=== PATIENT | female | born 1975 | race Caucasian/White ===

== ENCOUNTER → 2019-01-10 | Day surgery (SDC) | payer OTHER ==
[2018-12-31 15:26] LABS: ANION GAP 14.3 mmol/L (8-16); BLOOD UREA NITROGEN 22 mg/dL (7-26); BUN/CREATININE RATIO 24 (6-25); CALCIUM 10.1 mg/dL (8.4-10.2); CARBON DIOXIDE 24 mmol/L (22-29); CHLORIDE 103 mmol/L (98-107); CREATININE, SERUM 0.91 mg/dL (0.57-1.11); EST GLOMERULAR FILTRATION RATE > 60 ML/MIN (60-); GLUCOSE 90 mg/dL (74-118); POTASSIUM 4.3 mmol/L (3.5-5.1); SODIUM 137 mmol/L (136-145)
--- NOTE | 2018-12-31 16:01 | Diagnostic Imaging Report ---
EXAM: ABDOMEN-1VIEW (KUB) DATE: 12/31/2018 2:49 PM INDICATION: Preoperative evaluation, ESWL COMPARISON: None Impression: Bowel gas pattern appears nonobstructive. No pathologic without a loops of bowel are identified. No intraperitoneal free air is appreciated. There is a subcentimeter calcification identified overlying the left renal shadow which may represent renal stone. No other abnormal intraabdominal calcification is appreciated. No acute osseous abnormality is identified. Signed by: Dr. Earl Burden MD on 12/31/2018 3:58 PM
[~2019-01-10] MED LIST: AMPICILLIN SOD 1 GM/NS 50ML 50 ML IV ONE; B&O 60MG R/S 60 MG SUPP PR ONE; CEFTRIAXONE SOD 1 GM/NS 50 ML 50 ML IV ONE; CEFTRIAXONE SOD 1 GRAM/0.9% SOD CHL 50ML BAG IV ONE; DEXAMETHASONE SOD PHOS INJ 4 MG/ML VIAL ONE; FENTANYL CITRATE/PF 100MCG/2 ML INJ ONE; HYDRALAZINE HCL 20 MG/ML VIAL ONE; HYDROMORPHONE 2MG/ML 2 MG/ML ML ONE; IOPAMIDOL 610MG/1ML 300 MG/ML VIAL IV ONE; LIDOCAINE HCL 2% LOCAL INJ 5 ML SDV VIAL INJ ONE; METOCLOPRAMIDE HCL 10 MG/2ML VIAL ONE; MIDAZOLAM HCL 2 MG/2 ML VIAL ONE; ONDANSETRON HCL INJ 2MG/ML 2ML 2 MG/ML VIAL ONE; OXYBUTYNIN CHLOR5 M1 PO; PROMETHAZINE HCL (IM) 25 MG/ML VIAL ONE; PROPOFOL IV EMULSION 10 MG/ML 20 ML VIAL ONE; SEVOFLURANE INHAL SOLN 250 ML PEN BTL ONE
--- OUTSIDE RECORDS SUMMARY | 2019-01-10 09:07 | XMS REPORT ---
Author Author [facility] Address Unknown Phone Unavailable Care Team Providers Care Hydrogen Treater Name Role Phone MELINA BOND Unavailable Unavailable Problems This patient has no known problems. Allergies, Adverse Reactions, Alerts This patient has no known allergies or adverse reactions. Medications This patient has no known medications. Results Test Description Test Time Test Comments Text Results Atomic Results Result Comments ABDOMEN-1VIEW (KUB) 2018-12-31 15:56:00 [place] [address] Patient Name: ANNA MAYO MR #: [id number] : 1975 Age/Sex: 43/F Req #: [id number] Adm Physician: Ordered by: MELINA BOND MD Report #: [id number] Location: OR Room/Bed: Procedure: [id number] DX/ABDOMEN-1VIEW (KU) Exam Date: 12/31/18 Exam Time: 1516 REPORT STATUS: Signed EXAM: ABDOMEN-1VIEW (KU) DATE: 12/31/2018 2:49 PM INDICATION: Preoperative evaluation, ESWL COMPARISON: None Impression: Bowel gas pattern appears nonobstructive. No pathologic without a loops of bowel are identified. No intraperitoneal free air is appreciated. There is a subcentimeter calcification identified overlying the left renal shadow which may represent renal stone. No other abnormal intraabdominal calcification is appreciated. No acute osseous abnormality is identified. Signed by: Dr. Earl Borrero MD on 12/31/2018 3:58 PM Dictated By: EARL BORRERO MD [id number] Transcribed By: MAGUI on 12/31/18 4412 COPY TO: MELINA BOND MD
[2019-01-10 14:40] VITALS: BP 138/84
--- NOTE | 2019-02-15 21:57 | Operative Report ---
DATE OF PROCEDURE: 01/10/2019 SURGEON: Jaya Gleason MD PREOPERATIVE DIAGNOSES: 1. Left nephrolithiasis. 2. Gross hematuria. 3. Microscopic hematuria. 4. Urinary tract infection. POSTOPERATIVE DIAGNOSES: 1. Left nephrolithiasis. 2. Gross hematuria. 3. Microscopic hematuria. 4. Urinary tract infection. 5. Grade 1 cystocele. 6. Grade 1 rectocele. 7. Urethral hypermobility. OPERATION PERFORMED: Note, these were all staged procedures as part of multi-staged and multi-step process in managing the patient's urolithiasis. 1. Left-sided extracorporeal shockwave lithotripsy (separate procedure performed for the left lower calyceal 6 mm stone). 2. Cystourethroscopy with bilateral ureteral catheterization and retrograde ureteropyelography (separate procedure performed for the hematuria and urinary tract infections). 3. Interpretation of retrograde ureteropyelography. 4. Supervision of fluoroscopy, no radiologist present. 5. Pelvic examination under anesthesia. ANESTHESIA: General. COMPLICATIONS: None. CLINICAL SUMMARY: Ms. Elder is a 43-year-old woman with the above preoperative diagnoses. She was brought for the above procedures. She is aware of the risks of bleeding, infection, injury to adjacent structures, need for additional procedures, and elected to proceed. OPERATIVE PROCEDURE IN DETAIL: Informed consent was verified. Hilary Elder was properly identified, taken to the operating room, placed on the lithotripsy table in supine position, and anesthesia was uneventfully begun. The patient's left lower pole 6 mm stone was localized with biplanar fluoroscopy. A total of 3000 shocks were delivered with excellent fragmentation. The stone, however, was hard and required full 3000 shocks. The patient was then carefully and gently repositioned in dorsal lithotomy position with all pressure points well padded. Her genitalia were prepared and draped in usual sterile fashion. The cystoscope sheath with obturator in place was atraumatically inserted into the patient's urethra and bladder was drained. Panendoscopy of the urinary bladder revealed a grade 1-2 trabeculations, but no tumors, no stones, no diverticula, no suspicious mucosal lesions were identified. An 8-Swedish catheter was used to cannulate each ureter and retrograde ureteropyelography was performed. Interpretation of retrograde ureteropyelography contrast was instilled in a retrograde fashion bilaterally. The right side was unremarkable. There were no tumors. There were no suspicious lesions. Unobstructed drainage was observed. The left side exhibited no hydronephrosis. There were filling defects corresponding to the lithotripsy and the urolithiasis. Unobstructed drainage was observed fluoroscopically. The patient's bladder was drained and cystoscope was withdrawn. Pelvic examination revealed a grade 1 cystocele, grade 1 rectocele. No suspicious mucosal lesions were identified. There was urethral hypermobility present. No abnormal palpable pelvic masses could be discerned. A belladonna and opium suppository were placed, and the patient was uneventfully reversed from anesthesia and taken to recovery in stable condition. There were no complications to the procedure. She tolerated the procedure well. Explicit postop instructions were given and we will plan on returning the patient to the operating room for another left ESWL. MD CHECO Alcala/JULIAN /[id number]
== END | disposition home or self-care (01) ==
LOC: OR 09:05
PROVIDERS: ATTEND Urology
DX: N20.0 Calculus of kidney (principal); Z01.812 Encounter for preprocedural laboratory examination; Z88.5 Allergy status to narcotic agent; Z88.2 Allergy status to sulfonamides; Z88.8 Allergy status to other drugs, medicaments and biological substances; K21.9 Gastro-esophageal reflux disease without esophagitis; F41.9 Anxiety disorder, unspecified; I73.9 Peripheral vascular disease, unspecified; I10 Essential (primary) hypertension; N39.0 Urinary tract infection, site not specified; N36.41 Hypermobility of urethra; R31.29 Other microscopic hematuria; Z87.442 Personal history of urinary calculi; R35.1 Nocturia; R39.14 Feeling of incomplete bladder emptying; N20.1 Calculus of ureter; N13.30 Unspecified hydronephrosis; E66.9 Obesity, unspecified; N32.81 Overactive bladder; N81.89 Other female genital prolapse; R31.0 Gross hematuria; Z68.33 Body mass index [BMI] 33.0-33.9, adult; N81.10 Cystocele, unspecified; N81.6 Rectocele
CPT/HCPCS: 36415; 50590; 52005; 74018; 80048; 81025; 83970; 84550; J0360; J0696; J1100; J1170; J2001; J2250; J2405; J2550; J2704; J2765; J3010; Q9967

== ENCOUNTER → 2019-04-23 | Outpatient (CLI) | payer OTHER ==
[~2019-04-23] MED LIST changes: -AMPICILLIN SOD 1 GM/NS 50ML 50 ML IV ONE; -B&O 60MG R/S 60 MG SUPP PR ONE; -CEFTRIAXONE SOD 1 GM/NS 50 ML 50 ML IV ONE; -CEFTRIAXONE SOD 1 GRAM/0.9% SOD CHL 50ML BAG IV ONE; -DEXAMETHASONE SOD PHOS INJ 4 MG/ML VIAL ONE; -FENTANYL CITRATE/PF 100MCG/2 ML INJ ONE; -HYDRALAZINE HCL 20 MG/ML VIAL ONE; -HYDROMORPHONE 2MG/ML 2 MG/ML ML ONE; -IOPAMIDOL 610MG/1ML 300 MG/ML VIAL IV ONE; +IOTHALAMATE MEGLUMINE 17.20% 250 ML BTL ONE; -LIDOCAINE HCL 2% LOCAL INJ 5 ML SDV VIAL INJ ONE; +LISINOPRIL10 MG PO; -METOCLOPRAMIDE HCL 10 MG/2ML VIAL ONE; -MIDAZOLAM HCL 2 MG/2 ML VIAL ONE; -ONDANSETRON HCL INJ 2MG/ML 2ML 2 MG/ML VIAL ONE; -PROMETHAZINE HCL (IM) 25 MG/ML VIAL ONE; -PROPOFOL IV EMULSION 10 MG/ML 20 ML VIAL ONE; -SEVOFLURANE INHAL SOLN 250 ML PEN BTL ONE
--- NOTE | 2019-04-23 15:46 | Diagnostic Imaging Report ---
ADDENDUM #1 ADDENDUM: The referring physician was incorrectly entered into the system as Dr. Bowles. The correct referring physician is Dr. Jaya Gleason. The report will be forwarded to Dr. Gleason by the radiology department. Signed by: Gaudencio Vasquez MD on 04/24/2019 10:[address] of the abdomen and pelvis, without contrast, 04/23/2019. History: Renal calculus, recent right ureteral reimplantation. Comparison: 04/08/2014. Technique: Multidetector CT scanning of the abdomen and pelvis was performed from the level of the lung bases to the inferior pubic rami without contrast. Coronal and sagittal multiplanar reformations were obtained. RADIATION DOSE: Total DLP: 723 mGy*cm Dose modulation, iterative reconstruction, and/or weight based adjustment of the mA/kV was utilized to reduce the radiation dose to as low as reasonably achievable. Discussion: Evaluation is limited without IV or oral contrast. LUNG BASES: There is bibasilar linear atelectasis. ABDOMEN: There is mild right hydronephrosis and dilatation of the ureter down to the bladder. A double-J internal ureteral stent is present extending from the right renal pelvis into the bladder. Several subcentimeter stones present within both kidneys, measuring 2 to 3 mm on the right and 3 to 6 mm on the left. There is no hydronephrosis or hydroureter on the left. Cholecystectomy clips are present. The liver, biliary tree, spleen, pancreas, and adrenal glands are unremarkable. The abdominal aorta is within normal limits for size. There is no bowel dilatation. The appendix is visualized and is normal. Multiple colonic diverticuli are present distally. There is no evidence of adenopathy or free fluid. PELVIS: A Catlaan catheter is present within the bladder as well as a small amount of air multiple surgical clips are present along the right superior aspect of the bladder. Ill-defined fluid collections and fat stranding are present in the pelvis superior to the bladder. There is no evidence of adenopathy. BONES AND SOFT TISSUES: Degenerative changes are present throughout the lumbar spine without evidence of lytic or sclerotic lesion. IMPRESSION: 1. Postoperative changes involving the distal right ureter with mild right hydronephrosis and dilatation of the right ureter. Right internal ureteral stent is in place. Ill-defined fluid collections in the superior pelvis may be related to prior surgery or urinoma. The patient subsequently had a fluoroscopic cystogram which demonstrated no evidence of leak from the bladder. 2. Multiple bilateral nonobstructing renal calculi. 3. Sigmoid diverticulosis. Signed by: Tray Mason on 04/23/2019 3:43 PM
--- NOTE | 2019-04-23 15:49 | Diagnostic Imaging Report ---
ADDENDUM #1 ADDENDUM: The referring physician was incorrectly entered into the system as Dr. Bowles. The correct referring physician is Dr. Jaya Gleason. The report will be forwarded to Dr. Gleason by the radiology department. Signed by: Gaudencio Vasquez MD on 04/24/2019 10:38 AM ORIGINAL REPORT Cystogram. History: Right ureteral reimplantation. Comparison: None available. Discussion: 200 cc of contrast was instilled into the bladder via a previously placed Catalan catheter. Multiple images in the frontal and oblique projections were obtained during filling, with maximal distention, and postvoid. The patient tolerated the procedure well without evidence of complication. Fluoroscopy time: 0.2 minutes. Fluoroscopy dose: 16.8 mGy (LILIAN) [employer] views demonstrates multiple surgical clips in the right superior pelvis. A right internal ureteral stent is in place. With contrast administration, there is good bladder distention which demonstrates no evidence of filling defect . No contrast extravasation or vesicoureteral reflux is seen. Catalan catheter and balloon are present. IMPRESSION: Normal cystogram. No evidence of leak or reflux. The Catalan catheter was removed at the request of ordering physician at termination of procedure. Signed by: Tray Mason on 04/23/2019 3:46 PM
== END ==
LOC: DX 13:13
PROVIDERS: ATTEND Urology
DX: N20.0 Calculus of kidney (principal); N36.41 Hypermobility of urethra; N81.89 Other female genital prolapse
CPT/HCPCS: 74176; 74430; Q9958

== ENCOUNTER → 2019-06-20 | Day surgery (SDC) | payer OTHER ==
[~2019-06-20] MED LIST changes: +B&O 60MG R/S 60 MG SUPP PR ONE; +CEFTRIAXONE SOD 1 GM/NS 50 ML 50 ML IV ONE; +CEFUROXIME500 MG PO; +DEXAMETHASONE SOD PHOS INJ 4 MG/ML VIAL ONE; +FENTANYL CITRATE/PF 100MCG/2 ML INJ ONE; +FLUCONAZOLE100 MG PO; +GENTAMICIN SULFATE 160 MG in SODIUM CHLORIDE 0.9% 100 ML 100 ML IV ONE; +HYDROMORPHONE 2MG/ML 2 MG/ML ML ONE; +IOPAMIDOL 300MG/ML 50ML INFUS..BTL IV ONE; -IOTHALAMATE MEGLUMINE 17.20% 250 ML BTL ONE; +LIDOCAINE HCL 2% LOCAL INJ 5 ML SDV VIAL INJ ONE; +MIDAZOLAM HCL 2 MG/2 ML VIAL ONE; +ONDANSETRON HCL INJ 2MG/ML 2ML 2 MG/ML VIAL ONE; +PROPOFOL IV EMULSION 10 MG/ML 20 ML VIAL ONE; +SEVOFLURANE INHAL SOLN 250 ML PEN BTL ONE; +TYLENOL # 31 EA PO
[2019-06-20 14:15] VITALS: BP 118/79
[2019-06-20] MEDS: FLUCONAZOLE 200 MG/100 ML 100 ML IV ONE ×2 (14:48→14:57)
--- NOTE | 2019-07-21 06:19 | Operative Report ---
DATE OF PROCEDURE: 06/20/2019 SURGEON: Jaya Gleason MD PREOPERATIVE DIAGNOSES: 1. Left nephrolithiasis. 2. Right hydronephrosis. 3. Right indwelling ureteral stent. POSTOPERATIVE DIAGNOSES: 1. Left nephrolithiasis. 2. Right hydronephrosis. 3. Right indwelling ureteral stent. 4. Grade 1 cystocele. 5. Grade 1 rectocele. OPERATIONS PERFORMED: Note these were all staged procedures as part of multistaged, multistep process of managing the patient's ureteral reimplantation as well as nephrolithiasis. The patient is status post left ESWL. She is also status post right ureteral reimplantation and stent placement. 1. Cystourethroscopy with left ureteral catheterization and retrograde ureteropyelography (separate procedure performed due to left nephrolithiasis). 2. Interpretation of retrograde ureteropyelography. 3. Supervision of fluoroscopy, no radiologist present. 4. Cystourethroscopy with complicated removal of right indwelling ureteral stent (separate procedure performed with separate scope for the diagnosis of stent). 5. Right ureteroscopy (separate procedure performed to evaluate the patient's hydronephrosis). 6. Radiological services for supervision and interpretation of ureteroscopy. 7. Pelvic examination under anesthesia. ANESTHESIA: General. COMPLICATIONS: None. CLINICAL SUMMARY: Hilary Elder is a 44-year-old woman with a complex history as mentioned above. She is brought for the above procedures. She is aware of the risks of bleeding, infection, injury to adjacent structures, need for additional procedures and elected to proceed. OPERATIVE PROCEDURE IN DETAIL: Informed consent was verified, Hilary Elder was properly identified and taken to the operating room, placed on the cystoscopy table in supine position. Anesthesia was uneventfully begun, was verified. The patient was being given antibiotics. She was carefully gently repositioned in dorsal lithotomy position. All pressure points well padded. Her genitalia were prepared and draped in usual sterile fashion. The cystoscope sheath with obturator in place was atraumatically inserted. The patient's urethra and bladder were drained. Panendoscopy revealed a stent emerging from the newly reimplanted right ureter. The left ureteral orifice was unremarkable. There were no suspicious lesions. There were signs of mild inflammation in the bladder in the region most specifically where the prior incisions were made. Next, a ureteral catheter was used to cannulate the left ureter and retrograde ureteral pyelograms were performed. A guidewire was then placed alongside the stent and guided to the level of the patient's kidney. The stent was then grasped, completely removed and discarded. A semi-rigid ureteroscope was then placed alongside the guidewire and guided into the patient's distal right ureter. There was no stricture. The ureter was wide open. There were no suspicious lesions in the distal ureter. Interpretation of retrograde ureteropyelography contrast was instilled in retrograde fashion bilaterally. There were multiple clips noted in the pelvis. The left side was unremarkable. There were no tumors, no stones, no diverticula. Unobstructed drainage was observed fluoroscopically. We could not appreciate any stone burden in the left side where we performed lithotripsy. The right side exhibited a fullness as well slightly more than the left side. The ureter was unremarkable. Unobstructed drainage was observed fluoroscopically. The patient's bladder was drained. Cystoscope was withdrawn. Pelvic examination revealed a grade 1 cystocele, grade 1 rectocele. No abnormal palpable pelvic masses could be appreciated. There were no obvious mucosal lesions. The patient was then uneventfully reversed from anesthesia and taken to recovery room in stable condition. There were no complications to the procedure. She tolerated the procedure well. Explicit postop instructions were given. We will follow the patient up in the office. Jaya Gleason MD [place]/MODL /[id number] cc:
== END | disposition home or self-care (01) ==
LOC: OR 09:47
PROVIDERS: ATTEND Urology
DX: N13.2 Hydronephrosis with renal and ureteral calculous obstruction (principal); Z88.5 Allergy status to narcotic agent; Z88.2 Allergy status to sulfonamides; Z88.8 Allergy status to other drugs, medicaments and biological substances; N39.0 Urinary tract infection, site not specified; N36.41 Hypermobility of urethra; R31.29 Other microscopic hematuria; Z87.442 Personal history of urinary calculi; Z96.0 Presence of urogenital implants; N81.10 Cystocele, unspecified; N81.6 Rectocele
CPT/HCPCS: 52351; 74420; 87086; 87186; J0696; J1100; J1170; J1450; J1580; J2001; J2250; J2405; J2704; J3010; Q9967

== ENCOUNTER 2019-06-24 15:24 | Inpatient (IN) | payer OTHER ==
[~2019-06-24] VITALS: Ht 154.9 cm; Wt 81.4 kg
[~2019-06-24 15:24] MED LIST changes: -B&O 60MG R/S 60 MG SUPP PR ONE; -CEFTRIAXONE SOD 1 GM/NS 50 ML 50 ML IV ONE; -CEFUROXIME500 MG PO; -DEXAMETHASONE SOD PHOS INJ 4 MG/ML VIAL ONE; -FENTANYL CITRATE/PF 100MCG/2 ML INJ ONE; -FLUCONAZOLE100 MG PO; -GENTAMICIN SULFATE 160 MG in SODIUM CHLORIDE 0.9% 100 ML 100 ML IV ONE; -HYDROMORPHONE 2MG/ML 2 MG/ML ML ONE; -IOPAMIDOL 300MG/ML 50ML INFUS..BTL IV ONE; -LIDOCAINE HCL 2% LOCAL INJ 5 ML SDV VIAL INJ ONE; -MIDAZOLAM HCL 2 MG/2 ML VIAL ONE; -ONDANSETRON HCL INJ 2MG/ML 2ML 2 MG/ML VIAL ONE; -PROPOFOL IV EMULSION 10 MG/ML 20 ML VIAL ONE; -SEVOFLURANE INHAL SOLN 250 ML PEN BTL ONE; -TYLENOL # 31 EA PO
[2019-06-24] MEDS ORDERED: SODIUM CHLORIDE 0.9% 1000ML 1,000 ML IV STA (15:40)
[2019-06-24] MEDS ORDERED: ACETAMINOPHEN 325 MG TAB PO PRN (15:45)
[2019-06-24] MEDS ORDERED: SODIUM CHLORIDE 0.9% 1000ML 1,000 ML IV SCH ×2 (15:48→19:00)
[2019-06-24] MEDS ORDERED: ASPIRIN 81 MG CHEW TAB PO ONE (16:00)
[2019-06-24] MEDS ORDERED: MORPHINE SULFATE 2 MG/ML SYR 1ML IV PRN (16:00)
[2019-06-24 16:03] LABS: BASOPHILS % 0.3 % (0.0-1.0); EOSINOPHILS % 0.3 % (0.0-6.0); HEMATOCRIT 43.4 % (34.2-44.1); HEMOGLOBIN 14.2 g/dL (12.0-16.0); LYMPHOCYTES % 16.7 % (18.0-39.1); MEAN CORPUSCULAR HEMOGLOBIN 30.3 pg (28-32); MEAN CORPUSCULAR HGB CONC 32.7 g/dL (31-35); MEAN CORPUSCULAR VOLUME 92.7 fL (81-99); MONOCYTES % 8.6 % (4.4-11.3); NEUTROPHILS # (AUTO) 8.6 (2.1-6.9); NEUTROPHILS % 73.7 % (38.7-80.0); PLATELET COUNT 344 x10e3/uL (140-360); RED BLOOD COUNT 4.68 x10e6/uL (3.6-5.1); RED CELL DISTRIBUTION WIDTH 12.1 % (11.7-14.4)
[2019-06-24 16:20] LABS: ALBUMIN 3.9 g/dL (3.5-5.0); ALBUMIN/GLOBULIN RATIO 0.9 (0.8-2.0); ANION GAP 15.2 mmol/L (8-16); CALCIUM 10.5 mg/dL (8.4-10.2); CREATINE KINASE 21 IU/L (29-168); CREATININE, SERUM 1.06 mg/dL (0.57-1.11); POTASSIUM 4.2 mmol/L (3.5-5.1)
[2019-06-24 16:26] LABS: CLARITY,URINE CLOUDY (CLEAR); COLOR,URINE YELLOW (YELLOW); LEUKOCYTE ESTERASE ,URINE 1+ (NEGATIVE); NITRITE,URINE NEGATIVE (NEGATIVE)
[2019-06-24 16:27] LABS: BILIRUBIN,URINE NEGATIVE (NEGATIVE); KETONES,URINE NEGATIVE (NEGATIVE); PROTEIN,URINE DIPSTICK 1+ (NEGATIVE); URINE UROBILINOGEN 0.2 mg/dL (0.2 - 1)
[2019-06-24] MEDS ORDERED: HYDROMORPHONE 1MG/1ML INJ IV STA ×2 (16:44→17:49)
[2019-06-24] MEDS ORDERED: ONDANSETRON HCL INJ 2MG/ML 2ML 2 MG/ML VIAL IV STA (16:46)
[2019-06-24 16:54] LABS: BACTERIA,URINE MODERATE /HPF; EPITHELIAL CELLS,URINE MODERATE /LPF; WBC,URINE (MAN) >50 /HPF (0-5)
[2019-06-24] MEDS ORDERED: AMPICILLIN SOD 1 GM/NS 50ML 50 ML IV SCH (17:00)
--- NOTE | 2019-06-24 17:09 | Diagnostic Imaging Report ---
EXAM: CT Abdomen and Pelvis WITHOUT intravenous contrast INDICATION: Right flank pain COMPARISON: KUB of 05/15/2019, abdomen and pelvis CT of 04/23/2019 TECHNIQUE: Abdomen and pelvis were scanned utilizing a multidetector helical scanner from the lung base to the pubic symphysis without administration of IV contrast. Coronal and sagittal reformations were obtained. IV CONTRAST: None ORAL CONTRAST: Water COMPLICATIONS: None RADIATION DOSE: Total DLP: 418.1 mGy*cm Dose modulation, iterative reconstruction, and/or weight based adjustment of the mA/kV was utilized to reduce the radiation dose to as low as reasonably achievable. FINDINGS: LOWER THORAX: Normal. HEPATOBILIARY: No focal lesion. Status post cholecystectomy. SPLEEN: No splenomegaly. PANCREAS: No focal masses or ductal dilatation. ADRENALS: No adrenal nodules. KIDNEYS/URETERS: Status post interval removal of right double-J internal nephroureteral stent. Moderate right hydroureteronephrosis with a small focus of air in the right proximal ureter likely related to recent instrumentation. There are numerous metallic clips along the course of the right distal ureter and in the lower pelvis. 2 mm right upper pole renal calculus. Scattered 4 to 5 mm left upper pole and left lower pole nonobstructive renal calculi. PELVIC ORGANS/BLADDER: Small amount of air in the bladder, likely related to recent instrumentation. PERITONEUM / RETROPERITONEUM: 4.3 x 4.1 x 4.6 cm right pelvic structure directly anterior to the bladder may represent continued evolution of previously seen complex pelvic fluid. LYMPH NODES: No lymphadenopathy. VESSELS: Unremarkable. GI TRACT: Mild diverticulosis. No CT evidence of diverticulitis. No abnormal bowel thickening. No bowel obstruction. Normal appendix. BONES AND SOFT TISSUES: No acute osseous injury. No suspicious lytic or blastic lesions. IMPRESSION: Status post removal of right internal nephroureteral stent. Moderate right hydroureteronephrosis and findings of recent retrograde instrumentation. 4.3 x 4.1 x 4.6 cm right pelvic structure directly anterior to the bladder may represent continued evolution of previously seen complex pelvic fluid. Continued follow-up to resolution is recommended to exclude underlying mass lesion. Signed by: Gaudencio Vasquez MD on 06/24/2019 5:07 PM
[2019-06-24] MEDS: LEVOFLOXACIN 750MG/D5W 150ML 150 ML IV SCH (17:14)
--- NOTE | 2019-06-24 17:37 | NUR ---
client requesting additional pain medicine, Dr. Silvestre mad aware. Awaiting new orders.
[2019-06-24] MEDS ORDERED: HYDROMORPHONE 1MG/1ML INJ ONE (17:57)
[2019-06-24] MEDS ORDERED: SODIUM CHLORIDE 0.9% 1000ML 1,000 ML IV ONE (18:45)
[2019-06-24] MEDS: AMPICILLIN SOD 1 GM/NS 50ML 50 ML IV SCH (20:10)
[2019-06-24] MEDS: SODIUM CHLORIDE 0.9% 1000ML 1,000 ML IV SCH (21:18)
--- NOTE | 2019-06-24 21:20 | NUR ---
DR Ethan HENDERSON CALLED REGARDING PATIENT HOME MEDICATION. NO ANSWER AT THIS TIME, VOICEMAIL RECORDED.
[2019-06-24] MEDS ORDERED: TYLENOL # 31 EA PO (21:33)
[2019-06-24] MEDS ORDERED: FLUCONAZOLE100 MG PO (21:33)
[2019-06-24] MEDS ORDERED: CEFUROXIME500 MG PO (21:33)
[2019-06-24] MEDS: ONDANSETRON HCL INJ 2MG/ML 2ML 2 MG/ML VIAL IV PRN (22:39)
[2019-06-25] VITALS (11 sets, daily range): BP systolic 101–142; BP diastolic 63–102
[2019-06-25] MEDS: SODIUM CHLORIDE 0.9% 1000ML 1,000 ML IV SCH ×3 (00:54→21:38)
--- NOTE | 2019-06-25 00:56 | NUR ---
REPORT RECEIVED FROM ER NURSE, PATIENT PENDING ARRIVAL TO THE FLOOR, REPORTED PATIENT AOX3, NO C/O PAIN OR DISCOMFORT AT THIS TIME, NO NARCOTICS PRN PAIN MEDICATION ON JUL, RECREATION PROFESSOR ATTEMPTED TO CALL MD FOR ORDERS NO RESPONSE, WILL MONITOR FOR PAIN AND DISCOMFORT
[2019-06-25] MEDS ORDERED: HYDROMORPHONE 1MG/1ML INJ IV STA (01:41)
[2019-06-25] MEDS: ONDANSETRON HCL INJ 2MG/ML 2ML 2 MG/ML VIAL IV PRN (02:12)
[2019-06-25 02:19] LABS: CREATINE KINASE 19 IU/L (29-168)
--- NOTE | 2019-06-25 02:28 | NUR ---
MD Jin HENDERSON PAGED REGARDING PATIENT PRN IV PAIN MEDICATION, IV DILAUDID 1MG Q4H NOW , THEN Q4H ORDERED, ORDER CARRIED OUT, ADDED TO eMAR, GIVEN FOR PAIN LEVEL 7/10 RIGHT FLANK PAIN RADIATING DOWN RIGHT LEG, PATIENT TOLERATED WELL, IV PATENT FLUSHES WELL, IV FLUSHES CONTINUOUS RUNNING W/O DIFFICULTY, SITE INTACT
[2019-06-25] MEDS: AMPICILLIN SOD 1 GM/NS 50ML 50 ML IV SCH ×3 (05:25→21:46)
[2019-06-25 06:33] LABS: BASOPHILS % 0.5 % (0.0-1.0); EOSINOPHILS # (AUTO) 0.1 (0.0-0.4); EOSINOPHILS % 1.8 % (0.0-6.0); HEMATOCRIT 34.4 % (34.2-44.1); HEMOGLOBIN 11.3 g/dL (12.0-16.0); LYMPHOCYTES # (AUTO) 1.8 (1.0-3.2); LYMPHOCYTES % 22.8 % (18.0-39.1); MEAN CORPUSCULAR HEMOGLOBIN 30.6 pg (28-32); MEAN CORPUSCULAR HGB CONC 32.8 g/dL (31-35); MEAN CORPUSCULAR VOLUME 93.2 fL (81-99); MONOCYTES % 12.3 % (4.4-11.3); NEUTROPHILS # (AUTO) 4.9 (2.1-6.9); NEUTROPHILS % 62.2 % (38.7-80.0); PLATELET COUNT 204 x10e3/uL (140-360); RED BLOOD COUNT 3.69 x10e6/uL (3.6-5.1); RED CELL DISTRIBUTION WIDTH 11.9 % (11.7-14.4)
[2019-06-25 07:09] LABS: CREATINE KINASE 16 IU/L (29-168)
[2019-06-25 07:11] LABS: ALANINE AMINOTRANSFERASE 10 IU/L (0-55); ALBUMIN 2.8 g/dL (3.5-5.0); ALBUMIN/GLOBULIN RATIO 1.1 (0.8-2.0); ALKALINE PHOSPHATASE 94 IU/L (40-150); ANION GAP 9.5 mmol/L (8-16); BLOOD UREA NITROGEN 15 mg/dL (7-26); BUN/CREATININE RATIO 21 (6-25); CALCIUM 8.5 mg/dL (8.4-10.2); CARBON DIOXIDE 23 mmol/L (22-29); CHLORIDE 112 mmol/L (98-107); EST GLOMERULAR FILTRATION RATE > 60 ML/MIN (60-); GLUCOSE 100 mg/dL (74-118); POTASSIUM 4.5 mmol/L (3.5-5.1); SODIUM 140 mmol/L (136-145)
--- NOTE | 2019-06-25 12:00 | NUR ---
patient has been converted to inpatient for extended ABX.
[2019-06-25] MEDS: FLUCONAZOLE 100 MG TAB PO SCH (12:58)
[2019-06-25] MEDS: OXYBUTYNIN CHLORIDE XL 5 MG TAB PO SCH ×2 (15:43→21:46)
[2019-06-25] MEDS: LEVOFLOXACIN 750MG/D5W 150ML 150 ML IV SCH (15:43)
[2019-06-25] MEDS: ACETAMINOPHEN/CODEINE 300MG - 30MG TAB PO PRN (21:44)
--- NOTE | 2019-06-25 23:39 | NUR ---
BSSR RECEIVED FROM RADHA IRELAND, PATIENT AOX4, NO DISTRESS, SEEN VISITING WITH FAMILY AT BEDSIDE, REPORTS FEELING BETTER BUT STILL HAVING MODERATE PAIN
[2019-06-26] VITALS (9 sets, daily range): BP systolic 103–137; BP diastolic 70–94
[2019-06-26] MEDS: SODIUM CHLORIDE 0.9% 1000ML 1,000 ML IV SCH ×3 (03:30→18:44)
[2019-06-26] MEDS: AMPICILLIN SOD 1 GM/NS 50ML 50 ML IV SCH ×3 (04:56→22:31)
--- NOTE | 2019-06-26 07:00 | NUR ---
BSSR GIVEN TO SHU GARCIA, PATIENT SEEN LYING COMFORTABLY IN BED, UPDATE WITH PLAN OF CARE, CONTINUE IV ABT THERAPY, PAIN LEVEL TOLERABLE
[2019-06-26] MEDS: OXYBUTYNIN CHLORIDE XL 5 MG TAB PO SCH ×3 (08:16→22:31)
[2019-06-26] MEDS: FLUCONAZOLE 100 MG TAB PO SCH (08:17)
[2019-06-26] MEDS: LISINOPRIL 10 MG TAB PO SCH (08:17)
[2019-06-26] MEDS: LEVOFLOXACIN 750MG/D5W 150ML 150 ML IV SCH (16:13)
[2019-06-26] MEDS: HYDROMORPHONE 1MG/1ML INJ IV PRN (22:41)
[2019-06-27] VITALS (11 sets, daily range): BP systolic 121–141; BP diastolic 83–100
[2019-06-27] MEDS: SODIUM CHLORIDE 0.9% 1000ML 1,000 ML IV SCH ×3 (02:00→17:00)
[2019-06-27] MEDS: AMPICILLIN SOD 1 GM/NS 50ML 50 ML IV SCH ×3 (05:53→22:33)
[2019-06-27] MEDS: FLUCONAZOLE 100 MG TAB PO SCH (10:24)
[2019-06-27] MEDS: OXYBUTYNIN CHLORIDE XL 5 MG TAB PO SCH ×3 (10:24→22:33)
[2019-06-27] MEDS: LISINOPRIL 10 MG TAB PO SCH (10:25)
[2019-06-27] MEDS ORDERED: LEVOFLOXACIN 500 MG TAB PO SCH (17:00)
[2019-06-27] MEDS ORDERED: PHENAZOPYRIDINE HCL 100 MG TAB PO PRN (18:00)
--- NOTE | 2019-06-27 19:00 | NUR ---
PATIENT RECEIVED, ROOM TRANSFER, DURING BEDSIDE SHIFT REPORT. PATIENT RESTING IN BED AT THIS TIME. STATES PAIN IN R FLANK IS 4-5, DOES NOT WANT PAIN MEDICATION AT THIS TIME. NO S&S OF DISTRESS NOTED. BED LOCKED IN LOWEST POSITION, SIDE RAILS UPX2, CALL LIGHT IN REACH.
--- NOTE | 2019-06-27 20:30 | NUR ---
IV TO R FA 20G NOTED TO BE OCCLUDED. REMOVED, CATHETER TIP INTACT, PRESSURE DRESSING APPLIED. NEW IV ACCESS OBTAINED IN R FA 22G, FIRST ATTEMPT.
[2019-06-27] MEDS: HYDROMORPHONE 1MG/1ML INJ IV PRN (22:27)
[2019-06-27] MEDS: ONDANSETRON HCL INJ 2MG/ML 2ML 2 MG/ML VIAL IV PRN (22:27)
[2019-06-28] VITALS: BP 118/70
[2019-06-28] MEDS: SODIUM CHLORIDE 0.9% 1000ML 1,000 ML IV SCH ×2 (02:00→10:15)
[2019-06-28] MEDS: HYDROMORPHONE 1MG/1ML INJ IV PRN ×2 (03:19→08:18)
[2019-06-28] MEDS: ONDANSETRON HCL INJ 2MG/ML 2ML 2 MG/ML VIAL IV PRN ×2 (03:19→08:18)
[2019-06-28 04:00] VITALS: BP 113/77
[2019-06-28] MEDS: AMPICILLIN SOD 1 GM/NS 50ML 50 ML IV SCH ×2 (05:39→12:33)
--- NOTE | 2019-06-28 06:56 | NUR ---
RECEIVED BEDSIDE SHIFT REPORT FROM OFF GOING NURSE. PATIENT IS RESTING IN BED, NO ACUTE DISTRESS NOTED. CALL LIGHT WITHIN REACH. BED IN THE LOWEST POSITION.
[2019-06-28 08:18] VITALS: BP 121/86
[2019-06-28] MEDS: FLUCONAZOLE 100 MG TAB PO SCH (08:23)
[2019-06-28] MEDS: OXYBUTYNIN CHLORIDE XL 5 MG TAB PO SCH (08:23)
[2019-06-28] MEDS: LISINOPRIL 10 MG TAB PO SCH (08:24)
[2019-06-28 09:16] VITALS: BP 121/86
[2019-06-28 12:15] VITALS: BP 130/93
[2019-06-28] MEDS: ACETAMINOPHEN/CODEINE 300MG - 30MG TAB PO PRN (12:34)
--- NOTE | 2019-06-28 14:15 | NUR ---
Received discharge order from MD. Patient is in stable condition. IV line to right forearm discontinued with tip intact, pressure applied to site, no bleeding noted. Discharge teaching provided to patient, she verbalized understanding. All personal items on hand. DC folder with paperwork/prescriptions on hand. Patient refused wheelchair, accompanied to private auto by staff.
--- NOTE | 2019-06-28 14:51 | Discharge Summary ---
The patient is a 44-year-old female with past medical history positive for kidney stone, hypertension. She had a stent removed pretty recently, came to the hospital with fever, chills. She was diagnosed with pyelonephritis. Started on IV antibiotics. The patient is afebrile. White blood count is normal. Dr. Kerr evaluated the patient and cleared him for discharge. She is going home today. Dr. Gleason, Urology, saw the patient. He agreed with discharge to home today. PHYSICAL EXAMINATION: ABDOMEN: Soft, nontender. No distention. No visceromegaly. VITAL SIGNS: Blood pressure 130/93, temperature 36.9, heart rate 74 per minute, respiratory rate 18 per minute, oxygen saturation 100%. LABORATORY DATA: On the BMP; sodium 140, potassium 4.5, chloride 112, CO2 23, BUN 15, creatinine 0.70, glucose 100. On CBC; white blood count 7.80, hemoglobin 11.3, hematocrit 34.4, platelet count 104,000. AST 10, ALT 10, total bilirubin 0.3. Alkaline phosphatase 184. IMPRESSION: 1. Status post pyelonephritis. 2. Right hydronephrosis, status post stent removal. 3. Acute and anemia of chronic disease. 4. Hypertension. PLAN OF TREATMENT: The patient going to be discharged with Augmentin 875 mg twice a day for [address] Kerr. Continue rest of the home medications, which include oxybutynin 5 mg 3 times a day. Continue lisinopril 10 mg daily. Continue Tylenol 3 q.4 hours as needed for severe pain and Pyridium 100 mg 3 times a day. Follow up with Dr. Gleason and Dr. Krer in a week. MD ASHIA Lemon/DAVIDL /[id number]
== END 2019-06-28 14:16 | disposition home or self-care (01) | DRG 690 ==
LOC: ER 15:24 → ERHOLD 16:15 → IMCU 06-25 00:59 → OBSVTOIN 06-25 11:22 → MED/SURG 06-27 18:44
DX: N13.6 Pyonephrosis (principal); I10 Essential (primary) hypertension; N32.81 Overactive bladder; Z88.5 Allergy status to narcotic agent; Z88.2 Allergy status to sulfonamides; Z88.8 Allergy status to other drugs, medicaments and biological substances; Z87.442 Personal history of urinary calculi; Z09 Encounter for follow-up examination after completed treatment for conditions other than malignant neoplasm; E66.9 Obesity, unspecified; Z68.33 Body mass index [BMI] 33.0-33.9, adult; D64.9 Anemia, unspecified
CPT/HCPCS: 36415; 74176; 80053; 81001; 82550; 82553; 83605; 84484; 85025; 87040; 87086; 96374; 99284; G0378; J0290; J1170; J2405; J7030

== ENCOUNTER 2019-07-08 01:58 | Emergency (ER) | payer OTHER ==
[~2019-07-08] VITALS: Ht 154.9 cm; Wt 81.2 kg
[~2019-07-08 01:58] MED LIST changes: +CEFUROXIME500 MG PO; +FLUCONAZOLE100 MG PO; +TYLENOL # 31 EA PO
[2019-07-08 03:38] LABS: AMPHETAMINES SCREEN,URINE NEGATIVE (NEGATIVE); BENZODIAZEPINES SCREEN,URINE NEGATIVE (NEGATIVE); PHENCYCLIDINE SCREEN,URINE NEGATIVE (NEGATIVE)
[2019-07-08 03:41] LABS: CLARITY,URINE CLOUDY (CLEAR); COLOR,URINE YELLOW (YELLOW)
[2019-07-08 03:42] LABS: BILIRUBIN,URINE 1+ (NEGATIVE); KETONES,URINE NEGATIVE (NEGATIVE); LEUKOCYTE ESTERASE ,URINE 2+ (NEGATIVE); NITRITE,URINE NEGATIVE (NEGATIVE); PROTEIN,URINE DIPSTICK TRACE (NEGATIVE); URINE UROBILINOGEN 0.2 mg/dL (0.2 - 1)
[2019-07-08 03:49] LABS: WBC,URINE (MAN) >50 /HPF (0-5)
[2019-07-08 03:50] LABS: BACTERIA,URINE FEW /HPF; EPITHELIAL CELLS,URINE FEW /LPF; RENAL EPITHELIAL CELLS,URINE FEW; TRANSITIONAL EPI CELLS,URINE FEW
[2019-07-08] MEDS ORDERED: ACETAMINOPHEN 325 MG TAB PO ONE (04:00)
[2019-07-08] MEDS ORDERED: CEFTRIAXONE SOD 1 GM/NS 50 ML 50 ML IV ONE (04:30)
[2019-07-08] MEDS ORDERED: SODIUM CHLORIDE 0.9% 1000ML 1,000 ML IV SCH (04:30)
[2019-07-08 04:49] LABS: BASOPHILS # (AUTO) 0.1 (0.0-0.1); BASOPHILS % 0.9 % (0.0-1.0); EOSINOPHILS # (AUTO) 0.2 (0.0-0.4); HEMATOCRIT 38.9 % (34.2-44.1); LYMPHOCYTES # (AUTO) 1.8 (1.0-3.2); LYMPHOCYTES % 23.6 % (18.0-39.1); MEAN CORPUSCULAR HEMOGLOBIN 30.4 pg (28-32); MEAN CORPUSCULAR HGB CONC 33.4 g/dL (31-35); MEAN CORPUSCULAR VOLUME 90.9 fL (81-99); MONOCYTES # (AUTO) 0.5 (0.2-0.8); MONOCYTES % 6.6 % (4.4-11.3); NEUTROPHILS # (AUTO) 5.1 (2.1-6.9); NEUTROPHILS % 65.6 % (38.7-80.0); PLATELET COUNT 238 x10e3/uL (140-360); RED BLOOD COUNT 4.28 x10e6/uL (3.6-5.1)
--- NOTE | 2019-07-08 04:59 | Diagnostic Imaging Report ---
EXAM: CT Abdomen and Pelvis WITHOUT contrast INDICATION: Right flank/back. abdominal pain, nausea vomiting COMPARISON: Abdominal CT 06/24/2019, 04/23/2019 TECHNIQUE: Abdomen and pelvis were scanned utilizing a multidetector helical scanner from the lung base to the pubic symphysis without administration of IV contrast. Absence of intravenous contrast decreases sensitivity for detection of focal lesions and vascular pathology. Coronal and sagittal reformations were obtained. Routine protocol was performed. IV CONTRAST: None ORAL CONTRAST: None COMPLICATIONS: None RADIATION DOSE: Total DLP: 497 mGy*cm Estimated effective dose: (DLP x 0.015 x size factor) mSv CTDIvol has been reviewed. It is below the limits set by the Radiation Protocol Committee (RPC). Dose modulation, iterative reconstruction, and/or weight based adjustment of the mA/kV was utilized to reduce the radiation dose to as low as reasonably achievable. FINDINGS: LINES and TUBES: None. LOWER THORAX: Unremarkable HEPATOBILIARY: No focal hepatic lesions. No biliary ductal dilation. GALLBLADDER: No radio-opaque stones or sludge. No wall thickening. SPLEEN: No splenomegaly. PANCREAS: No focal masses or ductal dilatation. ADRENALS: No adrenal nodules KIDNEYS/URETERS: No hydronephrosis. No cystic or solid mass lesions. No stones. Post surgical changes of the distal right ureter. Subtle focal scarring and calcification in the left renal superior pole. Persistent mild prominence of the right renal pelvis. GI TRACT: No abnormal distention, wall thickening, or evidence of bowel obstruction. A few colonic diverticuli. Appendix is normal. PELVIC ORGANS/BLADDER: Decreased size of the cystic and solid mass in the right adnexa compared to 06/24/2018, now measures 3.8 x 3 cm, was 4.4 x 1 cm. Hysterectomy. Urinary bladder under distended. Subtle persistent pelvic fat stranding. LYMPH NODES: No lymphadenopathy. VESSELS: Unremarkable. PERITONEUM / RETROPERITONEUM: No free air or fluid. BONES: Unremarkable. SOFT TISSUES: There is a fat containing para-umbilical hernia. IMPRESSION: Slight decreased size of the 3.8 cm cystic and solid right adnexal mass, which is likely a normal ovary with follicles. A nonemergent pelvic ultrasound can further evaluate. Otherwise no acute abnormality in the abdomen or pelvis on this noncontrast CT. Signed by: Catalino Delgado DO on 07/08/2019 4:56 AM
[2019-07-08 05:07] LABS: ALANINE AMINOTRANSFERASE 14 IU/L (0-55); ALBUMIN/GLOBULIN RATIO 1.1 (0.8-2.0); ALKALINE PHOSPHATASE 109 IU/L (40-150); ANION GAP 14.2 mmol/L (8-16); BLOOD UREA NITROGEN 22 mg/dL (7-26); BUN/CREATININE RATIO 25 (6-25); CALCIUM 9.6 mg/dL (8.4-10.2); CARBON DIOXIDE 24 mmol/L (22-29); CHLORIDE 105 mmol/L (98-107); CREATININE, SERUM 0.87 mg/dL (0.57-1.11); EST GLOMERULAR FILTRATION RATE > 60 ML/MIN (60-); GLUCOSE 114 mg/dL (74-118); POTASSIUM 4.2 mmol/L (3.5-5.1); SODIUM 139 mmol/L (136-145)
[2019-07-08 07:06] VITALS: BP 160/106
== END 2019-07-08 07:12 | disposition home or self-care (01) ==
LOC: ER 01:58
DX: R30.0 Dysuria (principal); M54.5 Low back pain; N30.91 Cystitis, unspecified with hematuria
CPT/HCPCS: 36415; 74176; 80053; 80307; 81001; 81025; 85025; 87086; 99284; J0696; J7030

== ENCOUNTER 2019-12-22 20:57 | Inpatient (IN) | payer OTHER ==
[~2019-12-22] VITALS: Ht 157.5 cm; Wt 82.6 kg
[2019-12-22] MEDS: SODIUM CHLORIDE 0.9% 1000ML 1,000 ML IV SCH (01:05)
[2019-12-22] MEDS ORDERED: HYDROMORPHONE 1MG/1ML INJ IV ONE (21:21)
[2019-12-22] MEDS ORDERED: ONDANSETRON HCL INJ 2MG/ML 2ML 2 MG/ML VIAL IV ONE (21:21)
[2019-12-22 21:56] LABS: BASOPHILS # (AUTO) 0.1 (0.0-0.1); BASOPHILS % 0.8 % (0.0-1.0); EOSINOPHILS # (AUTO) 0.3 (0.0-0.4); EOSINOPHILS % 3.2 % (0.0-6.0); HEMATOCRIT 41.3 % (34.2-44.1); HEMOGLOBIN 13.5 g/dL (12.0-16.0); LYMPHOCYTES # (AUTO) 2.2 (1.0-3.2); LYMPHOCYTES % 21.7 % (18.0-39.1); MEAN CORPUSCULAR HGB CONC 32.7 g/dL (31-35); MEAN CORPUSCULAR VOLUME 94.9 fL (81-99); MONOCYTES # (AUTO) 0.6 (0.2-0.8); MONOCYTES % 6.2 % (4.4-11.3); NEUTROPHILS # (AUTO) 6.9 (2.1-6.9); NEUTROPHILS % 67.8 % (38.7-80.0); PLATELET COUNT 298 x10e3/uL (140-360); RED BLOOD COUNT 4.35 x10e6/uL (3.6-5.1); RED CELL DISTRIBUTION WIDTH 12.5 % (11.7-14.4)
[2019-12-22 22:00] LABS: CLARITY,URINE CLEAR (CLEAR); COLOR,URINE YELLOW (YELLOW); LEUKOCYTE ESTERASE ,URINE 1+ (NEGATIVE); NITRITE,URINE POSITIVE (NEGATIVE); PROTEIN,URINE DIPSTICK NEGATIVE (NEGATIVE)
[2019-12-22 22:01] LABS: BILIRUBIN,URINE NEGATIVE (NEGATIVE); KETONES,URINE NEGATIVE (NEGATIVE); URINE UROBILINOGEN 0.2 mg/dL (0.2 - 1)
--- NOTE | 2019-12-22 22:01 | Emergency Department Note ---
History of Present Illnes History of Present Illness Chief Complaint: Abdominal Complaints History of Present Illness This is a 44 year old female REPORTS RIGHT FLANK PAIN SINCE LAST NIGHT WITH N/V; PT DENIES BURNING WITH URINATION. PT STATES HAS H/O KIDNEY STONES AND HAS EVEN REQUIRES STENTS IN THE PAST, STATES SHE CALLED DR BOND AND HE TOLD HER TO COME TO ER FOR EVALUATION . Historian: Patient, Family Member Arrival Mode: Car Onset (how long ago): day(s) (1) Location: RIGHT FLANK Quality: PAIN Radiation: Reports abdomen (RLQ) Severity: severe Onset quality: sudden Duration (how long): day(s) (1) Timing of current episode: constant Progression: unchanged Chronicity: recurrent Context: Reports other (H/O KIDNEY STONE, PT STATES FEELS LIKE EVERY OTHER TIME SHE HAS HAD A KIDNEY STONE); Denies recent illness, Denies recent surgery, Denies trauma/injury Relieving factors: none Exacerbating factors: none Associated symptoms: Reports nausea/vomiting Treatments prior to arrival: none Past Medical/Family History Physician Review I have reviewed the patient's past medical and family history. Any updates have been documented here. Past Medical History Recent Fever: No Clinical Suspicion of Infectio: No New/Unexplained Change in Ment: No Past Medical History: Hypertension, Asthma, Kidney Stones, Migraines Other Medical History: OVERACTIVE BLADDER Past Surgical History: Cholecysctectomy, Hysterectomy Other Surgery: CYSTOSCOPY TWO NEPHROSTOMY TUBE PLACEMENTS URETERAL STENTS LEFT KNEE SURGERY LITHOTRIPSY Social History Smoking Cessation: Current some day smoker Counseling Performed: No Alcohol Use: None Any Illegal Drug Use: No Family History Family history of heart diseas: No Other Last Tetanus: UNKNOWN Any Pre-Existing Lines (PICC,: No Review of Systems Review of Systems Constitutional: Reports no symptoms EENTM: Reports no symptoms Cardiovascular: Reports no symptoms Respiratory: Reports no symptoms Gastrointestinal: Reports no symptoms, Reports as per HPI Genitourinary: Reports as per HPI Musculoskeletal: Reports no symptoms Integumentary: Reports no symptoms Neurological: Reports no symptoms Psychological: Reports no symptoms Endocrine: Reports no symptoms Hematological/Lymphatic: Reports no symptoms Physical Exam Related Data Allergies: Coded Allergies: Sulfa (Sulfonamide Antibiotics) (Verified Allergy, Unknown, hives, itching, nausea, and vomiting, 06/24/19) ketorolac (Verified Allergy, Unknown, hives, itching, nausea, and vomiting, 06/24/19) morphine (Verified Allergy, Unknown, hives, itching, nausea, and vomiting, 06/24/19) tramadol (Verified Allergy, Unknown, 06/24/19) Triage Vital Signs Vital Signs Date Time Temp Pulse Resp B/P (MAP) Pulse Ox O2 Delivery O2 Flow Rate FiO2 12/22/19 21:10 98.9 102 18 154/98 100 Room Air Vital signs reviewed: Yes Physical Exam CONSTITUTIONAL Constitutional: Present well-developed, Present well-nourished, Present distressed (MODERATE) HENT HENT: Present normocephalic, Present atraumatic, Present oropharynx clear/moist, Present nose normal HENT L/R: Present left ext ear normal, Present right ext ear normal EYES Eyes: Reports PERRL, Reports conjunctivae normal NECK Neck: Present ROM normal PULMONARY Pulmonary: Present effort normal, Present breath sounds normal CARDIOVASCULAR Cardiovascular: Present regular rhythm, Present heart sounds normal, Present capillary refill normal, Present tachycardia (103) GASTROINTESTINAL Abdominal: Present soft, Present nontender, Present bowel sounds normal, Present right CVA tenderness (MODERATE) GENITOURINARY Genitourinary: Present exam deferred SKIN Skin: Present warm, Present dry MUSCULOSKELETAL Musculoskeletal: Present ROM normal NEUROLOGICAL Neurological: Present alert, Present oriented x 3, Present no gross motor or sensory deficits PSYCHOLOGICAL Psychological: Present mood/affect normal, Present judgement normal Results Laboratory Laboratory Laboratory Tests Test 12/22/19 21:53 12/22/19 21:20 Urine Color Yellow (YELLOW) Urine Clarity Clear (CLEAR) Urine pH 6 (5 - 7) Urine Specific [place] 1.025 (1.010-1.025) Urine Protein Negative (NEGATIVE) Urine Glucose (UA) Negative (NEGATIVE) Urine Ketones Negative (NEGATIVE) Urine Blood Trace (NEGATIVE) Urine Nitrite Positive (NEGATIVE) Urine Bilirubin Negative (NEGATIVE) Urine Urobilinogen 0.2 mg/dL (0.2 - 1) Urine Leukocyte Esterase 1+ (NEGATIVE) Urine RBC 11-20 /HPF (0-5) Urine WBC 11-20 /HPF (0-5) Urine Epithelial Cells Few /LPF (NONE) Urine Bacteria Few /HPF (NONE) White Blood Count 10.18 x10e3/uL (4.8-10.8) Red Blood Count 4.35 x10e6/uL (3.6-5.1) Hemoglobin 13.5 g/dL (12.0-16.0) Hematocrit 41.3 % (34.2-44.1) Mean Corpuscular Volume 94.9 fL (81-99) Mean Corpuscular Hemoglobin 31.0 pg (28-32) Mean Corpuscular Hemoglobin Concent 32.7 g/dL (31-35) Red Cell Distribution Width 12.5 % (11.7-14.4) Platelet Count 298 x10e3/uL (140-360) Neutrophils (%) (Auto) 67.8 % (38.7-80.0) Lymphocytes (%) (Auto) 21.7 % (18.0-39.1) Monocytes (%) (Auto) 6.2 % (4.4-11.3) Eosinophils (%) (Auto) 3.2 % (0.0-6.0) Basophils (%) (Auto) 0.8 % (0.0-1.0) Neutrophils # (Auto) 6.9 (2.1-6.9) Lymphocytes # (Auto) 2.2 (1.0-3.2) Monocytes # (Auto) 0.6 (0.2-0.8) Eosinophils # (Auto) 0.3 (0.0-0.4) Basophils # (Auto) 0.1 (0.0-0.1) Absolute Immature Granulocyte (auto 0.03 x10e3/uL (0-0.1) Sodium Level 140 mmol/L (136-145) Potassium Level 3.9 mmol/L (3.5-5.1) Chloride Level 104 mmol/L (98-107) Carbon Dioxide Level 23 mmol/L (22-29) Anion Gap 16.9 mmol/L (8-16) Blood Urea Nitrogen 16 mg/dL (7-26) Creatinine 0.89 mg/dL (0.57-1.11) Estimat Glomerular Filtration Rate > 60 ML/MIN (60-) BUN/Creatinine Ratio 18 (6-25) Glucose Level 92 mg/dL (74-118) Calcium Level 9.6 mg/dL (8.4-10.2) Laboratory Tests Test 12/22/19 21:53 12/22/19 21:20 Lab results reviewed: Yes Imaging Imaging results reviewed: Yes Impressions 7MM STONE RIGHT MID URETER WITH MODERATE HYDRONEPHROSIS Assessment & Plan Medical Decision Making MDM PT WITH H/O KIDNEY STONES WITH RIGHT FLANK PAIN FOR 1 DAYS CBC, BMP, UA, CT ABD/PELVIS ORDERED TO EVAL FOR LEUKOCYTOSIS, RENAL INSUFFICIENCY, UTI, HEMATURIA, KIDNEY STONE DILAUDID 1 MG IV ORDERED ZOFRAN 4 MG IV ORDERED PT FOUND TO HAVE 7 MM OBSTRUCTIVE RIGHT URETEROLITHIASIS AND UTI. ROCEPHIN 1 GRAM IV ORDERED I SPOKE WITH DR BOND AND DR Ethan HENDERSON, ADMIT TO INPATIENT Assessment & Plan Final Impression: (1) Ureterolithiasis (2) UTI (urinary tract infection) Depart Disposition: ADMITTED Last Vital Signs Date Time Temp Pulse Resp B/P (MAP) Pulse Ox O2 Delivery O2 Flow Rate FiO2 12/22/19 21:10 98.9 102 18 154/98 100 Room Air Home Meds Reported Medications Acetaminophen/Codeine* (TYLENOL # 3*) 1 Ea Tab, 1 TAB PO Q4HR PRN for MODERATE PAIN (4-6) 06/24/19 Lisinopril (LISINOPRIL) 10 Mg Tablet, 10 MG PO DAILY, #30 TAB 05/15/19 Oxybutynin Chloride (OXYBUTYNIN CHLORIDE ER) 5 Mg Tab.er.24, 1 TAB PO TID 12/31/18 Medications in the ED Ondansetron HCl 4 mg NOW ONCE IV ; Start 12/22/19 at 21:21; Stop 12/22/19 at 21:24; Status DC Hydromorphone HCl 1 mg NOW ONCE IV ; Start 12/22/19 at 21:21; Stop 12/22/19 at 21:24; Status DC GRAHAM GRACE MD Dec 22, 2019 22:01
--- OUTSIDE RECORDS SUMMARY | 2019-12-22 22:06 | XMS REPORT | Continuity of Care Document ---
Author Author [facility] t Organization [facility] Address [address] [place] [address] Phone Unavailable Care Team Providers Care Scales Inspector Name Role Phone ROSSY CANDELARIA DO PCP SHANNAN LUCERO Attphys Unavailable HENDERSON, SOUHEIL Attphys Unavailable HAMPEL, MELINA Attphys Unavailable SCHATTE, EDWARD Attphys Unavailable HENDERSON, SOUHEIL Admphys Unavailable Payers Payer Name Policy Type Policy Number Effective Date Expiration Date Ethan Morris o [id number] 2015 00:00:00 [facility] Problems This patient has no known problems. Allergies, Adverse Reactions, Alerts Allergy Name Allergy Type Status Severity Reaction(s) Onset Date Inacti ve Date Treating Clinician Comments Source Sulfa (Sulfonamide Antibiotics) Allergy to Substance Active hives, itching, nausea, and vomiting 2019-06-24 00:00:00 [facility] Morphine Allergy to Substance Active hives, itching, nausea, and vomiting 2019-06-24 00:00:00 [facility] Tramadol Allergy to Substance Active 2019-06-24 00:00:00 [facility] Ketorolac Allergy to Substance Active hives, itching, nausea, and vomiting 2019-06-24 00:00:00 [facility] tramadol DA Active U 2019-04-07 00:00:00 [facility] ketorolac DA Active U 2019-04-07 00:00:00 [facility] Sulfa (Sulfonamide Antibiotics) DA Active SV 2014-09-15 00 :00:00 [facility] morphine DA Active U 2014-09-14 00:00:00 [facility] CODIINE DA Active U 2014-09-14 00:00:00 [facility] Medications Ordered Medication Name Filled Medication Name Start Date Stop Da te Current Medication? Ordering Clinician Indication Dosage Frequency Signature (SIG) Comments Components Source Acetaminophen/Codeine Phosphate (Tylenol # 3*) 1 Ea Ta b Acetaminophen/Codeine Phosphate (Tylenol # 3*) 1 Ea Tab Yes 1 Every 4 Hours as needed for Moderate Pain (4-6) [facility] Lisinopril 10 Mg Tablet Lisinopril 10 Mg Tablet Yes 10 Daily [facility] Oxybutynin Chloride (Oxybutynin Chloride Er) 5 Mg Tab. er.24 Oxybutynin Chloride (Oxybutynin Chloride Er) 5 Mg Tab.er.24 Yes 1 Three Times A Day [facility] Cefuroxime Axetil (Cefuroxime) 500 Mg Tablet, 500 Mg O ral Cefuroxime Axetil (Cefuroxime) 500 Mg Tablet, 500 Mg Oral 2019-06-28 00:00:00 No 500 Twice A Day [facility] Fluconazole 100 Mg Tablet, 100 Mg Oral Fluconazole 100 Mg Tablet , 100 Mg Oral 2019-06-28 00:00:00 No 100 Daily [facility] Procedures Procedure Date / Time Performed Performing Clinician [facility] e CT of abdomen and pelvis without contrast 2019-07-08 00:00:00 SHANNAN LUCIO [facility] CT of abdomen and pelvis without contrast 2019-06-24 00:00:00 TRAY OH [facility] FRAGMENTING OF KIDNEY STONE 2019-05-16 00:00:00 MELINA GLEASON [facility] CT of abdomen and pelvis without contrast 2019-04-23 00:00:00 WILLOW HURST [facility] FRAGMENTING OF KIDNEY STONE 2019-01-10 00:00:00 [facility] CYSTOSCOPY & URETER CATHETER 2019-01-10 00:00:00 [facility] Encounters Start Date/Time End Date/Time Encounter Type Admission Type [facility] Care Department Encounter ID Source 2019-07-08 01:58:00 2019-07-08 07:12:00 Departed Emergency Room 1 SHANNAN LUCERO [facility] [id number] [facility] 2019-06-25 11:22:00 2019-06-28 14:16:00 Discharged Inpatient 1 JACEK HENDERSON [facility] [id number] [facility] 2019-06-20 09:47:00 2019-06-20 09:47:00 Registered Surgical Day Care [facility] [id number] [facility] 2019-05-16 05:18:00 2019-05-16 05:18:00 Registered Surgical Day Car e 3 HITESH [facility] [id number] [facility] 2019-04-23 13:13:00 2019-04-23 13:13:00 Registered Clinic 3 WILLOW PIMENTEL [facility] [id number] [facility] 2019-01-10 09:05:00 2019-01-10 09:05:00 Registered Surgical Day Car e 3 VARUN [facility] [id number] [facility] Results Test Description Test Time Test Comments Results Result Comments Source Sodium Level 2019-07-08 05:07:00 Test Item Sodium Level (test code = 2951-2) 139 136-145 [facility] CenterPotassium Rravj1141-95-14 05:07:00* Test Item Value Reference Range Interpretation Comments Potassium Level (test code = 2823-3) 4.2 3.5-5.1 [facility] CenterChloride Syrfr0148-77-49 05:07:00* Test Item Value Reference Range Interpretation Comments Chloride Level (test code = 2075-0) 105 98-107 [facility] CenterCarbon Dioxide Qcjzj8090-59-04 05:07:00* Test Item Value Reference Range Interpretation Comments Carbon Dioxide Level (test code = 2028-9) 24 22-29 [facility] CenterAnion Ntj7914-25-26 05:07:00* Test Item Value Reference Range Interpretation Comments Anion Gap (test code = 16473-4) 14.2 8-16 [facility] CenterBlood Urea Udeueplm5555-94-63 05:07:00* Test Item Value Reference Range Interpretation Comments Blood Urea Nitrogen (test code = 3094-0) 22 7-26 [facility] CenterCreatinine2020-03-03 05:07:00* Test Item Value Reference Range Interpretation Comments Creatinine (test code = 2160-0) 0.87 0.57-1.11 [facility] CenterBUN/Creatinine Wwxtt5800-93-01 05:07:00* Test Item Value Reference Range Interpretation Comments BUN/Creatinine Ratio (test code = 3097-3) 25 6-25 [facility] CenterEstimat Glomerular Filtration Rate 2019-07-08 05:07:00* Test Item Value Reference Range Interpretation Comments Estimat Glomerular Filtration Rate (test code = 007553671) > 60 >60 Ranges were taken from the National Kidney Disease Education Program and the [facility] Kidney Foundation literature.Reference ranges:60 or greater: Byrnfd41-56 ( for 3 consecutive months): Chronic kidney disease 15 or less: Kidney failureFort [facility] Medical CenterGlucose Iklaj3649-82-57 05:07:00* Test Item Value Reference Range Interpretation Comments Glucose Level (test code = DTI1835) 114 74-118 [facility] CenterCalcium Vkhkr5941-89-06 05:07:00* Test Item Value Reference Range Interpretation Comments Calcium Level (test code = 70848-9) 9.6 8.4-10.2 [facility] CenterTotal Ptvwoxsuj3874-91-57 05:07:00* Test Item Value Reference Range Interpretation Comments Total Bilirubin (test code = 1975-2) 0.3 0.2-1.2 [facility] CenterAspartate Amino Transf (AST/SGOT) 2019-07-08 05:07:00* Test Item Value Reference Range Interpretation Comments Aspartate Amino Transf (AST/SGOT) (test code = Aspartate Amino Transf (AST/SGOT)) 14 5-34 [facility] CenterAlanine Aminotransferase (ALT/SGPT) 2019-07-08 05:07:00* Test Item Value Reference Range Interpretation Comments Alanine Aminotransferase (ALT/SGPT) (test code = 1742-6) 14 0-55 [facility] CenterTotal Kyzixbs9462-38-54 05:07:00* Test Item Value Reference Range Interpretation Comments Total Protein (test code = 2885-2) 7.7 6.5-8.1 [facility] CenterAlbumin2020-03-03 05:07:00* Test Item Value Reference Range Interpretation Comments Albumin (test code = 1751-7) 4.0 3.5-5.0 [facility] CenterGlobulin2020-03-03 05:07:00* Test Item Value Reference Range Interpretation Comments Globulin (test code = 88924-8) 3.7 2.3-3.5 H [facility] CenterAlbumin/Globulin Hadqo0167-73-10 05:07:00 * Test Item Value Reference Range Interpretation Comments Albumin/Globulin Ratio (test code = 1759-0) 1.1 0.8-2.0 [facility] CenterAlkaline Ncpswoxtnij3313-64-68 05:07:00* Test Item Value Reference Range Interpretation Comments Alkaline Phosphatase (test code = 6768-6) 109 40-150 [facility] CenterUrine Sgjw4830-34-56 05:02:00* Test Item Value Reference Range Interpretation Comments Urine Test (test code = 2106-3) NEGATIVE NEGATIVE [facility] CenterWhite Blood Pjlqh8334-26-31 04:53:00* Test Item Value Reference Range Interpretation Comments White Blood Count (test code = 6690-2) 7.70 4.8-10.8 [facility] CenterRed Blood Ozsvw0699-22-52 04:53:00* Test Item Value Reference Range Interpretation Comments Red Blood Count (test code = 789-8) 4.28 3.6-5.1 [facility] CenterHemoglobin2020-03-03 04:53:00* Test Item Value Reference Range Interpretation Comments Hemoglobin (test code = 68903-8) 13.0 12.0-16.0 [facility] CenterHematocrit2020-03-03 04:53:00* Test Item Value Reference Range Interpretation Comments Hematocrit (test code = 4544-3) 38.9 34.2-44.1 [facility] CenterMean Corpuscular Gepuzx1579-11-28 04:53:00* Test Item Value Reference Range Interpretation Comments Mean Corpuscular Volume (test code = 787-2) 90.9 81-99 [facility] CenterMean Corpuscular Ojvkeivmkm8869-85-87 04:53:00* Test Item Value Reference Range Interpretation Comments Mean Corpuscular Hemoglobin (test code = 785-6) 30.4 28-32 [facility] CenterMean Corpuscular Hemoglobin Concent 2019-07-08 04:53:00* Test Item Value Reference Range Interpretation Comments Mean Corpuscular Hemoglobin Concent (test code = 786-4) 33.4 31-35 [facility] CenterRed Cell Distribution Mbuai8649-03-21 04:53:00* Test Item Value Reference Range Interpretation Comments Red Cell Distribution Width (test code = 70284-1) 12.0 11.7 -14.4 [facility] CenterPlatelet Jdfds7973-38-12 04:53:00* Test Item Value Reference Range Interpretation Comments Platelet Count (test code = 777-3) 238 140-360 [facility] CenterNeutrophils (%) (Auto)2019-07-08 04:53:00 * Test Item Value Reference Range Interpretation Comments Neutrophils (%) (Auto) (test code = 91768-5) 65.6 38.7-80.0 [facility] CenterLymphocytes (%) (Auto)2019-07-08 04:53:00 * Test Item Value Reference Range Interpretation Comments Lymphocytes (%) (Auto) (test code = 736-9) 23.6 18.0-39.1 [facility] CenterMonocytes (%) (Auto)2019-07-08 04:53:00* Test Item Value Reference Range Interpretation Comments Monocytes (%) (Auto) (test code = 5905-5) 6.6 4.4-11.3 [facility] CenterEosinophils (%) (Auto)2019-07-08 04:53:00 * Test Item Value Reference Range Interpretation Comments Eosinophils (%) (Auto) (test code = 713-8) 3.0 0.0-6.0 [facility] CenterBasophils (%) (Auto)2019-07-08 04:53:00* Test Item Value Reference Range Interpretation Comments Basophils (%) (Auto) (test code = 706-2) 0.9 0.0-1.0 [facility] CenterIM GRANULOCYTES %2019-07-08 04:53:00* Test Item Value Reference Range Interpretation Comments IM GRANULOCYTES % (test code = IM GRANULOCYTES %) 0.3 0.0- 1.0 [facility] CenterNeutrophils # (Auto)2019-07-08 04:53:00* Test Item Value Reference Range Interpretation Comments Neutrophils # (Auto) (test code = 751-8) 5.1 2.1-6.9 [facility] CenterLymphocytes # (Auto)2019-07-08 04:53:00* Test Item Value Reference Range Interpretation Comments Lymphocytes # (Auto) (test code = 56620-2) 1.8 1.0-3.2 [facility] CenterMonocytes # (Auto)2019-07-08 04:53:00* Test Item Value Reference Range Interpretation Comments Monocytes # (Auto) (test code = 742-7) 0.5 0.2-0.8 [facility] CenterEosinophils # (Auto)2019-07-08 04:53:00* Test Item Value Reference Range Interpretation Comments Eosinophils # (Auto) (test code = 711-2) 0.2 0.0-0.4 [facility] CenterBasophils # (Auto)2019-07-08 04:53:00* Test Item Value Reference Range Interpretation Comments Basophils # (Auto) (test code = 704-7) 0.1 0.0-0.1 [facility] CenterAbsolute Immature Granulocyte (auto 2019-07-08 04:53:00* Test Item Value Reference Range Interpretation Comments Absolute Immature Granulocyte (auto (dania t code = Absolute Immature Granulocyte (auto) 0.02 0-0.1 [facility] CenterCT ABDOMEN/PELVIS DY3535-44-24 04:41:00 [facility] [address] [address] Patient Name: ANNA MAYO MR #: [id number] : 04/1975 Age/Sex: 44/F Req #: [id number] Adm Physician: Ordered by: SHANNAN LUCERO DO Report #: [id number] Location: ER Room/Bed: Procedure: [id number] 0004 CT/CT ABDOMEN/PELVIS WO Exam Date: 07/08/19 Nolan agarwal Time: 0355 REPORT STATUS: Signed EXAM: CT Abdomen and Pelvis WITHOUT contrast INDICATION: Right flank/back. abdominal pain, nausea vomiting COMPARISON: Abdominal CT 06/24/2019, TECHNIQUE: Abdomen and pelvis were scanned utilizing a multidetector helical scanner from the lung base to the pubic symphysis without administrati on of IV contrast. Absence of intravenous contrast decreases sensitivity for d etection of focal lesions and vascular pathology. Coronal and sagittal reforma tions were obtained. Routine protocol was performed. IV CONTRAST: None ORAL CONTRAST: None COMPLICATIONS: None RADIATION DOSE: Total DLP: 497 mGy*cm Estimated effective dose: (DLP x 0.015 x size factor) mSv CTDIvol has been reviewed. It is below the limits set by the Radiation Protocol Committee (RPC). Dose modulation, iterative reconstruction, and/or weight based adjustment of the mA/kV was utilized to re duce the radiation dose to as low as reasonably achievable. FINDINGS: LINES and TUBES: None. LOWER THORAX: Unremarkable HEPATOBILIARY: No focal hepatic lesions. No biliary ductal dilation. GALLBLADDER: No radio-opaque stones or sludge. No wall thickening. SPLEEN: No splenomegaly . PANCREAS: No focal masses or ductal dilatation. ADRENALS: No adre nal nodules KIDNEYS/URETERS: No hydronephrosis. No cystic or solid mas s lesions. No stones. Post surgical changes of the distal right ureter. Subtl e focal scarring and calcification in the left renal superior pole. Persistent mild prominence of the right renal pelvis. GI TRACT: No abnormal distent ion, wall thickening, or evidence of bowel obstruction. A few colonic diverti culi. Appendix is normal. PELVIC ORGANS/BLADDER: Decreased size of the cys tic and solid mass in the right adnexa compared to 06/24/2018, now measures 3.8 x 3 cm, was 4.4 x 1 cm. Hysterectomy. Urinary bladder under distended. Subtle persistent pelvic fat stranding. LYMPH NODES: No lymphadenopathy. VESSELS: Unremarkable. PERITONEUM / RETROPERITONEUM: No free air or fluid. BONES: Unremarkable. SOFT TISSUES: There is a fat containing para-umbi lical hernia. IMPRESSION: Slight decreased size of the 3. 8 cm cystic and solid right adnexal mass, which is likely a normal ovary with follicles. A nonemergent pelvic ultrasound can further evaluate. Otherwise no acute abnormality in the abdomen or pelvis on this noncontrast CT. Signed by: Catalino Martinez DO on 07/08/2019 4:56 AM Dictated By: CATALINO MARTINEZ DO 5 Transcribed By: MAGUI on 07/08/19455 COPY TO: SHANNAN LUCERO DO Urine [id number] 03:50:00* Test Item Value Reference Range Interpretation Comments Urine WBC (test code = 5821-4) >50 0-5 H [facility] CenterUrine JPC5715-02-16 03:50:00* Test Item Value Reference Range Interpretation Comments Urine RBC (test code = 85427-6) 11-20 0-5 H [facility] CenterUrine Zamhsbwb2591-49-56 03:50:00* Test Item Value Reference Range Interpretation Comments Urine Bacteria (test code = 77487-0) FEW NONE [facility] CenterUrine Epithelial Xxmqg6696-42-17 03:50:00 * Test Item Value Reference Range Interpretation Comments Urine Epithelial Cells (test code = 75051-1) FEW NONE [facility] CenterUrine Transitional Epithelial Cells 2019-07-08 03:50:00* Test Item Value Reference Range Interpretation Comments Urine Transitional Epithelial Cells (test code = 8249-5) FEW NONE H [facility] CenterUrine Renal Epithelial Oecvz7857-68-64 03:50:00* Test Item Value Reference Range Interpretation Comments Urine Renal Epithelial Cells (test code = 23799-4) FEW NON E H [facility] CenterUrine Pcaop7404-46-28 03:42:00* Test Item Value Reference Range Interpretation Comments Urine Color (test code = 5778-6) YELLOW YELLOW [facility] CenterUrine Fnvfklz9715-40-34 03:42:00* Test Item Value Reference Range Interpretation Comments Urine Clarity (test code = 01826-9) CLOUDY CLEAR H [facility] CenterUrine Specific Asaxrtc4197-79-69 03:42:00 * Test Item Value Reference Range Interpretation Comments Urine Specific [place] (test code = 5811-5) 1.025 1.010-1.02 5 [facility] CenterUrine lH6464-94-66 03:42:00* Test Item Value Reference Range Interpretation Comments Urine pH (test code = 20970-7) 6.5 5-7 [facility] CenterU[facility] Leukocyte Wqfwanef3187-18-65 03:42:00* Test Item Value Reference Range Interpretation Comments Urine Leukocyte Esterase (test code = 5799-2) 2+ NEGATIVE H [facility] CenterUrine Sxnokwr7075-86-76 03:42:00* Test Item Value Reference Range Interpretation Comments Urine Nitrite (test code = 58380-5) NEGATIVE NEGATIVE [facility] CenterUrine Eailvii2997-44-05 03:42:00* Test Item Value Reference Range Interpretation Comments Urine Protein (test code = 5804-0) TRACE NEGATIVE H [facility] CenterUrine Glucose (UA)2019-07-08 03:42:00* Test Item Value Reference Range Interpretation Comments Urine Glucose (UA) (test code = 2349-9) NEGATIVE NEGATIVE [facility] CenterUrine Gjcbujj6341-32-63 03:42:00* Test Item Value Reference Range Interpretation Comments Urine Ketones (test code = 15038-9) NEGATIVE NEGATIVE [facility] Rmcjuzdjgbcs6423-54-44 03:42:00* Test Item Value Reference Range Interpretation Comments Urine Urobilinogen (test code = 57699-9) 0.2 0.2-1 [facility] Cyljxivfy2502-96-92 03:42:00* Test Item Value Reference Range Interpretation Comments Urine Bilirubin (test code = 1978-6) 1+ NEGATIVE H [facility] CenterUrine Muard0658-05-54 03:42:00* Test Item Value Reference Range Interpretation Comments Urine Blood (test code = 21843-2) 2+ NEGATIVE H [facility] CenterUrine Opiates Inoqsk1971-85-12 03:38:00* Test Item Value Reference Range Interpretation Comments Urine Opiates Screen (test code = 73477-5) NEGATIVE NEGATIVE ALL TESTS PERFORMED MANUALLY ON [place] TOX/SEE TESTFort [facility] Regional Medical CenterUrine Barbiturates Sccrrf9102-56-95 03:38:00* Test Item Value Reference Range Interpretation Comments Urine Barbiturates Screen (test code = 582569427) NEGATIVE NEGA TIVE [facility] CenterUrine Phencyclidine Mtnodb2735-16-97 03:38:00* Test Item Value Reference Range Interpretation Comments Urine Phencyclidine Screen (test code = 19787-5) NEGATIVE NEGAT W[place] [facility] CenterUrine Amphetamines Tqpqrr5708-28-57 03:38:00* Test Item Value Reference Range Interpretation Comments Urine Amphetamines Screen (test code = 54739-9) NEGATIVE NEGATI VE [facility] CenterU[facility] Methamphetamines Xhllmq8441-34-32 03:38:00* Test Item Value Reference Range Interpretation Comments Urine Methamphetamines Screen (test code = Urine Metha mphetamines Screen) NEGATIVE NEGATIVE [facility] CenterUrine Benzodiazepines Ginrbq9639-84-70 03:38:00* Test Item Value Reference Range Interpretation Comments Urine Benzodiazepines Screen (test code = 89183-4) NEGATIVE NEG ATIVE [facility] CenterU[facility] Cocaine Atwdkp6040-59-85 03:38:00* Test Item Value Reference Range Interpretation Comments Urine Cocaine Screen (test code = 3398-5) NEGATIVE NEGATIVE [facility] CenterUrine Cannabinoids Mgednr9700-12-46 03:38:00* Test Item Value Reference Range Interpretation Comments Urine Cannabinoids Screen (test code = 31353-3) NEGATIVE NEGATI VE THESE RESULTS ARE FOR MEDICAL TREATMENT ONLYTHIS REPORT CONTAINS UNCONFIR MED SCREENING RESULTS*POSITIVE RESULTS WILL BE CONFIRMED BY REFERENCE LAB UPON R EQUEST CUT-OFFDRUG CLASS CONCENTRATION ng/mLAmphetamines 1000Methamphetamines 1000Cocaine 300Opiate 300Phencyc lidine 25Cannabinoid 50Barbiturates 300Benzodiazepine 300Methadone 300[facility] CenterU[facility] Methadone Semdth4826-74-75 03:38:00* Test Item Value Reference Range Interpretation Comments Urine Methadone Screen (test code = 76264-4) NEGATIVE NEGATIVE THESE RESULTS ARE FOR MEDICAL TREATMENT ONLYTHIS REPORT CONTAINS UNCONFIR MED SCREENING RESULTS*POSITIVE RESULTS WILL BE CONFIRMED BY REFERENCE LAB UPON R EQUEST CUT-OFFDRUG CLASS CONCENTRATION ng/mLAmphetamines 1000Methamphetamines 1000Cocaine Metabolite 300Opiate 300Phencyc lidine 25Cannabinoid 50Barbiturates 300Benzodiazepine 300Methadone 300[facility] CenterBlood Ngtyhdv5266-88-59 16:02:00* Test Item Value Reference Range Interpretation Comments Blood Culture (test code = 13520288) NO GROWTH AFTER 5 DAYS, FINAL REPORT [facility] CenterBlood Fmxyxmj1038-18-63 16:02:00* Test Item Value Reference Range Interpretation Comments Blood Culture (test code = 21542568) NO GROWTH AFTER 72 HOURS [facility] CenterUrine Cpqmmul6207-92-27 10:01:00* Test Item Value Reference Range Interpretation Comments Urine Culture (test code = 630-4) No Result Data Provided [facility] CenterUrine Eikycbd5992-51-57 10:01:00* Test Item Value Reference Range Interpretation Comments Urine Culture (test code = 630-4) No Result Data Provided [facility] CenterCreatine Kinase [id number] 07:31:00* Test Item Value Reference Range Interpretation Comments Creatine Kinase MB (test code = 74151-3) 0.30 0-5.0 [facility] CenterTroponin [id number] 07:31:00* Test Item Value Reference Range Interpretation Comments Troponin I (test code = VUJ0190) < 0.001 0-0.300 [facility] CenterCreatine Kinase GP2539-55-00 07:31:00* Test Item Value Reference Range Interpretation Comments Creatine Kinase MB (test code = 06964-8) 0.30 0-5.0 [facility] CenterTroponin Y0749-15-22 07:31:00* Test Item Value Reference Range Interpretation Comments Troponin I (test code = MCX5568) < 0.001 0-0.300 [facility] Ztqia5347-96-20 07:15:00* Test Item Value Reference Range Interpretation Comments Sodium Level (test code = 2951-2) 140 136-145 [facility] CenterPotassium Bcikt6969-84-87 07:15:00* Test Item Value Reference Range Interpretation Comments Potassium Level (test code = 2823-3) 4.5 3.5-5.1 [facility] CenterChloride Fzoud6534-36-69 07:15:00* Test Item Value Reference Range Interpretation Comments Chloride Level (test code = 2075-0) 112 98-107 H [facility] CenterCarbon Dioxide Kltxo3039-83-56 07:15:00* Test Item Value Reference Range Interpretation Comments Carbon Dioxide Level (test code = 2028-9) 23 22-29 [facility] CenterAnion Dao4429-07-66 07:15:00* Test Item Value Reference Range Interpretation Comments Anion Gap (test code = 38274-9) 9.5 8-16 [facility] CenterBlood Urea Pawmafzo6717-98-50 07:15:00* Test Item Value Reference Range Interpretation Comments Blood Urea Nitrogen (test code = 3094-0) 15 7-26 [facility] CenterCreatinine2020-02-19 07:15:00* Test Item Value Reference Range Interpretation Comments Creatinine (test code = 2160-0) 0.70 0.57-1.11 [facility] CenterBUN/Creatinine Ueeuv0157-62-29 07:15:00* Test Item Value Reference Range Interpretation Comments BUN/Creatinine Ratio (test code = 3097-3) 21 6-25 [facility] CenterEstimat Glomerular Filtration Rate 2019-06-25 07:15:00* Test Item Value Reference Range Interpretation Comments Estimat Glomerular Filtration Rate (test code = 958759903) > 60 >60 Ranges were taken from the National Kidney Disease Education Program and the [facility] Kid[facility] Foundation literature.Reference ranges:60 or greater: Dkwwfh24-98 ( for 3 consecutive months): Chronic kidney disease 15 or less: Kidney failureFort [facility] CenterGlucose Qgung3270-38-04 07:15:00* Test Item Value Reference Range Interpretation Comments Glucose Level (test code = XCY3243) 100 74-118 [facility] CenterCalcium Qqisf1665-19-92 07:15:00* Test Item Value Reference Range Interpretation Comments Calcium Level (test code = 88396-5) 8.5 8.4-10.2 [facility] CenterTotal Knafbuvag7787-61-04 07:15:00* Test Item Value Reference Range Interpretation Comments Total Bilirubin (test code = 1975-2) 0.3 0.2-1.2 [facility] CenterAspartate Amino Transf (AST/SGOT) 2019-06-25 07:15:00* Test Item Value Reference Range Interpretation Comments Aspartate Amino Transf (AST/SGOT) (test code = Aspartate Amino Transf (AST/SGOT)) 10 5-34 [facility] CenterAlanine Aminotransferase (ALT/SGPT) 2019-06-25 07:15:00* Test Item Value Reference Range Interpretation Comments Alanine Aminotransferase (ALT/SGPT) (test code = 1742-6) 10 0-55 [facility] CenterTotal Oeehtxe0508-12-86 07:15:00* Test Item Value Reference Range Interpretation Comments Total Protein (test code = 2885-2) 5.3 6.5-8.1 L [facility] CenterAlbumin2020-02-19 07:15:00* Test Item Value Reference Range Interpretation Comments Albumin (test code = 1751-7) 2.8 3.5-5.0 L [facility] CenterGlobulin2020-02-19 07:15:00* Test Item Value Reference Range Interpretation Comments Globulin (test code = 10137-1) 2.5 2.3-3.5 [facility] CenterAlbumin/Globulin Itgyg2040-22-56 07:15:00 * Test Item Value Reference Range Interpretation Comments Albumin/Globulin Ratio (test code = 1759-0) 1.1 0.8-2.0 [facility] CenterAlkaline Rhrnzgllzho0406-16-46 07:15:00* Test Item Value Reference Range Interpretation Comments Alkaline Phosphatase (test code = 6768-6) 94 40-150 [facility] CenterCreatine Dsfbrj5998-09-38 07:15:00* Test Item Value Reference Range Interpretation Comments Creatine Kinase (test code = 2157-6) 16 29-168 L [facility] CenterCreatine Clxvek0112-69-36 07:15:00* Test Item Value Reference Range Interpretation Comments Creatine Kinase (test code = 2157-6) 16 29-168 L [facility] CenterWhite Blood Feioh2984-72-49 06:38:00* Test Item Value Reference Range Interpretation Comments White Blood Count (test code = 6690-2) 7.80 4.8-10.8 [facility] CenterRed Blood Xlkgx0237-12-20 06:38:00* Test Item Value Reference Range Interpretation Comments Red Blood Count (test code = 789-8) 3.69 3.6-5.1 [facility] CenterHemoglobin2020-02-19 06:38:00* Test Item Value Reference Range Interpretation Comments Hemoglobin (test code = 08418-7) 11.3 12.0-16.0 L [facility] CenterHematocrit2020-02-19 06:38:00* Test Item Value Reference Range Interpretation Comments Hematocrit (test code = 4544-3) 34.4 34.2-44.1 [facility] CenterMean Corpuscular Lqjasu9733-38-08 06:38:00* Test Item Value Reference Range Interpretation Comments Mean Corpuscular Volume (test code = 787-2) 93.2 81-99 [facility] CenterMean Corpuscular Sxtrrebldh1376-43-73 06:38:00* Test Item Value Reference Range Interpretation Comments Mean Corpuscular Hemoglobin (test code = 785-6) 30.6 28-32 [facility] CenterMean Corpuscular Hemoglobin Concent 2019-06-25 06:38:00* Test Item Value Reference Range Interpretation Comments Mean Corpuscular Hemoglobin Concent (test code = 786-4) 32.8 31-35 [facility] CenterRed Cell Distribution Lxvdp7501-70-64 06:38:00* Test Item Value Reference Range Interpretation Comments Red Cell Distribution Width (test code = 97679-5) 11.9 11.7 -14.4 [facility] CenterPlatelet Luosy2647-88-30 06:38:00* Test Item Value Reference Range Interpretation Comments Platelet Count (test code = 777-3) 204 140-360 [facility] CenterNeutrophils (%) (Auto)2019-06-25 06:38:00 * Test Item Value Reference Range Interpretation Comments Neutrophils (%) (Auto) (test code = 59394-1) 62.2 38.7-80.0 [facility] CenterLymphocytes (%) (Auto)2019-06-25 06:38:00 * Test Item Value Reference Range Interpretation Comments Lymphocytes (%) (Auto) (test code = 736-9) 22.8 18.0-39.1 [facility] CenterMonocytes (%) (Auto)2019-06-25 06:38:00* Test Item Value Reference Range Interpretation Comments Monocytes (%) (Auto) (test code = 5905-5) 12.3 4.4-11.3 H [facility] CenterEosinophils (%) (Auto)2019-06-25 06:38:00 * Test Item Value Reference Range Interpretation Comments Eosinophils (%) (Auto) (test code = 713-8) 1.8 0.0-6.0 [facility] CenterBasophils (%) (Auto)2019-06-25 06:38:00* Test Item Value Reference Range Interpretation Comments Basophils (%) (Auto) (test code = 706-2) 0.5 0.0-1.0 [facility] CenterIM GRANULOCYTES %2019-06-25 06:38:00* Test Item Value Reference Range Interpretation Comments IM GRANULOCYTES % (test code = IM GRANULOCYTES %) 0.4 0.0- 1.0 [facility] CenterNeutrophils # (Auto)2019-06-25 06:38:00* Test Item Value Reference Range Interpretation Comments Neutrophils # (Auto) (test code = 751-8) 4.9 2.1-6.9 [facility] CenterLymphocytes # (Auto)2019-06-25 06:38:00* Test Item Value Reference Range Interpretation Comments Lymphocytes # (Auto) (test code = 69700-0) 1.8 1.0-3.2 [facility] CenterMonocytes # (Auto)2019-06-25 06:38:00* Test Item Value Reference Range Interpretation Comments Monocytes # (Auto) (test code = 742-7) 1.0 0.2-0.8 H [facility] CenterEosinophils # (Auto)2019-06-25 06:38:00* Test Item Value Reference Range Interpretation Comments Eosinophils # (Auto) (test code = 711-2) 0.1 0.0-0.4 [facility] CenterBasophils # (Auto)2019-06-25 06:38:00* Test Item Value Reference Range Interpretation Comments Basophils # (Auto) (test code = 704-7) 0.0 0.0-0.1 [facility] CenterAbsolute Immature Granulocyte (auto 2019-06-25 06:38:00* Test Item Value Reference Range Interpretation Comments Absolute Immature Granulocyte (auto (dania t code = Absolute Immature Granulocyte (auto) 0.03 0-0.1 [facility] CenterLactic Acid Swfdz5188-36-27 19:04:00* Test Item Value Reference Range Interpretation Comments Lactic Acid Level (test code = Lactic Acid Level) 0.7 0.5- 2.0 [facility] CenterLactic Acid Husww5920-13-93 19:04:00* Test Item Value Reference Range Interpretation Comments Lactic Acid Level (test code = Lactic Acid Level) 0.7 0.5- 2.0 [facility] CenterUrine TVF4477-91-19 16:54:00* Test Item Value Reference Range Interpretation Comments Urine WBC (test code = 5821-4) >50 0-5 H [facility] CenterUrine PAR5239-33-79 16:54:00* Test Item Value Reference Range Interpretation Comments Urine RBC (test code = 37008-4) 11-20 0-5 H [facility] CenterUrine Swxunohw7754-01-14 16:54:00* Test Item Value Reference Range Interpretation Comments Urine Bacteria (test code = 40204-4) MODERATE NONE H [facility] CenterUrine Epithelial Hpbue0376-50-20 16:54:00 * Test Item Value Reference Range Interpretation Comments Urine Epithelial Cells (test code = 47118-5) MODERATE NONE [facility] CenterCT ABDOMEN/PELVIS PY4010-45-22 16:53:00 [place] [address] Patient Name: ANNA MAYO MR #: [id number] : 04/1975 Age/Sex: 44/F Req #: [id number] Adm Physician: JACEK HENDERSON MD Ordered by: TRAY SHAH DO Report #: [id number] Location: [facility] Room/Bed: [place] [address] Procedure: 0218-[address]/CT ABDOMEN/PELVIS WO Exam Date: 06/24/19 Exam Time: 1615 REPORT STATUS: Signed EXAM: CT Abdomen and Pelvis WITHOUT intravenous contrast INDICATION: Rig ht flank pain COMPARISON: KUB of 05/15/2019, abdomen and pelvis CT of 019 TECHNIQUE: Abdomen and pelvis were scanned utilizing a multidetector he lical scanner from the lung base to the pubic symphysis without administration of IV contrast. Coronal and sagittal reformations were obtained. IV CONTRAST: None ORAL CONTRAST: Water COMPLICATIONS: None RADIATION DOSE: Total DLP: 418.1 mGy*cm Dose modulation, iterative rec onstruction, and/or weight based adjustment of the mA/kV was utilized to reduc e the radiation dose to as low as reasonably achievable. FINDINGS: LOW ER THORAX: Normal. HEPATOBILIARY: No focal lesion. Status post cholecystect jl. SPLEEN: No splenomegaly. PANCREAS: No focal masses or ductal dila tation. ADRENALS: No adrenal nodules. KIDNEYS/URETERS: Status post interv al removal of right double-J internal nephroureteral stent. Moderate right hyd roureteronephrosis with a small focus of air in the right proximal ureter like ly related to recent instrumentation. There are numerous metallic clips along the course of the right distal ureter and in the lower pelvis. 2 mm right uppe r pole renal calculus. Scattered 4 to 5 mm left upper pole and left lower pole nonobstructive renal calculi. PELVIC ORGANS/BLADDER: Small amount of air in the bladder, likely related to recent instrumentation. PERITONEUM / RET ROPERITONEUM: 4.3 x 4.1 x 4.6 cm right pelvic structure directly anterior to t he bladder may represent continued evolution of previously seen complex pelvic fluid. LYMPH NODES: No lymphadenopathy. VESSELS: Unremarkable. GI TRAC T: Mild diverticulosis. No CT evidence of diverticulitis. No abnormal bowel th ickening. No bowel obstruction. Normal appendix. BONES AND SOFT TISSUES: No acute osseous injury. No suspicious lytic or blastic lesions. IMPRESSION: Status post removal of right internal nephroureteral stent. Moderate right hydroureteronephrosis and findings of recent retrograde instrumentation. 4.3 x 4.1 x 4.6 cm right pelvic structure directly anterior to the bladder may represent continued evolution of previously seen complex pelvic fluid. Norma nued follow-up to resolution is recommended to exclude underlying mass lesion. Signed by: Lizet Lu MD on 06/24/2019 5:07 PM Dictated By: LIZET LU MD 06 Transcribed By: MAGUI on 06/24/191706 COPY TO: TRAY SHAH DO Urine Color 2019-06-24 16:27:00* Test Item Value Reference Range Interpretation Comments Urine Color (test code = 5778-6) YELLOW YELLOW [facility] CenterUrine Edojdmp9140-20-19 16:27:00* Test Item Value Reference Range Interpretation Comments Urine Clarity (test code = 94496-8) CLOUDY CLEAR H [facility] CenterUrine Specific Gqggaxt6773-28-94 16:27:00 * Test Item Value Reference Range Interpretation Comments Urine Specific [place] (test code = 5811-5) 1.025 1.010-1.02 5 [facility] CenterUrine hG5858-21-73 16:27:00* Test Item Value Reference Range Interpretation Comments Urine pH (test code = 22331-3) 6 5-7 [facility] CenterUrine Leukocyte Mvvgsbvv5711-03-62 16:27:00* Test Item Value Reference Range Interpretation Comments Urine Leukocyte Esterase (test code = 5799-2) 1+ NEGATIVE H [facility] CenterUrine Whazwuy6172-27-14 16:27:00* Test Item Value Reference Range Interpretation Comments Urine Nitrite (test code = 36973-9) NEGATIVE NEGATIVE [facility] CenterUrine Htnamxd2090-63-27 16:27:00* Test Item Value Reference Range Interpretation Comments Urine Protein (test code = 5804-0) 1+ NEGATIVE H [facility] CenterUrine Glucose (UA)2019-06-24 16:27:00* Test Item Value Reference Range Interpretation Comments Urine Glucose (UA) (test code = 2349-9) NEGATIVE NEGATIVE [facility] CenterUrine Yonjbal3947-51-88 16:27:00* Test Item Value Reference Range Interpretation Comments Urine Ketones (test code = 72113-7) NEGATIVE NEGATIVE [facility] CenterUrine Zpmobyevwsle4556-45-82 16:27:00* Test Item Value Reference Range Interpretation Comments Urine Urobilinogen (test code = 74195-9) 0.2 0.2-1 [facility] CenterUrine Lkdmlwzsr6305-97-23 16:27:00* Test Item Value Reference Range Interpretation Comments Urine Bilirubin (test code = 1978-6) NEGATIVE NEGATIVE [facility] Sbxxy9448-84-90 16:27:00* Test Item Value Reference Range Interpretation Comments Urine Blood (test code = 27142-5) 3+ NEGATIVE H [facility] Hdxtiyd4443-57-04 08:52:00* Test Item Value Reference Range Interpretation Comments Urine Culture (test code = 630-4) No Result Data Provided [facility] Cfjjdat1876-01-42 08:52:00* Test Item Value Reference Range Interpretation Comments Urine Culture (test code = 630-4) No Result Data Provided [facility] Mymchpz2135-46-27 08:48:00* Test Item Value Reference Range Interpretation Comments Urine Culture (test code = 630-4) No Result Data Provided [facility] Zgnblih0924-96-43 08:48:00* Test Item Value Reference Range Interpretation Comments Urine Culture (test code = 630-4) No Result Data Provided [facility] CenterABDOMEN-1VIEW (KUB)2019-05-15 13:47:00 [place] [address] Patient Name: ANNA MAYO MR #: [id number] : 1975 Age/Sex: 44/F Req #: [id number] Adm Physician: Ordered by: MELINA GLEASON MD Report #: [id number] Location: OR Room/Bed: Procedure: [id number] DX/ABDOME N-1VIEW (KUB) Exam Date: 05/15/19 Exam Time: 1305 REPORT STATUS: Signed Exam: KUB - 2 views Clinical History: Pre-admit. Comparison: Cystogram 04/23/2019, CT abdomen/pelvis 04/23/2019. Findings: There is a right-sided double-J internal ureteral stent with the proximal pigtail overlying the expected loc ation of the renal pelvis the distal pigtail overlying the bladder. Surgical c lips project over the right hemipelvis. There is a 2 mm calcification overl kylah the right mid pole kidney. Additional left sided nephrolithiasis is franklin r characterized on the prior CT. Nonobstructive bowel gas pattern. No evide nce of free intraperitoneal air. Status post cholecystectomy. No acute osseous abnormality. Impression: Right internal ureteral stent as above. P ossible 2 mm right mid pole renal stone. Left-sided nephrolithiasis is better characterized on the prior CT per Signed by: Dr. Tung Gama MD on 05/15/2019 1:59 PM Dictated By: TUNG GAMA MD 4027 Transcribed By: MAGUI on 05/15/19 1353 COPY TO: MELINA GLEASON MD CYSTOGRAM 3+YOYEV1145-24-25 15:43:00 [place] [address] Patient Name: ANNA MAYO MR #: [id number] : 1975 Age/Sex: 44/F Req #: [id number] Adm Physician: Ordered by: WILLOW PIMENTEL MD Report #: [id number] Location: DX Room/Bed: Procedure: [id number] DX/CY STOGRAM 3+VIEWS Exam Date: 04/23/19 Exam Time: 1410 REPORT STATUS: Signed ADDENDUM #1 ADDENDUM: The referring physician was incorrectly entered into the system as Dr. Pimentel. The correct referring physician is Dr. Melina Gleason. The report will be forwarded to Dr. Gleason by the radiology [facility]. Signed by: Lizet Lu MD on 04/24/2019 10:38 AM ORIGI NAL REPORT Cystogram. History: Right ureteral reimplant ation. Comparison: None available. Discussion: 200 cc of contrast was instilled into the bladder via a previously placed Catalan catheter. Multiple i mages in the frontal and oblique projections were obtained during filling, wit h maximal distention, and postvoid. The patient tolerated the procedure well w ithout evidence of complication. Fluoroscopy time: 0.2 minutes. Fluoroscopy do se: 16.8 mGy (LILIAN) Balance Sheet Analyst views demonstrates multiple surgical clips in the r ight superior pelvis. A right internal ureteral stent is in place. With c ontrast administration, there is good bladder distention which demonstrates no evidence of filling defect . No contrast extravasation or vesicoureteral refl ux is seen. Catalan catheter and balloon are present. IMPRESSION: Daphnie l cystogram. No evidence of leak or reflux. The Catalan catheter was removed at the request of ordering physician at termination of procedure. Signed by: Chapis Mason on 04/23/2019 3:46 PM Dictated By: TRAY MASON MD Electro nically Signed By: TRAY MASON MD on 04/24/19 1038 Transcribed By: MAGUI on 04/23/19 1546 COPY TO: WILLOW PIMENTEL MD CT ABDOMEN/PELVIS WO 2019-04-23 15:31:00 [place] [address] Patient Name: ANNA MAYO MR #: [id number] : 1975 Age/Sex: 44/F Req #: [id number] Adm Physician: Ordered by: WILLOW PIMENTEL MD Report #: [id number] Location: DX Room/Bed: Procedure: [id number] CT/CT ABDOMEN/PELVIS WO Exam Date: 04/23/19 Exam Time: 14 00 REPORT STATUS: Signed ADDENDUM #1 ADDENDUM: The referring physician was incorr ectly entered into the system as Dr. Pimentel. The correct referring physician is Dr. Melina Gleason. The report will be forwarded to Dr. Gleason by the radiology department. Signed by: Lizet Lu MD on 04/24/2019 10:[address] IGINAL REPORT CT of the abdomen and pelvis, without contrast, 1 06/24/2018. History: Renal calculus, recent right ureteral reimplanta tion. Comparison: 04/08/2014. Technique: Multidetector CT scanning of t he abdomen and pelvis was performed from the level of the lung bases to the in ferior pubic rami without contrast. Coronal and sagittal multiplanar reformat ions were obtained. RADIATION DOSE: Total DLP: 723 mGy*cm Dose modulation, iterative reconstruction, and/or weight based adjustment of t he mA/kV was utilized to reduce the radiation dose to as low as reasonably ach ievable. Discussion: Evaluation is limited without IV or oral contrast. LUNG BASES: There is bibasilar linear atelectasis. ABDOMEN: There is mild r ight hydronephrosis and dilatation of the ureter down to the bladder. A double -J internal ureteral stent is present extending from the right renal pelvis in to the bladder. Several subcentimeter stones present within both kidneys, andres uring 2 to 3 mm on the right and 3 to 6 mm on the left. There is no hydronephr osis or hydroureter on the left. Cholecystectomy clips are present. The phani er, biliary tree, spleen, pancreas, and adrenal glands are unremarkable. The abdominal aorta is within normal limits for size. There is no bowel dilatation . The appendix is visualized and is normal. Multiple colonic diverticuli are p resent distally. There is no evidence of adenopathy or free fluid. PEL VIS: A Catalan catheter is present within the bladder as well as a small amount of air multiple surgical clips are present along the right superior aspect of the bladder. Ill-defined fluid collections and fat stranding are present in th e pelvis superior to the bladder. There is no evidence of adenopathy. RASHEED JESSICA AND SOFT TISSUES: Degenerative changes are present throughout the lumbar s pine without evidence of lytic or sclerotic lesion. IMPRESSION: 1. Postoperative changes involving the distal right ureter with mild right hydron ephrosis and dilatation of the right ureter. Right internal ureteral stent is in place. Ill-defined fluid collections in the superior pelvis may be related to prior surgery or urinoma. The patient subsequently had a fluoroscopic cysto gram which demonstrated no evidence of leak from the bladder. 2. Multiple bila teral nonobstructing renal calculi. 3. Sigmoid diverticulosis. Signed by : Tray Mason on 04/23/2019 3:43 PM Dictated By: TRAY MASON MD Elec tronically Signed By: TRAY MASON MD on 04/24/19 1038 Transcribed By: MAGUI on 04/23/19 6132 COPY TO: WILLOW PIMENTEL MD [facility] [id number] 06:09:00* Test Item Value Reference Range Interpretation Comments HEMOGLOBIN (test code = HGB) 8.8 gram/dL 11.5-15.5 L HEMATOCRIT (test code = HCT) 27.1 % 36.0-46.0 L COMPREHENSIVE METABOLIC ECNEB9736-20-52 20:35:00* Test Item Value Reference Range Interpretation Comments SODIUM (test code = NA) 143 mmol/L 136-145 N POTASSIUM (test code = K) 3.5 mmol/L 3.5-5.1 N CHLORIDE (test code = CL) 111.0 mmol/L 98-107 H CARBON DIOXIDE (test code = CO2) 27.0 mmol/L 21-32 N ANION GAP (test code = GAP) 8.5 10-20 L GLUCOSE (test code = GLU) 167 mg/dL 74-106 H BLOOD UREA NITROGEN (test code = BUN) 9 mg/dL 7-18 N GLOMERULAR FILTRATION RATE (test code = GFR) > 60 mL/min >=60 Estimated GFR by using Modified MDRD formula.Chronic kidney disease is defined as either kidney damageor GFR <60 mL/min/1.73 m2 for >3 months. CREATININE (test code = CREAT) 0.80 mg/dL 0.55-1.02 N Note change in reference range due to change in reagent. BUN/CREATININE RATIO (test code = BUN/CREA) 10.6 10-20 N TOTAL PROTEIN (test code = PROT) 5.1 gram/dL 6.4-8.2 L ALBUMIN (test code = ALB) 2.3 g/dL 3.4-5.0 L GLOBULIN (test code = GLOB) 2.8 gram/dL 2.7-4.2 N ALBUMIN/GLOBULIN RATIO (test code = A/G) 0.8 0.75-1.50 N CALCIUM (test code = CA) 8.1 mg/dL 8.5-10.1 L BILIRUBIN TOTAL (test code = BILT) 0.30 mg/dL 0.0-1.0 N SGOT/AST (test code = AST) 21 IUnit/L 15-37 N SGPT/ALT (test code = ALT) 14 IUnit/L 12-78 N ALKALINE PHOSPHATASE TOTAL (test code = ALKP) 52 IUnit/L 45-117 N Note change in reference range due to change in reagent. COMPREHENSIVE METABOLIC [id number] 20:32:00* Test Item Value Reference Range Interpretation Comments SODIUM (test code = NA) 143 mmol/L 136-145 N POTASSIUM (test code = K) 3.5 mmol/L 3.5-5.1 N CHLORIDE (test code = CL) 111.0 mmol/L 98-107 H CARBON DIOXIDE (test code = CO2) mmol/L 21-32 ANION GAP (test code = GAP) 10-20 GLUCOSE (test code = GLU) mg/dL 74-106 BLOOD UREA NITROGEN (test code = BUN) mg/dL 7-18 GLOMERULAR FILTRATION RATE (test code = GFR) mL/min >=60 CREATININE (test code = CREAT) mg/dL 0.55-1.02 BUN/CREATININE RATIO (test code = BUN/CREA) 10-20 TOTAL PROTEIN (test code = PROT) gram/dL 6.4-8.2 ALBUMIN (test code = ALB) g/dL 3.4-5.0 GLOBULIN (test code = GLOB) gram/dL 2.7-4.2 ALBUMIN/GLOBULIN RATIO (test code = A/G) 0.75-1.50 CALCIUM (test code = CA) mg/dL 8.5-10.1 BILIRUBIN TOTAL (test code = BILT) mg/dL 0.0-1.0 SGOT/AST (test code = AST) IUnit/L 15-37 SGPT/ALT (test code = ALT) IUnit/L 12-78 ALKALINE PHOSPHATASE TOTAL (test code = ALKP) IUnit/L 45-117 CBC W/AUTO [id number] 20:17:00* Test Item Value Reference Range Interpretation Comments WHITE BLOOD CELL (test code = WBC) 9.7 K/mm3 4.5-12.5 N RED BLOOD CELL (test code = RBC) 2.80 mill/mm3 3.7-5.2 L HEMOGLOBIN (test code = HGB) 8.7 gram/dL 11.5-15.5 L HEMATOCRIT (test code = HCT) 26.8 % 36.0-46.0 L MEAN CELL VOLUME (test code = MCV) 95.7 fL 80-98 N MEAN CELL HGB (test code = MCH) 31.1 picogram 27.0-33.0 N MEAN CELL HGB CONCETRATION (test code = MCHC) 32.5 gram/dL 33.0-36. 0 L RED CELL DISTRIBUTION WIDTH (test code = RDW) 13.2 % 11.6-16. 2 N RED CELL DISTRIBUTION WIDTH SD (test code = RDW-SD) 46.3 fL 37 .0-51.0 N PLATELET COUNT (test code = PLT) 162 K/mm3 150-450 N MEAN PLATELET VOLUME (test code = MPV) 10.3 fL 6.7-11.0 N NEUTROPHIL % (test code = NT%) 73.8 % 39.0-69.0 H IMMATURE GRANULOCYTE % (test code = IG%) 0.7 % 0.0-5.0 N LYMPHOCYTE % (test code = LY%) 15.4 % 25.0-55.0 L MONOCYTE % (test code = MO%) 8.4 % 0.0-10.0 N EOSINOPHIL % (test code = EO%) 1.4 % 0.0-5.0 N BASOPHIL % (test code = BA%) 0.3 % 0.0-1.0 N NUCLEATED RBC % (test code = NRBC%) 0.0 % 0-0 N NEUTROPHIL # (test code = NT#) 7.15 K/mm3 1.8-7.7 N IMMATURE GRANULOCYTE # (test code = IG#) 0.07 x10 3/uL 0-0.03 H LYMPHOCYTE # (test code = LY#) 1.49 K/mm3 1.0-5.0 N MONOCYTE # (test code = MO#) 0.81 K/mm3 0-0.8 H EOSINOPHIL # (test code = EO#) 0.14 K/mm3 0.0-0.5 N BASOPHIL # (test code = BA#) 0.03 K/mm3 0.0-0.2 N NUCLEATED RBC # (test code = NRBC#) 0.00 K/mm3 0.0-0.1 N [id number] 17:35:00 RUN DATE: 04/11/19 [place] [facility] PAGE 1 RUN TIME: 1736 Specimen Inqui ry RUN USER: INTERFACE PATIENT: ANNA MAYO ACCT #: [id number] LOC: JOSEF U #: [id number] AGE/SX: 43/F ROOM: 2036 RE04/09/19REG DR: Artemio Feliciano MD : 77 BED: A DIS: STATUS: ADM IN TLOC: SPEC #: [id number] RECD: 04/09/19 STATUS: SALINA MCGINNIS #: [id number] SANDY: 04/09/19- SUBM DR: Artemio Feliciano MD ENTERED: 04/09/19 SP TYPE: UTERUS OTHR DR: Lauren Candelaria DO ORDERED: GROSS COPIES TO: Rossy Candelaria DO [address] [place] [address] Artemio Feliciano MD [address] [place], [place] [id number] MARKERS: ABNORMAL TISSUE, UTERUS PROCEDURES: GROSS (04/11/19-160) TISSUES: 1. UTERUS, NOS - CERVIX, BILATERAL T UBES 2. 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 SEROSA, FIBROUS ADHESIONS EVELIO ATERAL FALLOPIAN TUBES, TRANSECTED AND FIMBRIATED FALLOPIAN TUBES WITH NO PATHOLOGIC ALTERATION NEGATIVE FOR MALIGNANCY Left ovarian cyst and ovary, oophorectomy: OVARIAN PARENCHYMA WITH SEROUS CYSTADENOMA AND ORGANIZING LUTEAL CYST FIBROFATTY SURFACE ADHESIONS NEGATIVE F OR MALIGNANCY CONTINUED ON NEXT PAGE ------ ------RUN DATE: 04/11/19 [facility] PAGE 2 RUN TIME: 1736 Specimen Inquiry RUN USER: INTERFACE SPEC #: [id number] PATIENT: ANNA MAYO Guille #[id number] (Continued) FINAL DIAGNOSIS (Continued) RRB/lay A [id number] MACROSCOPIC The s anup is received in formalin, labeled with the patient's name, and identifi ed as "uterus, cervix, bilateral fallopian tubes" and consists of a uterus wit h detached cervix. The uterus and cervix weighs 527 grams. The detached cervi x measures 4.6 cm in length. The ectocervix measures 2.8 x 3.7 cm. The exter nal os measures 0.6 cm. Orientation is limited. Sections of the cervix show angelo-pink glistening cervical mucosa with Nabothian cysts, the largest one andres ures 1.9 cm. The uterus measures: fundus to lower uterine segment - 14.0 cm, anterior to posterior - 10.3 cm and cornu to cornu - 13.3 cm. On the posterio r aspect of the uterus there are fibrous adhesions. The endometrial cavity is compressed by an intramural angelo-white well circumscribed and firm nodule andres uring 9.5 x 7.5 x 6.5 cm. Sectioning of the nodule shows a angelo-white and firm cut surface. The compressed endometrial cavity measures 4.2 x 2.0 cm and is lined by angelo-pink endometrial mucosa measuring up to 0.2 cm. The myometrium m easures up to 2.5 cm. There are two smaller intramural angelo-white firm nodules measuring 0.3 and 0.6 cm present. Also received in the same container are two detached unremarkable fallopian tubes with delicate fimbriated ends. The fal lopian tubes measure 3.0 and 3.6 cm in length, and up to 1.0 cm and 1.2 cm in diameter, respectively. Section code: 1A- anterior cervix; 1B- posterio r cervix; 1C- anterior endomyometrium; 1D- posterior endomyometrium; 1E-1F- re presentative of nodules; 1G- posterior serosa and fibrous adhesions; 1H- repre sentative of both fallopian tubes with fimbriated ends. The second speci men is labeled "left ovarian cyst and ovary" and consists of two portions of o varian tissue measuring 2.5 x 2.3 x 1.0 cm and 3.0 x 2.5 x 2.6 cm. The larges t portion of this specimen shows focal omental adhesions measuring 4.0 x 1.0 x 0.5 cm. Sectioning of the largest portion of the specimen shows a 0.4 and 1.2 cm cystic cavity containing clear mucinous material. Sections of the smaller piece of tissue shows a cyst measuring 1.0 cm, containing clear serous fluid. No other gross abnormalities are seen. Stone Mason sections including omental adhesion and ovarian cyst are submitted as (2A-2C). GROSS PERFOR MED AT [facility] [address] [place] [address] [phone] CONTINUED ON NEXT PAGE RUN DATE: 04/11/19 [place] - [facility] PAGE 3 RUN TIME: 1736 Specimen Inquiry RUN USER: INTERFACE SPEC #: [id number] PATIENT: ANNA MAYO #[id number] (Continued) MICROSCOPIC All of the stains, including any controls performed, stain appropriately. MICROSCOPIC PERFORMED AT [facility] [address] [facility] [place], [place] [address] [phone] PERFORMING SITE Diagnosis performed at: [facility] [address] [place] [address] S igned SIGNATURE ON FILE Niranjan Jackson MD 04/11/19 1735 E ND OF REPORT CBC W/AUTO [id number] 07:06:00* Test Item Value Reference Range Interpretation Comments WHITE BLOOD CELL (test code = WBC) 9.9 K/mm3 4.5-12.5 N RED BLOOD CELL (test code = RBC) 2.20 mill/mm3 3.7-5.2 L HEMOGLOBIN (test code = HGB) 6.8 gram/dL 11.5-15.5 L RESULT VERIFIED BY REPEAT ANALYSIS HEMATOCRIT (test code = HCT) 21.4 % 36.0-46.0 LL Results called to [id number] by EFREM 04/11/19 0705Critical results verified and read back by Nurse? Y MEAN CELL VOLUME (test code = MCV) 97.3 fL 80-98 N MEAN CELL HGB (test code = MCH) 30.9 picogram 27.0-33.0 N MEAN CELL HGB CONCETRATION (test code = MCHC) 31.8 gram/dL 33.0-36. 0 L RED CELL DISTRIBUTION WIDTH (test code = RDW) 13.0 % 11.6-16. 2 N RED CELL DISTRIBUTION WIDTH SD (test code = RDW-SD) 46.4 fL 37 .0-51.0 N PLATELET COUNT (test code = PLT) 174 K/mm3 150-450 RESULT VERIFIED BY REPEAT ANALYSIS MEAN PLATELET VOLUME (test code = MPV) 10.5 fL 6.7-11.0 N NEUTROPHIL % (test code = NT%) 74.0 % 39.0-69.0 H IMMATURE GRANULOCYTE % (test code = IG%) 0.3 % 0.0-5.0 N LYMPHOCYTE % (test code = LY%) 15.2 % 25.0-55.0 L MONOCYTE % (test code = MO%) 10.0 % 0.0-10.0 N EOSINOPHIL % (test code = EO%) 0.2 % 0.0-5.0 N BASOPHIL % (test code = BA%) 0.3 % 0.0-1.0 N NUCLEATED RBC % (test code = NRBC%) 0.0 % 0-0 N NEUTROPHIL # (test code = NT#) 7.34 K/mm3 1.8-7.7 N IMMATURE GRANULOCYTE # (test code = IG#) 0.03 x10 3/uL 0-0.03 N LYMPHOCYTE # (test code = LY#) 1.51 K/mm3 1.0-5.0 N MONOCYTE # (test code = MO#) 0.99 K/mm3 0-0.8 H EOSINOPHIL # (test code = EO#) 0.02 K/mm3 0.0-0.5 N BASOPHIL # (test code = BA#) 0.03 K/mm3 0.0-0.2 N NUCLEATED RBC # (test code = NRBC#) 0.00 K/mm3 0.0-0.1 N MANUAL DIFF REQUIRED (test code = MDIFF) NO COMPREHENSIVE METABOLIC [id number] 07:01:00* Test Item Value Reference Range Interpretation Comments SODIUM (test code = NA) 147 mmol/L 136-145 H RESU LT VERIFIED BY REPEAT ANALYSIS POTASSIUM (test code = K) 3.7 mmol/L 3.5-5.1 N CHLORIDE (test code = CL) 113.0 mmol/L 98-107 H CARBON DIOXIDE (test code = CO2) 28.0 mmol/L 21-32 N ANION GAP (test code = GAP) 9.7 10-20 L GLUCOSE (test code = GLU) 110 mg/dL 74-106 H BLOOD UREA NITROGEN (test code = BUN) 18 mg/dL 7-18 N GLOMERULAR FILTRATION RATE (test code = GFR) > 60 mL/min >=60 Estimated GFR by using Modified MDRD formula.Chronic kidney disease is defined as either kidney damageor GFR <60 mL/min/1.73 m2 for >3 months. CREATININE (test code = CREAT) 1.00 mg/dL 0.55-1.02 N Note change in reference range due to change in reagent. BUN/CREATININE RATIO (test code = BUN/CREA) 18.1 10-20 N TOTAL PROTEIN (test code = PROT) 4.5 gram/dL 6.4-8.2 L ALBUMIN (test code = ALB) 2.3 g/dL 3.4-5.0 L GLOBULIN (test code = GLOB) 2.2 gram/dL 2.7-4.2 L ALBUMIN/GLOBULIN RATIO (test code = A/G) 1.0 0.75-1.50 N CALCIUM (test code = CA) 8.0 mg/dL 8.5-10.1 L BILIRUBIN TOTAL (test code = BILT) 0.20 mg/dL 0.0-1.0 N SGOT/AST (test code = AST) 20 IUnit/L 15-37 N SGPT/ALT (test code = ALT) 14 IUnit/L 12-78 N ALKALINE PHOSPHATASE TOTAL (test code = ALKP) 54 IUnit/L 45-117 N Note change in reference range due to change in reagent. - XR ABDOMEN AP 1 [id number] 09:00:00 FAX: Melina Rao MD [phone] [place]: St: [facility] FAX: Rossy Benavides DO [phone] FAX: Artemio Harmon MD [phone] Name: ANNA MAYO [facility] : 1975 Age/S: 43/F [address] Unit #: [id number] Loc: V.2036 [place] [address] Phys: Melina Gleason MD Acct: [id number] Dis Date: Status: ADM IN PH ONE #: [phone] Exam Date: 04/10/2019 0832 FAX #: [phone] Reason: EVALUATE STENT POSITION AND KIDNEY STONES, NG L EXAMS: CPT CODE: [id number] XR ABDOMEN AP 1 V 17807 HISTORY: EVAL UATE STENT POSITION AND KIDNEY STONES, NG LOCATION TECHNIQUE: AP abdomen x-ray COMPARISON: Retrograde urogram the previous day FINDINGS: There is a right-sided ureteral stent with the prox imal end projecting over the renal hilum and the distal end projecting ove r the region of the urinary bladder. Nonobstructive bowel gas pattern. Ayala or cholecystectomy clips are unchanged. Marv-Henry drain projects over the pelvis. Osseous structures are within normal limits. IMPRESSION: Right-sided ureteral stent appears appropriately positioned. Marv-Henry and projects over the pelvis. No NG tube is visualized. Location: [facility] Signed by Jayro Morales MD on 04/10/2019 at 0900 Reported and signed by: Jayro Morales MD CC: Melina Gleason MD; Me celis,Rossy Wright DO; Artemio Feliciano MD Technologist: Concepcion Arango, RT(R); ALEX MURRY RT(R) Trnscrd Date/Time/By: 04/10/2019 (0900) : By: [email or web address] 1 Orig Print D/T: S: 04/10/2019 (0903) PAGE 1 Signed Report COMPREHENSIVE METABOLIC [id number] 07:46:00* Test Item Value Reference Range Interpretation Comments SODIUM (test code = NA) 141 mmol/L 136-145 N POTASSIUM (test code = K) 4.7 mmol/L 3.5-5.1 N CHLORIDE (test code = CL) 109.0 mmol/L 98-107 H CARBON DIOXIDE (test code = CO2) 23.0 mmol/L 21-32 N ANION GAP (test code = GAP) 13.7 10-20 N GLUCOSE (test code = GLU) 164 mg/dL 74-106 H BLOOD UREA NITROGEN (test code = BUN) 22 mg/dL 7-18 H GLOMERULAR FILTRATION RATE (test code = GFR) 31 mL/min >=60 Estimated GFR by using Modified MDRD formula.Chronic kidney disease is defined as either kidney damageor GFR <60 mL/min/1.73 m2 for >3 months. CREATININE (test code = CREAT) 1.80 mg/dL 0.55-1.02 H Note change in reference range due to change in reagent. BUN/CREATININE RATIO (test code = BUN/CREA) 12.6 10-20 N TOTAL PROTEIN (test code = PROT) 5.2 gram/dL 6.4-8.2 L ALBUMIN (test code = ALB) 2.6 g/dL 3.4-5.0 L GLOBULIN (test code = GLOB) 2.6 gram/dL 2.7-4.2 L ALBUMIN/GLOBULIN RATIO (test code = A/G) 1.0 0.75-1.50 N CALCIUM (test code = CA) 7.9 mg/dL 8.5-10.1 L BILIRUBIN TOTAL (test code = BILT) 0.20 mg/dL 0.0-1.0 N SGOT/AST (test code = AST) 17 IUnit/L 15-37 N SGPT/ALT (test code = ALT) 20 IUnit/L 12-78 N ALKALINE PHOSPHATASE TOTAL (test code = ALKP) 69 IUnit/L 45-117 N Note change in reference range due to change in reagent. COMPREHENSIVE METABOLIC [id number] 07:40:00* Test Item Value Reference Range Interpretation Comments SODIUM (test code = NA) 141 mmol/L 136-145 N POTASSIUM (test code = K) 4.7 mmol/L 3.5-5.1 N CHLORIDE (test code = CL) 109.0 mmol/L 98-107 H CARBON DIOXIDE (test code = CO2) mmol/L 21-32 ANION GAP (test code = GAP) 10-20 GLUCOSE (test code = GLU) mg/dL 74-106 BLOOD UREA NITROGEN (test code = BUN) mg/dL 7-18 GLOMERULAR FILTRATION RATE (test code = GFR) mL/min >=60 CREATININE (test code = CREAT) mg/dL 0.55-1.02 BUN/CREATININE RATIO (test code = BUN/CREA) 10-20 TOTAL PROTEIN (test code = PROT) gram/dL 6.4-8.2 ALBUMIN (test code = ALB) g/dL 3.4-5.0 GLOBULIN (test code = GLOB) gram/dL 2.7-4.2 ALBUMIN/GLOBULIN RATIO (test code = A/G) 0.75-1.50 CALCIUM (test code = CA) mg/dL 8.5-10.1 BILIRUBIN TOTAL (test code = BILT) mg/dL 0.0-1.0 SGOT/AST (test code = AST) IUnit/L 15-37 SGPT/ALT (test code = ALT) IUnit/L 12-78 ALKALINE PHOSPHATASE TOTAL (test code = ALKP) IUnit/L 45-117 CBC W/AUTO [id number] 07:09:00* Test Item Value Reference Range Interpretation Comments WHITE BLOOD CELL (test code = WBC) 16.0 K/mm3 4.5-12.5 H RED BLOOD CELL (test code = RBC) 3.12 mill/mm3 3.7-5.2 L HEMOGLOBIN (test code = HGB) 9.6 gram/dL 11.5-15.5 L HEMATOCRIT (test code = HCT) 29.4 % 36.0-46.0 L MEAN CELL VOLUME (test code = MCV) 94.2 fL 80-98 N MEAN CELL HGB (test code = MCH) 30.8 picogram 27.0-33.0 N MEAN CELL HGB CONCETRATION (test code = MCHC) 32.7 gram/dL 33.0-36. 0 L RED CELL DISTRIBUTION WIDTH (test code = RDW) 12.9 % 11.6-16. 2 N RED CELL DISTRIBUTION WIDTH SD (test code = RDW-SD) 44.5 fL 37 .0-51.0 N PLATELET COUNT (test code = PLT) 277 K/mm3 150-450 N MEAN PLATELET VOLUME (test code = MPV) 10.8 fL 6.7-11.0 N NEUTROPHIL % (test code = NT%) 89.8 % 39.0-69.0 H IMMATURE GRANULOCYTE % (test code = IG%) 0.4 % 0.0-5.0 N LYMPHOCYTE % (test code = LY%) 3.9 % 25.0-55.0 L MONOCYTE % (test code = MO%) 5.8 % 0.0-10.0 N EOSINOPHIL % (test code = EO%) 0.0 % 0.0-5.0 N BASOPHIL % (test code = BA%) 0.1 % 0.0-1.0 N NUCLEATED RBC % (test code = NRBC%) 0.0 % 0-0 N NEUTROPHIL # (test code = NT#) 14.36 K/mm3 1.8-7.7 H IMMATURE GRANULOCYTE # (test code = IG#) 0.06 x10 3/uL 0-0.03 H LYMPHOCYTE # (test code = LY#) 0.62 K/mm3 1.0-5.0 L MONOCYTE # (test code = MO#) 0.93 K/mm3 0-0.8 H EOSINOPHIL # (test code = EO#) 0.00 K/mm3 0.0-0.5 N BASOPHIL # (test code = BA#) 0.01 K/mm3 0.0-0.2 N NUCLEATED RBC # (test code = NRBC#) 0.00 K/mm3 0.0-0.1 N MANUAL DIFF REQUIRED (test code = MDIFF) NO - CT ABD PELVIS W/O [id number] 19:19:00 Name: ANNA MAYO [facility] : 1975 Age/S: 43 / F [address] [facility] Unit #: [id number] Loc: [place] [address] Phys: Artemio Feliciano MD Acct: [id number] Dis Date: Status: REG [facility] PHONE #: [phone] Exam Date: 04/09/2019 7813 FAX #: [phone] Reason: EVALUATE URETER AND KIDNEY EXAMS: CPT CODE: [id number] CT ABD PELVIS W/O CONT 59642 HISTORY: Evaluate ureter and kidney. COMPARISON: IVP from same day and CT scan from September 14, 2014. CT abdomen and pelvis: Stone protocol. Automated exposure control. Location: [facility]. CT ABDOMEN: The lung bases are clear. Dependent changes bilaterally. The hepatic parenchyma is unremarkable on this noncontrast exam. No discrete lesions. Patient is post cholecystectomy. The liver is not enlarged. Unremarkable spleen. The stomach is distended well with fluid and it is un remarkable. Dilated distal esophagus with fluid distention. Noncon trast pancreas is normal. Adrenals are normal. Left kidney is free from hydroureteronephrosis. Excretion noted from prior IVP exam contrast. Moderate right hydroureteronephrosis with extensive perinephric fat stran ding with retained contrast within the right kidney. Extensive perinephric fat stranding and small perinephric fluid as well. No patho logic adenopathy. No bowel obstruction or colitis or diverticuliti s or enteritis. Small free air from recent hysterectomy. CT PELVIS: Appendix is normal. Pelvic bowel loops are unobstructed. Small free air from the recent hysterectomy. No drainable abscess. Decompressed urinary bladder with Catalan catheter. Dilated right ureter is demonstrated in its entirety with exception of the portion just prox imal to the UV junction which is not opacified. Rest of the ureter on the right appears unremarkable without evidence for overt injury. Left ureter is unremarkable without dilatation. No pelvic pathologic adenopathy. Subcutaneous tissues demonstrating air within the anterior abdominal PAGE 1 Signed Report (CONTINUED) N woody: ANNA MAYO [facility] : 1 06/18/1974 Age/S: 43 / F [address] [facility] Unit #: [id number] Loc: [place] [address] Phys: Artemio Feliciano MD Acct: [id number] Dis D ate: Status: REG [facility] PHONE #: [phone] Exam Date: 04/09/2019 1857 FAX #: [phone] Reason: EVALUATE URETER AND KIDNEY EXAMS: CPT CODE: [id number] CT ABD PELVIS W/O CONT 57332 <Continued> wall from recent surgery. No drainable fluid collection is noted. No lytic or blastic lesions are noted within the bony skeleton. IMPRESSION: Moderate right hydroureteronephrosis with extensive right perinephric fat stranding and small perinephric fluid collection. The right ureter is demonstrated in its entirety with the exception of the portion just proximal to the UV junction. No obstructing stone or mass is noted at that level. The etiology of the hydroureteronephrosis is unclear. No obvious ureteral injury is visible. Retrograde study and urological evaluation would be of value. Excretion noted normally on the left side without hydroureteronephrosis. Decompressed urinary bladder with Catalan catheter. at 1919 Reported and signed by: Andrés Morales M.D. CC: Rossy Candelaria DO; Artemio Feliciano MD Technologist:Silvia Gordon RT(R); Stiven Flores CTDI: DLP: Trnscb Date/Time: 04/09/2019 (1918) [email or web address] Orig Print D/T: S: 04/09/2019 (1921) PAGE 2 Signed Report - XR IVP W OR W/O [id number] 17:36:00 FAX: Rossy Benavides DO [phone] [place]: St: REG FAX: Artemio Harmon MD [phone] Name: ANNA MAYO [facility] : 1975 Age/S: 43/F [address] [facility] Unit #: [id number] Loc: [place] [address] Phys: Artemio Feliciano MD Acct: [id number] Dis Date: Status: REG [facility] PHONE #: [phone] Exam Date: 04/09/2019 1455 FAX #: [phone] Reason: EVALUATE URETERS AFTER HYSTERECTOMY EXAMS: CPT CODE: [id number] XR IVP W OR W/O ANSON 38377 HISTORY: Ureters evaluation after hysterectomy. CO MPARISON: No recent images available. Location: [facility]. IVP: 100 mL of Isovue 370 administered. Sequential images obtained. Balance Sheet Analyst view of the abdomen demonstrating patient is post cholecystectomy. No pathologic calcifications. Constipation. Phlebolith within the bony p leonardo. Surgical clip in the right hemipelvis. Following cont rast administration. Prompt opacification of left kidney with excretion no sofiya on the left. Extrarenal pelvis on the left. Ureter is normal on the le ft. No hydroureteronephrosis. Delayed opacification of the right k idney with delayed excretion which is seen within the calyces at 15 minute s. Moderate hydronephrosis is noted with cutoff of the proximal/mid ureter at L4 level. The distal ureter is not identified. Correlate with CT scan for further evaluation. Urinary bladder is distended well. N o wall thickening. IMPRESSION: Moderate right hydronephrosis with ureteral cut off at mid to proximal ureter at L4 lev el. Correlate with CT scan to evaluate for ureteral injury. at 1739 Reported and signed by: Andrés Morales M.D. CC: Rossy Candelaria; Artemio Feliciano MD Technologist: Ankita Siegel RT(R); Concepcion Arango RT(R); ... Trnscrd Date/Time/By: 04/09/2019 (7729) : By: [email or web address] Orig Print D/T: S: 04/09/2019 (4783) PAGE 1 Signed Report COMPREHENSIVE METABOLIC [id number] 18:14:00* Test Item Value Reference Range Interpretation Comments SODIUM (test code = NA) 139 mmol/L 136-145 N POTASSIUM (test code = K) 4.4 mmol/L 3.5-5.1 N CHLORIDE (test code = CL) 108.0 mmol/L 98-107 H CARBON DIOXIDE (test code = CO2) 26.0 mmol/L 21-32 N ANION GAP (test code = GAP) 9.4 10-20 L GLUCOSE (test code = GLU) 79 mg/dL 74-106 N BLOOD UREA NITROGEN (test code = BUN) 23 mg/dL 7-18 H GLOMERULAR FILTRATION RATE (test code = GFR) > 60 mL/min >=60 Estimated GFR by using Modified MDRD formula.Chronic kidney disease is defined as either kidney damageor GFR <60 mL/min/1.73 m2 for >3 months. CREATININE (test code = CREAT) 0.90 mg/dL 0.55-1.02 N Note change in reference range due to change in reagent. BUN/CREATININE RATIO (test code = BUN/CREA) 25.6 10-20 H TOTAL PROTEIN (test code = PROT) 7.8 gram/dL 6.4-8.2 N ALBUMIN (test code = ALB) 3.9 g/dL 3.4-5.0 N GLOBULIN (test code = GLOB) 3.9 gram/dL 2.7-4.2 N ALBUMIN/GLOBULIN RATIO (test code = A/G) 1.0 0.75-1.50 N CALCIUM (test code = CA) 9.3 mg/dL 8.5-10.1 N BILIRUBIN TOTAL (test code = BILT) 0.30 mg/dL 0.0-1.0 N SGOT/AST (test code = AST) 20 IUnit/L 15-37 N SGPT/ALT (test code = ALT) 41 IUnit/L 12-78 N ALKALINE PHOSPHATASE TOTAL (test code = ALKP) 103 IUnit/L 45-117 N Note change in reference range due to change in reagent. HCG SERUM [id number] 18:14:00* Test Item Value Reference Range Interpretation Comments HCG SERUM QUAL (test code = HCGQL) NEGATIVE NEGATIVE This HCGQL test is NOT applicable for MALE patients.Check with nurse about probable order error.If Tumor Marker Test needed, nurse should order test "HCGTU"(Test #[id number]) COMPREHENSIVE METABOLIC [id number] 17:42:00* Test Item Value Reference Range Interpretation Comments SODIUM (test code = NA) 139 mmol/L 136-145 N POTASSIUM (test code = K) 4.4 mmol/L 3.5-5.1 N CHLORIDE (test code = CL) 108.0 mmol/L 98-107 H CARBON DIOXIDE (test code = CO2) 26.0 mmol/L 21-32 N ANION GAP (test code = GAP) 9.4 10-20 L GLUCOSE (test code = GLU) 79 mg/dL 74-106 N BLOOD UREA NITROGEN (test code = BUN) 23 mg/dL 7-18 H GLOMERULAR FILTRATION RATE (test code = GFR) > 60 mL/min >=60 Estimated GFR by using Modified MDRD formula.Chronic kidney disease is defined as either kidney damageor GFR <60 mL/min/1.73 m2 for >3 months. CREATININE (test code = CREAT) 0.90 mg/dL 0.55-1.02 N Note change in reference range due to change in reagent. BUN/CREATININE RATIO (test code = BUN/CREA) 25.6 10-20 H TOTAL PROTEIN (test code = PROT) 7.8 gram/dL 6.4-8.2 N ALBUMIN (test code = ALB) 3.9 g/dL 3.4-5.0 N GLOBULIN (test code = GLOB) 3.9 gram/dL 2.7-4.2 N ALBUMIN/GLOBULIN RATIO (test code = A/G) 1.0 0.75-1.50 N CALCIUM (test code = CA) 9.3 mg/dL 8.5-10.1 N BILIRUBIN TOTAL (test code = BILT) 0.30 mg/dL 0.0-1.0 N SGOT/AST (test code = AST) 20 IUnit/L 15-37 N SGPT/ALT (test code = ALT) 41 IUnit/L 12-78 N ALKALINE PHOSPHATASE TOTAL (test code = ALKP) 103 IUnit/L 45-117 N Note change in reference range due to change in reagent. HCG SERUM [id number] 17:42:00* Test Item Value Reference Range Interpretation Comments HCG SERUM QUAL (test code = HCGQL) NEGATIVE COMPREHENSIVE METABOLIC [id number] 17:32:00* Test Item Value Reference Range Interpretation Comments SODIUM (test code = NA) 139 mmol/L 136-145 N POTASSIUM (test code = K) 4.4 mmol/L 3.5-5.1 N CHLORIDE (test code = CL) 108.0 mmol/L 98-107 H CARBON DIOXIDE (test code = CO2) mmol/L 21-32 ANION GAP (test code = GAP) 10-20 GLUCOSE (test code = GLU) mg/dL 74-106 BLOOD UREA NITROGEN (test code = BUN) mg/dL 7-18 GLOMERULAR FILTRATION RATE (test code = GFR) mL/min >=60 CREATININE (test code = CREAT) mg/dL 0.55-1.02 BUN/CREATININE RATIO (test code = BUN/CREA) 10-20 TOTAL PROTEIN (test code = PROT) gram/dL 6.4-8.2 ALBUMIN (test code = ALB) g/dL 3.4-5.0 GLOBULIN (test code = GLOB) gram/dL 2.7-4.2 ALBUMIN/GLOBULIN RATIO (test code = A/G) 0.75-1.50 CALCIUM (test code = CA) mg/dL 8.5-10.1 BILIRUBIN TOTAL (test code = BILT) mg/dL 0.0-1.0 SGOT/AST (test code = AST) IUnit/L 15-37 SGPT/ALT (test code = ALT) IUnit/L 12-78 ALKALINE PHOSPHATASE TOTAL (test code = ALKP) IUnit/L 45-117 HCG SERUM [id number] 17:32:00* Test Item Value Reference Range Interpretation Comments HCG SERUM QUAL (test code = HCGQL) NEGATIVE CBC W/AUTO [id number] 17:17:00* Test Item Value Reference Range Interpretation Comments WHITE BLOOD CELL (test code = WBC) 6.4 K/mm3 4.5-12.5 N RED BLOOD CELL (test code = RBC) 4.50 mill/mm3 3.7-5.2 N HEMOGLOBIN (test code = HGB) 14.0 gram/dL 11.5-15.5 N HEMATOCRIT (test code = HCT) 42.1 % 36.0-46.0 N MEAN CELL VOLUME (test code = MCV) 93.6 fL 80-98 N MEAN CELL HGB (test code = MCH) 31.1 picogram 27.0-33.0 N MEAN CELL HGB CONCETRATION (test code = MCHC) 33.3 gram/dL 33.0-36. 0 N RED CELL DISTRIBUTION WIDTH (test code = RDW) 12.3 % 11.6-16. 2 N RED CELL DISTRIBUTION WIDTH SD (test code = RDW-SD) 42.5 fL 37 .0-51.0 N PLATELET COUNT (test code = PLT) 284 K/mm3 150-450 N MEAN PLATELET VOLUME (test code = MPV) 10.2 fL 6.7-11.0 N NEUTROPHIL % (test code = NT%) 59.7 % 39.0-69.0 N IMMATURE GRANULOCYTE % (test code = IG%) 0.3 % 0.0-5.0 N LYMPHOCYTE % (test code = LY%) 27.9 % 25.0-55.0 N MONOCYTE % (test code = MO%) 8.4 % 0.0-10.0 N EOSINOPHIL % (test code = EO%) 2.8 % 0.0-5.0 N BASOPHIL % (test code = BA%) 0.9 % 0.0-1.0 N NUCLEATED RBC % (test code = NRBC%) 0.0 % 0-0 N NEUTROPHIL # (test code = NT#) 3.82 K/mm3 1.8-7.7 N IMMATURE GRANULOCYTE # (test code = IG#) 0.02 x10 3/uL 0-0.03 N LYMPHOCYTE # (test code = LY#) 1.79 K/mm3 1.0-5.0 N MONOCYTE # (test code = MO#) 0.54 K/mm3 0-0.8 N EOSINOPHIL # (test code = EO#) 0.18 K/mm3 0.0-0.5 N BASOPHIL # (test code = BA#) 0.06 K/mm3 0.0-0.2 N NUCLEATED RBC # (test code = NRBC#) 0.00 K/mm3 0.0-0.1 N MANUAL DIFF REQUIRED (test code = MDIFF) NO CBC W/AUTO [id number] 17:15:00* Test Item Value Reference Range Interpretation Comments WHITE BLOOD CELL (test code = WBC) K/mm3 4.5-12.5 RED BLOOD CELL (test code = RBC) mill/mm3 3.7-5.2 HEMOGLOBIN (test code = HGB) 14.0 gram/dL 11.5-15.5 N HEMATOCRIT (test code = HCT) 42.1 % 36.0-46.0 N MEAN CELL VOLUME (test code = MCV) fL 80-98 MEAN CELL HGB (test code = MCH) picogram 27.0-33.0 MEAN CELL HGB CONCETRATION (test code = MCHC) gram/dL 33.0-36. 0 RED CELL DISTRIBUTION WIDTH (test code = RDW) % 11.6-16. 2 RED CELL DISTRIBUTION WIDTH SD (test code = RDW-SD) fL 37 .0-51.0 PLATELET COUNT (test code = PLT) K/mm3 150-450 MEAN PLATELET VOLUME (test code = MPV) fL 6.7-11.0 NEUTROPHIL % (test code = NT%) % 39.0-69.0 IMMATURE GRANULOCYTE % (test code = IG%) % 0.0-5.0 LYMPHOCYTE % (test code = LY%) % 25.0-55.0 MONOCYTE % (test code = MO%) % 0.0-10.0 EOSINOPHIL % (test code = EO%) % 0.0-5.0 BASOPHIL % (test code = BA%) % 0.0-1.0 NEUTROPHIL # (test code = NT#) K/mm3 1.8-7.7 LYMPHOCYTE # (test code = LY#) K/mm3 1.0-5.0 MONOCYTE # (test code = MO#) K/mm3 0-0.8 EOSINOPHIL # (test code = EO#) K/mm3 0.0-0.5 BASOPHIL # (test code = BA#) K/mm3 0.0-0.2 Urine [id number] 09:43:00* Test Item Value Reference Range Interpretation Comments Urine Test (test code = 2106-3) NEGATIVE NEGATIVE [facility] [id number] 21:37:00* Test Item Value Reference Range Interpretation Comments Parathyroid Hormone (test code = 2731-8) 26 15-65 [facility]2019-01-01 21:37:00* Test Item Value Reference Range Interpretation Comments Calcium (Send out) (test code = 46401-4) 9.7 8.7-10.2 [facility]ation 2019-01-01 21:37:00* Test Item Value Reference Range Interpretation Comments Parathyroid Hormone Interpretation (test code = Parathyroid Hormone Interpretation) Comment . Interpretation Intact PTH Calcium (pg/mL) (mg/dL)Normal 15 - 65 8.6 - 10.2Pr imary Hyperparathyroidism >65 >10.2Secondary Hyperparathyroidism >65 <10.2Non-Parathyroid Hypercalcemia <65 >10.2Hypoparathyroidism <15 < 8.6Non- Parathyroid Hypocalcemia 15 - 65 < 8.6Performed at: - [facility] [id number] Director: Derek Galvan MD, Phone: [phone] at: [facility] [id number] Director: Mely Samayoa MD, Phone: [phone] [facility] CenterParathyroid [id number] 21:37:00* Test Item Value Reference Range Interpretation Comments Parathyroid Hormone (test code = 2731-8) 26 15-65 [facility]2019-01-01 21:37:00* Test Item Value Reference Range Interpretation Comments Calcium (Send out) (test code = 06846-9) 9.7 8.7-10.2 [facility]ation 2019-01-01 21:37:00* Test Item Value Reference Range Interpretation Comments Parathyroid Hormone Interpretation (test code = Parathyroid Hormone Interpretation) Comment . Interpretation Intact PTH Calcium (pg/mL) (mg/dL)Normal 15 - 65 8.6 - 10.2Pr imary Hyperparathyroidism >65 >10.2Secondary Hyperparathyroidism >65 <10.2Non-Parathyroid Hypercalcemia <65 >10.2Hypoparathyroidism <15 < 8.6Non- Parathyroid Hypocalcemia 15 - 65 < 8.6Performed at: [facility] [id number] Director: Derek Galvan MD, Phone: [phone] at: [facility] [id number] Director: Mely Samayoa MD, Phone: [phone] ([facility])2018-12-31 15:56:00 [place] [address] Patient Name: ANNA MAYO MR #: [id number] : 1975 Age/Sex: 43/F Req #: [id number] Adm Physician: Ordered by: MELINA GLEASON MD Report #: [id number] Location: OR Room/Bed: Procedure: [id number] DX/ABDOME N-1VIEW (KUB) Exam Date: 12/31/18 Exam Time: 1516 REPORT STATUS: Signed EXAM: ABDOM EN-1VIEW (KUB) DATE: 12/31/2018 2:49 PM INDICATION: Preoperative eval uation, ESWL COMPARISON: None Impression: Bowel gas pattern appe ars nonobstructive. No pathologic without a loops of bowel are identified. No intraperitoneal free air is appreciated. There is a subcentimeter calcifica tion identified overlying the left renal shadow which may represent renal ston e. No other abnormal intraabdominal calcification is appreciated. No acut e osseous abnormality is identified. Signed by: Dr. Earl Burden MD on 12/06 3:58 PM Dictated By: EARL BURDEN MD [id number] Transcribed By: MAGUI on 12/31/18 4163 C OPY TO: MELINA GLEASON MD [employer] [id number] 15:29:00* Test Item Value Reference Range Interpretation Comments Uric Acid (test code = 3084-1) 5.4 2.6-8.0 [facility] [id number] 15:29:00* Test Item Value Reference Range Interpretation Comments Uric Acid (test code = 3084-1) 5.4 2.6-8.0 [facility]
[2019-12-22 22:10] LABS: BACTERIA,URINE FEW /HPF; EPITHELIAL CELLS,URINE FEW /LPF
[2019-12-22 22:12] LABS: ANION GAP 16.9 mmol/L (8-16); BLOOD UREA NITROGEN 16 mg/dL (7-26); BUN/CREATININE RATIO 18 (6-25); CALCIUM 9.6 mg/dL (8.4-10.2); CARBON DIOXIDE 23 mmol/L (22-29); CHLORIDE 104 mmol/L (98-107); CREATININE, SERUM 0.89 mg/dL (0.57-1.11); EST GLOMERULAR FILTRATION RATE > 60 ML/MIN (60-); GLUCOSE 92 mg/dL (74-118); POTASSIUM 3.9 mmol/L (3.5-5.1); SODIUM 140 mmol/L (136-145)
[2019-12-22] MEDS: CEFTRIAXONE SOD 1 GM/NS 50 ML 50 ML IV SCH (22:24)
--- OUTSIDE RECORDS SUMMARY | 2019-12-22 22:31 | XMS REPORT | Continuity of Care Document ---
Author Author [facility] t Organization [facility] Address [address] [place] [address] Phone Unavailable Care Team Providers Care Supervisor [employer] Name Role Phone ROSSY CANDELARIA DO PCP SHANNAN LUCERO Attphys Unavailable HENDERSON, SOUHEIL Attphys Unavailable HAMPEL, MELINA Attphys Unavailable SCHATTE, EDWARD Attphys Unavailable HENDERSON, SOUHEIL Admphys Unavailable Payers Payer Name Policy Type Policy Number Effective Date Expiration Date Ethan Morris o [id number] 2015 00:00:00 [facility] Problems This patient has no known problems. Allergies, Adverse Reactions, Alerts Allergy Name Allergy Type Status Severity Reaction(s) Onset Date Inacti ve Date Treating Clinician Comments Source Sulfa (Sulfonamide Antibiotics) Allergy to Substance Active hives, itching, nausea, and vomiting 2019-06-24 00:00:00 [facility] Morphine Allergy to Substance Active hives, itching, nausea, and vomiting 2019-06-24 00:00:00 [facility] Tramadol Allergy to Substance Active 2019-06-24 00:00:00 [facility] Ketorolac Allergy to Substance Active hives, itching, nausea, and vomiting 2019-06-24 00:00:00 [facility] tramadol DA Active U 2019-04-07 00:00:00 [facility] ketorolac DA Active U 2019-04-07 00:00:00 [facility] Sulfa (Sulfonamide Antibiotics) DA Active SV 2014-09-15 00 :00:00 [facility] morphine DA Active U 2014-09-14 00:00:00 [facility] CODIINE DA Active U 2014-09-14 00:00:00 [facility] Medications Ordered Medication Name Filled Medication Name Start Date Stop Da te Current Medication? Ordering Clinician Indication Dosage Frequency Signature (SIG) Comments Components Source Acetaminophen/Codeine Phosphate (Tylenol # 3*) 1 Ea Ta b Acetaminophen/Codeine Phosphate (Tylenol # 3*) 1 Ea Tab Yes 1 Every 4 Hours as needed for Moderate Pain (4-6) [facility] Lisinopril 10 Mg Tablet Lisinopril 10 Mg Tablet Yes 10 Daily [facility] Oxybutynin Chloride (Oxybutynin Chloride Er) 5 Mg Tab. er.24 Oxybutynin Chloride (Oxybutynin Chloride Er) 5 Mg Tab.er.24 Yes 1 Three Times A Day [facility] Cefuroxime Axetil (Cefuroxime) 500 Mg Tablet, 500 Mg O ral Cefuroxime Axetil (Cefuroxime) 500 Mg Tablet, 500 Mg Oral 2019-06-28 00:00:00 No 500 Twice A Day [facility] Fluconazole 100 Mg Tablet, 100 Mg Oral Fluconazole 100 Mg Tablet , 100 Mg Oral 2019-06-28 00:00:00 No 100 Daily [facility] Procedures Procedure Date / Time Performed Performing Clinician [facility] e CT of abdomen and pelvis without contrast 2019-07-08 00:00:00 SHANNAN LUCIO [facility] CT of abdomen and pelvis without contrast 2019-06-24 00:00:00 TRAY OH [facility] FRAGMENTING OF KIDNEY STONE 2019-05-16 00:00:00 MELINA GLEASON [facility] CT of abdomen and pelvis without contrast 2019-04-23 00:00:00 WILLOW HURST [facility] FRAGMENTING OF KIDNEY STONE 2019-01-10 00:00:00 [facility] CYSTOSCOPY & URETER CATHETER 2019-01-10 00:00:00 [facility] Encounters Start Date/Time End Date/Time Encounter Type Admission Type [facility] Care Department Encounter ID Source 2019-07-08 01:58:00 2019-07-08 07:12:00 Departed Emergency Room 1 SHANNAN LUCERO [facility] [id number] [facility] 2019-06-25 11:22:00 2019-06-28 14:16:00 Discharged Inpatient 1 JACEK HENDERSON [facility] [id number] [facility] 2019-06-20 09:47:00 2019-06-20 09:47:00 Registered Surgical Day Care [facility] [id number] [facility] 2019-05-16 05:18:00 2019-05-16 05:18:00 Registered Surgical Day Car e 3 HITESH [facility] [id number] [facility] 2019-04-23 13:13:00 2019-04-23 13:13:00 Registered Clinic 3 WILLOW PIMENTEL [facility] [id number] [facility] 2019-01-10 09:05:00 2019-01-10 09:05:00 Registered Surgical Day Car e 3 VARUN [facility] [id number] [facility] Results Test Description Test Time Test Comments Results Result Comments Source Sodium Level 2019-07-08 05:07:00 Test Item Sodium Level (test code = 2951-2) 139 136-145 [facility] Xtfxs1182-92-05 05:07:00* Test Item Value Reference Range Interpretation Comments Potassium Level (test code = 2823-3) 4.2 3.5-5.1 [facility] CenterChloride Uuqab9595-83-69 05:07:00* Test Item Value Reference Range Interpretation Comments Chloride Level (test code = 2075-0) 105 98-107 [facility] CenterCarbon Dioxide Lypyj9266-29-45 05:07:00* Test Item Value Reference Range Interpretation Comments Carbon Dioxide Level (test code = 2028-9) 24 22-29 [facility] CenterAnion Req5192-09-48 05:07:00* Test Item Value Reference Range Interpretation Comments Anion Gap (test code = 33997-5) 14.2 8-16 [facility] Urea Ferqvoqz0967-88-21 05:07:00* Test Item Value Reference Range Interpretation Comments Blood Urea Nitrogen (test code = 3094-0) 22 7-26 [facility] CenterCreatinine2020-03-03 05:07:00* Test Item Value Reference Range Interpretation Comments Creatinine (test code = 2160-0) 0.87 0.57-1.11 [facility] CenterBUN/Creatinine Czhnb2039-05-35 05:07:00* Test Item Value Reference Range Interpretation Comments BUN/Creatinine Ratio (test code = 3097-3) 25 6-25 [facility]at Glomerular Filtration Rate 2019-07-08 05:07:00* Test Item Value Reference Range Interpretation Comments Estimat Glomerular Filtration Rate (test code = 084283490) > 60 >60 Ranges were taken from the National Kidney Disease Education Program and the [facility] literature.Reference ranges:60 or greater: Agclgb18-13 ( for 3 consecutive months): Chronic kidney disease 15 or less: Kidney failureNorth [facility] Medical CenterGlucose Ddsqb7851-21-78 05:07:00* Test Item Value Reference Range Interpretation Comments Glucose Level (test code = OBW9341) 114 74-118 [facility] CenterCalcium Qdpmv9644-11-99 05:07:00* Test Item Value Reference Range Interpretation Comments Calcium Level (test code = 12195-4) 9.6 8.4-10.2 [facility] CenterTotal Syvpyecfa3500-20-52 05:07:00* Test Item Value Reference Range Interpretation Comments Total Bilirubin (test code = 1975-2) 0.3 0.2-1.2 [facility] CenterAspartate Amino Transf (AST/SGOT) 2019-07-08 05:07:00* Test Item Value Reference Range Interpretation Comments Aspartate Amino Transf (AST/SGOT) (test code = Aspartate Amino Transf (AST/SGOT)) 14 5-34 [facility] CenterAlanine Aminotransferase (ALT/SGPT) 2019-07-08 05:07:00* Test Item Value Reference Range Interpretation Comments Alanine Aminotransferase (ALT/SGPT) (test code = 1742-6) 14 0-55 [facility] CenterTotal Uhfimjd8638-01-98 05:07:00* Test Item Value Reference Range Interpretation Comments Total Protein (test code = 2885-2) 7.7 6.5-8.1 [facility] CenterAlbumin2020-03-03 05:07:00* Test Item Value Reference Range Interpretation Comments Albumin (test code = 1751-7) 4.0 3.5-5.0 [facility] CenterGlobulin2020-03-03 05:07:00* Test Item Value Reference Range Interpretation Comments Globulin (test code = 37103-9) 3.7 2.3-3.5 H [facility] CenterAlbumin/Globulin Uqnmo5656-27-94 05:07:00 * Test Item Value Reference Range Interpretation Comments Albumin/Globulin Ratio (test code = 1759-0) 1.1 0.8-2.0 [facility] CenterAlkaline Rctahkptaox5494-78-93 05:07:00* Test Item Value Reference Range Interpretation Comments Alkaline Phosphatase (test code = 6768-6) 109 40-150 [facility] CenterUrine Gute6292-53-34 05:02:00* Test Item Value Reference Range Interpretation Comments Urine Test (test code = 2106-3) NEGATIVE NEGATIVE [facility] CenterWhite Blood Cnedk1506-14-84 04:53:00* Test Item Value Reference Range Interpretation Comments White Blood Count (test code = 6690-2) 7.70 4.8-10.8 [facility] CenterRed Blood Zqedu1465-17-21 04:53:00* Test Item Value Reference Range Interpretation Comments Red Blood Count (test code = 789-8) 4.28 3.6-5.1 [facility] CenterHemoglobin2020-03-03 04:53:00* Test Item Value Reference Range Interpretation Comments Hemoglobin (test code = 82379-8) 13.0 12.0-16.0 [facility] CenterHematocrit2020-03-03 04:53:00* Test Item Value Reference Range Interpretation Comments Hematocrit (test code = 4544-3) 38.9 34.2-44.1 [facility] CenterMean Corpuscular Rcaswl0993-06-67 04:53:00* Test Item Value Reference Range Interpretation Comments Mean Corpuscular Volume (test code = 787-2) 90.9 81-99 [facility] CenterMean Corpuscular Pmmdzwozkj5563-05-98 04:53:00* Test Item Value Reference Range Interpretation Comments Mean Corpuscular Hemoglobin (test code = 785-6) 30.4 28-32 [facility] CenterMean Corpuscular Hemoglobin Concent 2019-07-08 04:53:00* Test Item Value Reference Range Interpretation Comments Mean Corpuscular Hemoglobin Concent (test code = 786-4) 33.4 31-35 [facility] CenterRed Cell Distribution Qokjj7977-05-74 04:53:00* Test Item Value Reference Range Interpretation Comments Red Cell Distribution Width (test code = 58414-7) 12.0 11.7 -14.4 [facility] CenterPlatelet Jpked5507-42-64 04:53:00* Test Item Value Reference Range Interpretation Comments Platelet Count (test code = 777-3) 238 140-360 [facility] CenterNeutrophils (%) (Auto)2019-07-08 04:53:00 * Test Item Value Reference Range Interpretation Comments Neutrophils (%) (Auto) (test code = 88782-2) 65.6 38.7-80.0 [facility] CenterLymphocytes (%) (Auto)2019-07-08 04:53:00 * Test Item Value Reference Range Interpretation Comments Lymphocytes (%) (Auto) (test code = 736-9) 23.6 18.0-39.1 [facility] CenterMonocytes (%) (Auto)2019-07-08 04:53:00* Test Item Value Reference Range Interpretation Comments Monocytes (%) (Auto) (test code = 5905-5) 6.6 4.4-11.3 [facility] CenterEosinophils (%) (Auto)2019-07-08 04:53:00 * Test Item Value Reference Range Interpretation Comments Eosinophils (%) (Auto) (test code = 713-8) 3.0 0.0-6.0 [facility] CenterBasophils (%) (Auto)2019-07-08 04:53:00* Test Item Value Reference Range Interpretation Comments Basophils (%) (Auto) (test code = 706-2) 0.9 0.0-1.0 [facility] CenterIM GRANULOCYTES %2019-07-08 04:53:00* Test Item Value Reference Range Interpretation Comments IM GRANULOCYTES % (test code = IM GRANULOCYTES %) 0.3 0.0- 1.0 [facility] CenterNeutrophils # (Auto)2019-07-08 04:53:00* Test Item Value Reference Range Interpretation Comments Neutrophils # (Auto) (test code = 751-8) 5.1 2.1-6.9 [facility] CenterLymphocytes # (Auto)2019-07-08 04:53:00* Test Item Value Reference Range Interpretation Comments Lymphocytes # (Auto) (test code = 53143-1) 1.8 1.0-3.2 [facility] CenterMonocytes # (Auto)2019-07-08 04:53:00* Test Item Value Reference Range Interpretation Comments Monocytes # (Auto) (test code = 742-7) 0.5 0.2-0.8 [facility] CenterEosinophils # (Auto)2019-07-08 04:53:00* Test Item Value Reference Range Interpretation Comments Eosinophils # (Auto) (test code = 711-2) 0.2 0.0-0.4 [facility] CenterBasophils # (Auto)2019-07-08 04:53:00* Test Item Value Reference Range Interpretation Comments Basophils # (Auto) (test code = 704-7) 0.1 0.0-0.1 [facility] CenterAbsolute Immature Granulocyte (auto 2019-07-08 04:53:00* Test Item Value Reference Range Interpretation Comments Absolute Immature Granulocyte (auto (dania t code = Absolute Immature Granulocyte (auto) 0.02 0-0.1 [facility] CenterCT ABDOMEN/PELVIS UM7159-70-05 04:41:00 [facility] [address] [address] Patient Name: ANNA MAYO MR #: [id number] : 04/1975 Age/Sex: 44/F Req #: [id number] Adm Physician: Ordered by: SHANNAN LUCERO DO Report #: [id number] Location: ER Room/Bed: Procedure: [id number] CT/CT [...] By: CATALINO MARTINEZ DO 5 Transcribed By: MGAUI on 07/08/19455 COPY TO: SHANNAN LUCERO DO Urine BQS0853-21-10 03:50:00* Test Item Value Reference Range Interpretation Comments Urine WBC (test code = 5821-4) >50 0-5 H [facility] CenterUrine SBH6202-30-88 03:50:00* Test Item Value Reference Range Interpretation Comments Urine RBC (test code = 91809-1) 11-20 0-5 H [facility] CenterUrine Vmplpvhj1077-67-12 03:50:00* Test Item Value Reference Range Interpretation Comments Urine Bacteria (test code = 01599-3) FEW NONE [facility] CenterUrine Epithelial Cfmof6051-57-66 03:50:00 * Test Item Value Reference Range Interpretation Comments Urine Epithelial Cells (test code = 97375-1) FEW NONE [facility] CenterUrine Transitional Epithelial Cells 2019-07-08 03:50:00* Test Item Value Reference Range Interpretation Comments Urine Transitional Epithelial Cells (test code = 8249-5) FEW NONE H [facility] CenterUrine Renal Epithelial Voyiv3255-49-80 03:50:00* Test Item Value Reference Range Interpretation Comments Urine Renal Epithelial Cells (test code = 58507-3) FEW NON E H [facility] CenterUrine Vzqpd4515-82-32 03:42:00* Test Item Value Reference Range Interpretation Comments Urine Color (test code = 5778-6) YELLOW YELLOW [facility] CenterU[facility] Wxdybhj7412-56-29 03:42:00* Test Item Value Reference Range Interpretation Comments Urine Clarity (test code = 78350-1) CLOUDY CLEAR H [facility] CenterUrine Specific Bsrhsbw8112-66-64 03:42:00 * Test Item Value Reference Range Interpretation Comments Urine Specific [place] (test code = 5811-5) 1.025 1.010-1.02 5 [facility] CenterUrine iZ1611-80-91 03:42:00* Test Item Value Reference Range Interpretation Comments Urine pH (test code = 87058-9) 6.5 5-7 [facility] CenterU[facility] Leukocyte Datbwhgw1959-30-02 03:42:00* Test Item Value Reference Range Interpretation Comments Urine Leukocyte Esterase (test code = 5799-2) 2+ NEGATIVE H [facility] CenterUrine Vndlkjz7968-45-84 03:42:00* Test Item Value Reference Range Interpretation Comments Urine Nitrite (test code = 18063-1) NEGATIVE NEGATIVE [facility] CenterUrine Wmlkcsh3056-06-63 03:42:00* Test Item Value Reference Range Interpretation Comments Urine Protein (test code = 5804-0) TRACE NEGATIVE H [facility] CenterUrine Glucose (UA)2019-07-08 03:42:00* Test Item Value Reference Range Interpretation Comments Urine Glucose (UA) (test code = 2349-9) NEGATIVE NEGATIVE [facility] CenterUrine Liwxebz3432-85-85 03:42:00* Test Item Value Reference Range Interpretation Comments Urine Ketones (test code = 35590-4) NEGATIVE NEGATIVE [facility] Mgztmuayiioz4272-76-53 03:42:00* Test Item Value Reference Range Interpretation Comments Urine Urobilinogen (test code = 23605-1) 0.2 0.2-1 [facility] Ojklyqsra3260-77-48 03:42:00* Test Item Value Reference Range Interpretation Comments Urine Bilirubin (test code = 1978-6) 1+ NEGATIVE H [facility] CenterUrine Yzhvd2527-54-41 03:42:00* Test Item Value Reference Range Interpretation Comments Urine Blood (test code = 19217-1) 2+ NEGATIVE H [facility] CenterUrine Opiates Jdqzha3470-75-22 03:38:00* Test Item Value Reference Range Interpretation Comments Urine Opiates Screen (test code = 66932-6) NEGATIVE NEGATIVE ALL TESTS PERFORMED MANUALLY ON [employer] [employer] TOX/SEE TESTNorth [facility] Medical CenterUrine Barbiturates Unkwfw7645-82-86 03:38:00* Test Item Value Reference Range Interpretation Comments Urine Barbiturates Screen (test code = 400761426) NEGATIVE NEGA TIVE [facility] CenterU[facility] Phencyclidine Tubiqx3347-49-49 03:38:00* Test Item Value Reference Range Interpretation Comments Urine Phencyclidine Screen (test code = 57990-9) NEGATIVE NEGAT [place] [facility] CenterUrine Amphetamines Kbzfgn8090-72-85 03:38:00* Test Item Value Reference Range Interpretation Comments Urine Amphetamines Screen (test code = 47310-5) NEGATIVE NEGATI VE [facility] CenterU[facility] Methamphetamines Fkliyz9213-03-81 03:38:00* Test Item Value Reference Range Interpretation Comments Urine Methamphetamines Screen (test code = Urine Metha mphetamines Screen) NEGATIVE NEGATIVE [facility] CenterU[facility] Benzodiazepines Fexeot0299-59-79 03:38:00* Test Item Value Reference Range Interpretation Comments Urine Benzodiazepines Screen (test code = 40223-0) NEGATIVE NEG ATIVE [facility] CenterU[facility] Cocaine Hfqxjq5701-49-46 03:38:00* Test Item Value Reference Range Interpretation Comments Urine Cocaine Screen (test code = 3398-5) NEGATIVE NEGATIVE [facility] CenterU[facility] Cannabinoids Bfmicm8960-79-45 03:38:00* Test Item Value Reference Range Interpretation Comments Urine Cannabinoids Screen (test code = 34195-9) NEGATIVE NEGATI VE THESE RESULTS ARE FOR MEDICAL TREATMENT ONLYTHIS REPORT CONTAINS UNCONFIR MED SCREENING RESULTS*POSITIVE RESULTS WILL BE CONFIRMED BY REFERENCE LAB UPON R EQUEST CUT-OFFDRUG CLASS CONCENTRATION ng/mLAmphetamines 1000Methamphetamines 1000Cocaine 300Opiate 300Phencyc lidine 25Cannabinoid 50Barbiturates 300Benzodiazepine 300Methadone 300[facility]adone Qgrkeh2510-78-29 03:38:00* Test Item Value Reference Range Interpretation Comments Urine Methadone Screen (test code = 75301-4) NEGATIVE NEGATIVE THESE RESULTS ARE FOR MEDICAL TREATMENT ONLYTHIS REPORT CONTAINS UNCONFIR MED SCREENING RESULTS*POSITIVE RESULTS WILL BE CONFIRMED BY REFERENCE LAB UPON R EQUEST CUT-OFFDRUG CLASS CONCENTRATION ng/mLAmphetamines 1000Methamphetamines 1000Cocaine Metabolite 300Opiate 300Phencyc lidine 25Cannabinoid 50Barbiturates 300Benzodiazepine 300Methadone 300[facility] HospitalBlood Uixzaqw8337-76-72 16:02:00* Test Item Value Reference Range Interpretation Comments Blood Culture (test code = 43142312) NO GROWTH AFTER 5 DAYS, FINAL REPORT [facility] CenterBlood Whzxaqk6494-47-80 16:02:00* Test Item Value Reference Range Interpretation Comments Blood Culture (test code = 17540363) NO GROWTH AFTER 72 HOURS [facility] CenterUrine Rjybfwo8638-71-26 10:01:00* Test Item Value Reference Range Interpretation Comments Urine Culture (test code = 630-4) No Result Data Provided [facility] CenterU[facility] Pkjvnss0950-35-83 10:01:00* Test Item Value Reference Range Interpretation Comments Urine Culture (test code = 630-4) No Result Data Provided [facility] CenterCreatine Kinase [id number] 07:31:00* Test Item Value Reference Range Interpretation Comments Creatine Kinase MB (test code = 48585-7) 0.30 0-5.0 [facility] CenterTroponin [id number] 07:31:00* Test Item Value Reference Range Interpretation Comments Troponin I (test code = MSP7545) < 0.001 0-0.300 [facility] CenterCreatine Kinase EI1317-87-13 07:31:00* Test Item Value Reference Range Interpretation Comments Creatine Kinase MB (test code = 76703-3) 0.30 0-5.0 [facility] CenterTroponin R2543-44-00 07:31:00* Test Item Value Reference Range Interpretation Comments Troponin I (test code = FTX3508) < 0.001 0-0.300 [facility] Mrzte7854-50-26 07:15:00* Test Item Value Reference Range Interpretation Comments Sodium Level (test code = 2951-2) 140 136-145 [facility] CenterPotassium Prgrw8663-82-80 07:15:00* Test Item Value Reference Range Interpretation Comments Potassium Level (test code = 2823-3) 4.5 3.5-5.1 [facility] CenterChloride Hncxq7627-24-57 07:15:00* Test Item Value Reference Range Interpretation Comments Chloride Level (test code = 2075-0) 112 98-107 H [facility] CenterCarbon Dioxide Ebaps2907-12-14 07:15:00* Test Item Value Reference Range Interpretation Comments Carbon Dioxide Level (test code = 2028-9) 23 22-29 [facility] CenterAnion Ptt3649-20-23 07:15:00* Test Item Value Reference Range Interpretation Comments Anion Gap (test code = 36746-0) 9.5 8-16 [facility] CenterBlood Urea Lfckjvnt8061-32-78 07:15:00* Test Item Value Reference Range Interpretation Comments Blood Urea Nitrogen (test code = 3094-0) 15 7-26 [facility] CenterCreatinine2020-02-19 07:15:00* Test Item Value Reference Range Interpretation Comments Creatinine (test code = 2160-0) 0.70 0.57-1.11 [facility] CenterBUN/Creatinine Htdpw7670-95-41 07:15:00* Test Item Value Reference Range Interpretation Comments BUN/Creatinine Ratio (test code = 3097-3) 21 6-25 [facility] CenterEstimat Glomerular Filtration Rate 2019-06-25 07:15:00* Test Item Value Reference Range Interpretation Comments Estimat Glomerular Filtration Rate (test code = 121029046) > 60 >60 Ranges were taken from the National Kidney Disease Education Program and the [facility] literature.Reference ranges:60 or greater: Kiybhj78-32 ( for 3 consecutive months): Chronic kidney disease 15 or less: Kidney failureNorth [facility] Medical CenterGlucose Qubeg3186-34-10 07:15:00* Test Item Value Reference Range Interpretation Comments Glucose Level (test code = EMY6034) 100 74-118 [facility] CenterCalcium Kunbu7198-58-24 07:15:00* Test Item Value Reference Range Interpretation Comments Calcium Level (test code = 52536-2) 8.5 8.4-10.2 [facility] CenterTotal Cmrofphlp8181-65-55 07:15:00* Test Item Value Reference Range Interpretation Comments Total Bilirubin (test code = 1975-2) 0.3 0.2-1.2 [facility] CenterAspartate Amino Transf (AST/SGOT) 2019-06-25 07:15:00* Test Item Value Reference Range Interpretation Comments Aspartate Amino Transf (AST/SGOT) (test code = Aspartate Amino Transf (AST/SGOT)) 10 5-34 [facility] CenterAlanine Aminotransferase (ALT/SGPT) 2019-06-25 07:15:00* Test Item Value Reference Range Interpretation Comments Alanine Aminotransferase (ALT/SGPT) (test code = 1742-6) 10 0-55 [facility] CenterTotal Ehwhzme7968-45-72 07:15:00* Test Item Value Reference Range Interpretation Comments Total Protein (test code = 2885-2) 5.3 6.5-8.1 L [facility] CenterAlbumin2020-02-19 07:15:00* Test Item Value Reference Range Interpretation Comments Albumin (test code = 1751-7) 2.8 3.5-5.0 L [facility] CenterGlobulin2020-02-19 07:15:00* Test Item Value Reference Range Interpretation Comments Globulin (test code = 92127-4) 2.5 2.3-3.5 [facility] CenterAlbumin/Globulin Rgyjj6114-41-54 07:15:00 * Test Item Value Reference Range Interpretation Comments Albumin/Globulin Ratio (test code = 1759-0) 1.1 0.8-2.0 [facility] CenterAlkaline Viluajetciy1620-26-06 07:15:00* Test Item Value Reference Range Interpretation Comments Alkaline Phosphatase (test code = 6768-6) 94 40-150 [facility] CenterCreatine Kphmmc3113-63-73 07:15:00* Test Item Value Reference Range Interpretation Comments Creatine Kinase (test code = 2157-6) 16 29-168 L [facility] CenterCreatine Dauqwt7737-64-41 07:15:00* Test Item Value Reference Range Interpretation Comments Creatine Kinase (test code = 2157-6) 16 29-168 L [facility] CenterWhite Blood Nqjbk7630-89-12 06:38:00* Test Item Value Reference Range Interpretation Comments White Blood Count (test code = 6690-2) 7.80 4.8-10.8 [facility] CenterRed Blood Skdao1794-38-81 06:38:00* Test Item Value Reference Range Interpretation Comments Red Blood Count (test code = 789-8) 3.69 3.6-5.1 [facility] CenterHemoglobin2020-02-19 06:38:00* Test Item Value Reference Range Interpretation Comments Hemoglobin (test code = 88901-3) 11.3 12.0-16.0 L [facility] CenterHematocrit2020-02-19 06:38:00* Test Item Value Reference Range Interpretation Comments Hematocrit (test code = 4544-3) 34.4 34.2-44.1 [facility] CenterMean Corpuscular Evlpfa7092-33-14 06:38:00* Test Item Value Reference Range Interpretation Comments Mean Corpuscular Volume (test code = 787-2) 93.2 81-99 [facility] CenterMean Corpuscular Zglslhcrah2579-50-79 06:38:00* Test Item Value Reference Range Interpretation Comments Mean Corpuscular Hemoglobin (test code = 785-6) 30.6 28-32 [facility] CenterMean Corpuscular Hemoglobin Concent 2019-06-25 06:38:00* Test Item Value Reference Range Interpretation Comments Mean Corpuscular Hemoglobin Concent (test code = 786-4) 32.8 31-35 [facility] CenterRed Cell Distribution Bcpfy7003-62-41 06:38:00* Test Item Value Reference Range Interpretation Comments Red Cell Distribution Width (test code = 58482-2) 11.9 11.7 -14.4 [facility] CenterPlatelet Vingx5466-30-43 06:38:00* Test Item Value Reference Range Interpretation Comments Platelet Count (test code = 777-3) 204 140-360 [facility] CenterNeutrophils (%) (Auto)2019-06-25 06:38:00 * Test Item Value Reference Range Interpretation Comments Neutrophils (%) (Auto) (test code = 31511-6) 62.2 38.7-80.0 [facility] CenterLymphocytes (%) (Auto)2019-06-25 06:38:00 * Test Item Value Reference Range Interpretation Comments Lymphocytes (%) (Auto) (test code = 736-9) 22.8 18.0-39.1 [facility] CenterMonocytes (%) (Auto)2019-06-25 06:38:00* Test Item Value Reference Range Interpretation Comments Monocytes (%) (Auto) (test code = 5905-5) 12.3 4.4-11.3 H [facility] CenterEosinophils (%) (Auto)2019-06-25 06:38:00 * Test Item Value Reference Range Interpretation Comments Eosinophils (%) (Auto) (test code = 713-8) 1.8 0.0-6.0 [facility] CenterBasophils (%) (Auto)2019-06-25 06:38:00* Test Item Value Reference Range Interpretation Comments Basophils (%) (Auto) (test code = 706-2) 0.5 0.0-1.0 [facility] CenterIM GRANULOCYTES %2019-06-25 06:38:00* Test Item Value Reference Range Interpretation Comments IM GRANULOCYTES % (test code = IM GRANULOCYTES %) 0.4 0.0- 1.0 [facility] CenterNeutrophils # (Auto)2019-06-25 06:38:00* Test Item Value Reference Range Interpretation Comments Neutrophils # (Auto) (test code = 751-8) 4.9 2.1-6.9 [facility] CenterLymphocytes # (Auto)2019-06-25 06:38:00* Test Item Value Reference Range Interpretation Comments Lymphocytes # (Auto) (test code = 06836-8) 1.8 1.0-3.2 [facility] CenterMonocytes # (Auto)2019-06-25 06:38:00* Test Item Value Reference Range Interpretation Comments Monocytes # (Auto) (test code = 742-7) 1.0 0.2-0.8 H [facility] CenterEosinophils # (Auto)2019-06-25 06:38:00* Test Item Value Reference Range Interpretation Comments Eosinophils # (Auto) (test code = 711-2) 0.1 0.0-0.4 [facility] CenterBasophils # (Auto)2019-06-25 06:38:00* Test Item Value Reference Range Interpretation Comments Basophils # (Auto) (test code = 704-7) 0.0 0.0-0.1 [facility] CenterAbsolute Immature Granulocyte (auto 2019-06-25 06:38:00* Test Item Value Reference Range Interpretation Comments Absolute Immature Granulocyte (auto (dania t code = Absolute Immature Granulocyte (auto) 0.03 0-0.1 [facility] CenterLactic Acid [id number] 19:04:00* Test Item Value Reference Range Interpretation Comments Lactic Acid Level (test code = Lactic Acid Level) 0.7 0.5- 2.0 [facility] CenterLactic Acid Tyykm8123-82-22 19:04:00* Test Item Value Reference Range Interpretation Comments Lactic Acid Level (test code = Lactic Acid Level) 0.7 0.5- 2.0 [facility] CenterUrine [id number] 16:54:00* Test Item Value Reference Range Interpretation Comments Urine WBC (test code = 5821-4) >50 0-5 H [facility] CenterUrine [id number] 16:54:00* Test Item Value Reference Range Interpretation Comments Urine RBC (test code = 61161-7) 11-20 0-5 H [facility] CenterUrine Byvhbrrt1349-88-61 16:54:00* Test Item Value Reference Range Interpretation Comments Urine Bacteria (test code = 18175-8) MODERATE NONE H [facility] CenterUrine Epithelial Ntgsk5840-78-50 16:54:00 * Test Item Value Reference Range Interpretation Comments Urine Epithelial Cells (test code = 22644-3) MODERATE NONE [facility] CenterCT ABDOMEN/PELVIS [id number] 16:53:00 [place] [address] Patient Name: ANNA MAYO MR #: [id number] : 04/1975 Age/Sex: 44/F Req #: [id number] Adm Physician: JACEK HENDERSON MD Ordered by: TRAY SHAH DO Report #: [id number] Location: [facility] Room/Bed: [place] [address] Procedure: 0218-[address]/CT ABDOMEN/PELVIS WO Exam [...] Color (test code = 5778-6) YELLOW YELLOW [facility] CenterUrine Rxsktch8331-99-31 16:27:00* Test Item Value Reference Range Interpretation Comments Urine Clarity (test code = 48388-1) CLOUDY CLEAR H [facility] CenterUrine Specific Gqlxlva4946-98-73 16:27:00 * Test Item Value Reference Range Interpretation Comments Urine Specific [place] (test code = 5811-5) 1.025 1.010-1.02 5 [facility] CenterU[facility] [id number] 16:27:00* Test Item Value Reference Range Interpretation Comments Urine pH (test code = 19076-7) 6 5-7 [facility] Center[facility] Leukocyte Ezirzhbt2893-57-47 16:27:00* Test Item Value Reference Range Interpretation Comments Urine Leukocyte Esterase (test code = 5799-2) 1+ NEGATIVE H [facility] CenterUrine Tfsobvp3364-45-73 16:27:00* Test Item Value Reference Range Interpretation Comments Urine Nitrite (test code = 21115-4) NEGATIVE NEGATIVE [facility] CenterU[facility] Ogchvbo9322-53-32 16:27:00* Test Item Value Reference Range Interpretation Comments Urine Protein (test code = 5804-0) 1+ NEGATIVE H [facility] CenterUrine Glucose (UA)2019-06-24 16:27:00* Test Item Value Reference Range Interpretation Comments Urine Glucose (UA) (test code = 2349-9) NEGATIVE NEGATIVE [facility] CenterU[facility] Gkyijqp8828-35-32 16:27:00* Test Item Value Reference Range Interpretation Comments Urine Ketones (test code = 38232-3) NEGATIVE NEGATIVE [facility] CenterU[facility] Kzilkllqbbdy0534-68-23 16:27:00* Test Item Value Reference Range Interpretation Comments Urine Urobilinogen (test code = 43646-7) 0.2 0.2-1 [facility] CenterU[facility] Mismbbsyg5236-44-74 16:27:00* Test Item Value Reference Range Interpretation Comments Urine Bilirubin (test code = 1978-6) NEGATIVE NEGATIVE [facility] Rrftm6044-99-54 16:27:00* Test Item Value Reference Range Interpretation Comments Urine Blood (test code = 93708-3) 3+ NEGATIVE H [facility] Jmygqkn5587-22-27 08:52:00* Test Item Value Reference Range Interpretation Comments Urine Culture (test code = 630-4) No Result Data Provided [facility] Dtkgwxs3968-97-64 08:52:00* Test Item Value Reference Range Interpretation Comments Urine Culture (test code = 630-4) No Result Data Provided [facility] Qrihncx2924-40-31 08:48:00* Test Item Value Reference Range Interpretation Comments Urine Culture (test code = 630-4) No Result Data Provided [facility] Ucuqxwj3843-61-57 08:48:00* Test Item Value Reference Range Interpretation Comments Urine Culture (test code = 630-4) No Result Data Provided [facility] CenterABDOMEN-1VIEW (KUB)2019-05-15 13:47:00 [place] [address] Patient Name: ANNA MAYO MR #: [id number] : 1975 Age/Sex: 44/F Req #: [id number] Adm Physician: Ordered by: MELINA GLEASON MD Report #: [id number] Location: OR Room/Bed: Procedure: [id number] DX/ABDOME N-1VIEW (KUB) Exam Date: 05/15/19 Exam [...] 1:59 PM Dictated By: TUNG GAMA MD 6133 Transcribed By: MAGUI on 05/15/19 1352 COPY TO: MELINA GLEASON MD CYSTOGRAM 3+MEDCE2024-97-50 15:43:00 [place] [address] Patient Name: ANNA MAYO MR #: [id number] : 1975 Age/Sex: 44/F Req #: [id number] Adm Physician: Ordered by: WILLOW PIMENTEL MD Report #: [id number] Location: DX Room/Bed: Procedure: [id number] DX/CY STOGRAM 3+VIEWS Exam Date: 04/23/19 Exam Time: 1410 REPORT STATUS: Signed ADDENDUM #1 ADDENDUM: The referring physician was incorrectly entered into the system as Dr. Pimentel. The correct referring physician is Dr. Melina Gleason. The report will be forwarded to Dr. Gleason by the radiology [facility]. Signed by: Lizet Lu MD on 04/24/2019 [...] minutes. Fluoroscopy do se: 16.8 mGy (LILIAN) Library Media Assistant views demonstrates multiple surgical clips in the [...] PIMENTEL MD CT ABDOMEN/PELVIS WO 2019-04-23 15:31:00 [place] [address] Patient Name: ANNA MAYO MR #: [id number] : 1975 Age/Sex: 44/F Req #: [id number] Adm Physician: Ordered by: WILLOW PIMENTEL MD Report #: [id number] Location: DX Room/Bed: Procedure: [id number] CT/CT ABDOMEN/PELVIS WO Exam Date: 04/23/19 Exam [...] 3. Sigmoid diverticulosis. Signed by : Tray Msaon on 04/23/2019 3:43 PM Dictated By: TRAY MASON MD Elec tronically Signed By: TRAY MASON MD on 04/24/19 1038 Transcribed By: MAGUI on 04/23/19 7062 COPY TO: WILLOW PIMENTEL MD [facility] [id number] 06:09:00* Test Item Value Reference Range Interpretation Comments HEMOGLOBIN (test code = HGB) 8.8 gram/dL 11.5-15.5 L HEMATOCRIT (test code = HCT) 27.1 % 36.0-46.0 L COMPREHENSIVE METABOLIC [id number] 20:35:00* Test Item Value Reference Range Interpretation [...] due to change in reagent. COMPREHENSIVE METABOLIC [id number] 20:32:00* Test Item Value Reference Range Interpretation [...] code = ALKP) IUnit/L 45-117 CBC W/AUTO [id number] 20:17:00* Test Item Value Reference Range Interpretation [...] code = NRBC#) 0.00 K/mm3 0.0-0.1 N [id number] 17:35:00 RUN DATE: 04/11/19 [facility] PAGE 1 RUN TIME: 1736 Specimen Inqui ry RUN USER: INTERFACE PATIENT: ANNA MAYO ACCT #: [id number] LOC: JOSEF U #: [id number] AGE/SX: 43/F ROOM: 2036 RE04/09/19REG DR: Artemio Feliciano MD : [birth year] BED: A DIS: STATUS: ADM IN TLOC: SPEC #: [id number] RECD: 04/09/19 STATUS: SALINA MCGINNIS #: [id number] SANDY: 04/09/19- SUBM DR: Artmeio Feliciano MD ENTERED: 04/09/19 SP TYPE: UTERUS OTHR DR: Lauren Candelaria DO ORDERED: GROSS COPIES TO: Rossy Candelaria DO [address] [place] [address] Artemio Feliciano MD [address] [place], [place] [id number] MARKERS: ABNORMAL TISSUE, UTERUS PROCEDURES: GROSS (04/11/19-160) [...] ON NEXT PAGE ------ ------RUN DATE: 04/11/19 [facility] PAGE 2 RUN TIME: 1736 Specimen Inquiry RUN USER: INTERFACE SPEC #: [id number] PATIENT: ANNA MAYO [place] #[id number] (Continued) FINAL DIAGNOSIS (Continued) RRB/lay A 59388o4 MACROSCOPIC The s anup is received in [...] endometrial cavity is compressed by an intramural nagelo-white well circumscribed and firm nodule andres uring [...] fluid. No other gross abnormalities are seen. Reconciliation Manager sections including omental adhesion and ovarian cyst are submitted as (2A-2C). GROSS PERFOR MED AT [facility] [address] [place] [address] [phone])[phone] CONTINUED ON NEXT PAGE RUN DATE: 04/11/19 [place] [facility] PAGE 3 RUN TIME: 1736 Specimen Inquiry RUN USER: INTERFACE SPEC #: [id number] PATIENT: ANNA MAYO #[id number] (Continued) MICROSCOPIC All of the stains, including any controls performed, stain appropriately. MICROSCOPIC PERFORMED AT [facility] [address] [facility] [address] [phone])[phone] PERFORMING SITE Diagnosis performed at: A [facility] [address] [place] [address] S igned SIGNATURE ON FILE Niranjan Jackson MD 04/11/19 1735 E ND OF REPORT CBC W/AUTO [id number] 07:06:00* Test Item Value Reference Range Interpretation Comments WHITE BLOOD CELL (test code = WBC) 9.9 K/mm3 4.5-12.5 N RED BLOOD CELL (test code = RBC) 2.20 mill/mm3 3.7-5.2 L HEMOGLOBIN (test code = HGB) 6.8 gram/dL 11.5-15.5 L RESULT VERIFIED BY REPEAT ANALYSIS HEMATOCRIT (test code = HCT) 21.4 % 36.0-46.0 LL Results called to [id number] by EFREM 04/11/19 0705Critical results verified and [...] (test code = MDIFF) NO COMPREHENSIVE METABOLIC [id number] 07:01:00* Test Item Value Reference Range Interpretation [...] in reagent. - XR ABDOMEN AP 1 [id number] 09:00:00 FAX: Melina Rao MD [phone] [place]: St: [facility] FAX: Rossy Benavides DO [phone] FAX: Artemio Harmon MD [phone] Name: ANNA MAYO [facility] : 1975 Age/S: 43/F [address] Unit #: [id number] Loc: V.2036 [place] [address] Phys: Melina Gleason MD Acct: [id number] Dis Date: Status: ADM IN PH ONE #: [phone] Exam Date: 04/10/2019 0832 FAX #: [phone] Reason: EVALUATE STENT POSITION AND KIDNEY STONES, NG L EXAMS: CPT CODE: [id number] XR ABDOMEN AP 1 V 61885 HISTORY: EVAL UATE STENT POSITION AND KIDNEY [...] (0903) PAGE 1 Signed Report COMPREHENSIVE METABOLIC [id number] 07:46:00* Test Item Value Reference Range Interpretation [...] due to change in reagent. COMPREHENSIVE METABOLIC [id number] 07:40:00* Test Item Value Reference Range Interpretation [...] code = ALKP) IUnit/L 45-117 CBC W/AUTO [id number] 07:09:00* Test Item Value Reference Range Interpretation [...] MDIFF) NO - CT ABD PELVIS W/O [id number] 19:19:00 Name: ANNA MAYO [facility] : 1975 Age/S: 43 / F [address] [facility] Unit #: [id number] Loc: [place] [address] Phys: Artemio Feliciano MD Acct: [id number] Dis Date: Status: REG [facility] PHONE #: [phone] Exam Date: 04/09/2019 8286 FAX #: [phone] Reason: EVALUATE URETER AND KIDNEY EXAMS: CPT CODE: [id number] CT ABD PELVIS W/O CONT 39005 HISTORY: Evaluate ureter and kidney. COMPARISON: IVP from same day and CT scan from September 14, 2014. CT abdomen and pelvis: Stone protocol. Automated exposure control. Location: [facility]. CT ABDOMEN: The lung bases are clear. [...] Signed Report (CONTINUED) N woody: ANNA MAYO [facility] : 1 06/18/1974 Age/S: 43 / F [address] [facility] Unit #: [id number] Loc: [place] [address] Phys: Artemio Feliciano MD Acct: [id number] Dis D ate: Status: REG [facility] PHONE #: [phone] Exam Date: 04/09/2019 1857 FAX #: [phone] Reason: EVALUATE URETER AND KIDNEY EXAMS: CPT CODE: [id number] CT ABD PELVIS W/O CONT 02443 <Continued> wall from recent surgery. No drainable [...] Report - XR IVP W OR W/O [id number] 17:36:00 FAX: Rossy Benavides DO [phone] [place]: St: REG FAX: Artemio Harmon MD [phone] Name: ANNA MAYO [facility] : 1975 Age/S: 43/F [address] [facility] Unit #: [id number] Loc: [place] [address] Phys: Artemio Feliciano MD Acct: [id number] Dis Date: Status: REG [facility] PHONE #: [phone] Exam Date: 04/09/2019 1455 FAX #: [phone] Reason: EVALUATE URETERS AFTER HYSTERECTOMY EXAMS: CPT CODE: [id number] XR IVP W OR W/O ANSON 18855 HISTORY: Ureters evaluation after hysterectomy. CO MPARISON: No recent images available. Location: [facility]. IVP: 100 mL of Isovue 370 administered. Sequential images obtained. Library Media Assistant view of the abdomen demonstrating patient is [...] scan to evaluate for ureteral injury. at 173 Reported and signed by: Andrés Morales M.D. CC: Rossy Candelaria; Artemio Feliciano MD Technologist: Ankita Siegel RT(R); Concepcion Arango RT(R); ... Trnscrd Date/Time/By: 04/09/2019 (8362) : By: Alonzo .TH4 Orig Print D/T: S: 04/09/2019 (1915) PAGE 1 Signed Report COMPREHENSIVE METABOLIC [id number] 18:14:00* Test Item Value Reference Range Interpretation [...] due to change in reagent. HCG SERUM [id number] 18:14:00* Test Item Value Reference Range Interpretation Comments HCG SERUM QUAL (test code = HCGQL) NEGATIVE NEGATIVE This HCGQL test is NOT applicable for MALE patients.Check with nurse about probable order error.If Tumor Marker Test needed, nurse should order test "HCGTU"(Test #550.01956) COMPREHENSIVE METABOLIC [id number] 17:42:00* Test Item Value Reference Range Interpretation [...] due to change in reagent. HCG SERUM [id number] 17:42:00* Test Item Value Reference Range Interpretation Comments HCG SERUM QUAL (test code = HCGQL) NEGATIVE COMPREHENSIVE METABOLIC [id number] 17:32:00* Test Item Value Reference Range Interpretation [...] code = ALKP) IUnit/L 45-117 HCG SERUM [id number] 17:32:00* Test Item Value Reference Range Interpretation Comments HCG SERUM QUAL (test code = HCGQL) NEGATIVE CBC W/AUTO [id number] 17:17:00* Test Item Value Reference Range Interpretation [...] (test code = MDIFF) NO CBC W/AUTO [id number] 17:15:00* Test Item Value Reference Range Interpretation [...] (test code = BA#) K/mm3 0.0-0.2 Urine [id number] 09:43:00* Test Item Value Reference Range Interpretation Comments Urine Test (test code = 2106-3) NEGATIVE NEGATIVE [facility] CenterParathyroid Jodcdev0000-17-82 21:37:00* Test Item Value Reference Range Interpretation Comments Parathyroid Hormone (test code = 2731-8) 26 15-65 [facility] CenterCalcium (Send out)2019-01-01 21:37:00* Test Item Value Reference Range Interpretation Comments Calcium (Send out) (test code = 20381-3) 9.7 8.7-10.2 [facility] CenterParathyroid Hormone Interpretation 2019-01-01 21:37:00* Test Item Value Reference Range Interpretation Comments Parathyroid Hormone Interpretation (test code = Parathyroid Hormone Interpretation) Comment . Interpretation Intact PTH Calcium (pg/mL) (mg/dL)Normal 15 - 65 8.6 - 10.2Pr imary Hyperparathyroidism >65 >10.2Secondary Hyperparathyroidism >65 <10.2Non-Parathyroid Hypercalcemia <65 >10.2Hypoparathyroidism <15 < 8.6Non- Parathyroid Hypocalcemia 15 - 65 < 8.6Performed at: - [facility] [id number] Director: Derek Galvan MD, Phone: [phone] at: [facility] [id number] Director: Mely Samayoa MD, Phone: [phone] [facility] Medical CenterParathyroid Hjqyiek1517-89-51 21:37:00* Test Item Value Reference Range Interpretation Comments Parathyroid Hormone (test code = 2731-8) 26 15-65 [facility] CenterCalcium (Send out)2019-01-01 21:37:00* Test Item Value Reference Range Interpretation Comments Calcium (Send out) (test code = 48106-1) 9.7 8.7-10.2 [facility] CenterParathyroid Hormone Interpretation 2019-01-01 21:37:00* Test Item Value Reference Range Interpretation Comments Parathyroid Hormone Interpretation (test code = Parathyroid Hormone Interpretation) Comment . Interpretation Intact PTH Calcium (pg/mL) (mg/dL)Normal 15 - 65 8.6 - 10.2Pr imary Hyperparathyroidism >65 >10.2Secondary Hyperparathyroidism >65 <10.2Non-Parathyroid Hypercalcemia <65 >10.2Hypoparathyroidism <15 < 8.6Non- Parathyroid Hypocalcemia 15 - 65 < 8.6Performed at: [facility] [id number] Director: Derek Galvan MD, Phone: [phone] at: [facility] [id number] Director: Mely Samayoa MD, Phone: [phone] ([facility])2018-12-31 15:56:00 [place] [address] Patient Name: ANNA MAYO MR #: [id number] : 1975 Age/Sex: 43/F Req #: [id number] Adm Physician: Ordered by: MELINA GLEASON MD Report #: [id number] Location: OR Room/Bed: Procedure: [id number] DX/ABDOME N-1VIEW (KUB) Exam Date: 12/31/18 Exam [...] 3:58 PM Dictated By: EARL BURDEN MD 1492 Transcribed By: MAGUI on 12/31/18 7686 C OPY TO: MELINA GLEASON MD Uric [id number] 15:29:00* Test Item Value Reference Range Interpretation Comments Uric Acid (test code = 3084-1) 5.4 2.6-8.0 [facility] CenterUric [id number] 15:29:00* Test Item Value Reference Range Interpretation Comments Uric Acid (test code = 3084-1) 5.4 2.6-8.0 [facility]
--- NOTE | 2019-12-22 22:37 | Diagnostic Imaging Report ---
EXAM: CT Abdomen and Pelvis WITHOUT contrast INDICATION: Right flank pain COMPARISON: Abdominal CT 07/08/2019 TECHNIQUE: Abdomen and pelvis were scanned utilizing a multidetector helical scanner from the lung base to the pubic symphysis without administration of IV contrast. Absence of intravenous contrast decreases sensitivity for detection of focal lesions and vascular pathology. Coronal and sagittal reformations were obtained. Routine protocol was performed. IV CONTRAST: None ORAL CONTRAST: None COMPLICATIONS: None RADIATION DOSE: Total DLP: 518 mGy*cm Estimated effective dose: (DLP x 0.015 x size factor) mSv CTDIvol has been reviewed. It is below the limits set by the Radiation Protocol Committee (RPC). Dose modulation, iterative reconstruction, and/or weight based adjustment of the mA/kV was utilized to reduce the radiation dose to as low as reasonably achievable. FINDINGS: LINES and TUBES: None. LOWER THORAX: Unremarkable HEPATOBILIARY: No focal hepatic lesions. No biliary ductal dilation. GALLBLADDER: There are cholecystectomy clips. SPLEEN: No splenomegaly. PANCREAS: No focal masses or ductal dilatation. ADRENALS: No adrenal nodules KIDNEYS/URETERS: A 7 mm obstructive calculus in the mid right ureter with mild/moderate upstream right hydroureteronephrosis. Left renal scarring/volume loss with punctate nonobstructive calculi. Perinephric linear scar from left nephrostomy track. No mass lesions. GI TRACT: No abnormal distention, wall thickening, or evidence of bowel obstruction. Appendix is normal. PELVIC ORGANS/BLADDER: Surgical changes of hysterectomy. No adnexal masses. Urinary bladder under distended without gross abnormality. Similar appearance of the 5 cm cyst in the vesicovaginal recess present/smaller since 04/13/2019. LYMPH NODES: No lymphadenopathy. VESSELS: Unremarkable. PERITONEUM / RETROPERITONEUM: No free air or fluid. BONES: Demineralization. SOFT TISSUES: Unremarkable. IMPRESSION: 1. A 7 mm obstructive calculus in the mid right ureter with mild/moderate upstream right hydroureteronephrosis. Left renal scarring/volume loss with punctate nonobstructive calculi. 2. Stable 5 cm cystic focus in the vesicovaginal pelvic recess, suspect is a peritoneal inclusion cyst, present/smaller since 04/13/2019. Signed by: Catalino Delgado DO on 12/22/2019 10:33 PM
[2019-12-23] VITALS (10 sets, daily range): BP systolic 125–151; BP diastolic 83–101
--- NOTE | 2019-12-23 00:08 | NUR ---
Received patient in bed from ER. Pt AAOx4. Able to make needs known. Resp even and unlabored. No SOb/resp distress noted. Skin warm and dry to touch. C/O right plank pain. Rates a 02/13. Has Lt AC 18g and Rt forearm 20g. Both dressings dry and intact and flush well. Nonskid socks applied. bed in locked and low position. Pt medicated for pain.
[2019-12-23] MEDS: HYDROMORPHONE 1MG/1ML INJ IV PRN ×3 (01:05→19:53)
[2019-12-23] MEDS: ONDANSETRON HCL INJ 2MG/ML 2ML 2 MG/ML VIAL IV PRN ×3 (02:01→19:53)
[2019-12-23 04:59] LABS: BASOPHILS # (AUTO) 0.1 (0.0-0.1); BASOPHILS % 0.4 % (0.0-1.0); EOSINOPHILS # (AUTO) 0.1 (0.0-0.4); EOSINOPHILS % 0.6 % (0.0-6.0); HEMATOCRIT 36.9 % (34.2-44.1); HEMOGLOBIN 12.3 g/dL (12.0-16.0); LYMPHOCYTES # (AUTO) 1.3 (1.0-3.2); MEAN CORPUSCULAR HEMOGLOBIN 30.9 pg (28-32); MEAN CORPUSCULAR HGB CONC 33.3 g/dL (31-35); MEAN CORPUSCULAR VOLUME 92.7 fL (81-99); MONOCYTES # (AUTO) 0.6 (0.2-0.8); MONOCYTES % 4.7 % (4.4-11.3); NEUTROPHILS # (AUTO) 9.6 (2.1-6.9); NEUTROPHILS % 82.9 % (38.7-80.0); PLATELET COUNT 243 x10e3/uL (140-360); RED BLOOD COUNT 3.98 x10e6/uL (3.6-5.1); RED CELL DISTRIBUTION WIDTH 12.3 % (11.7-14.4)
[2019-12-23 05:32] LABS: ALANINE AMINOTRANSFERASE 16 IU/L (0-55); ALBUMIN 3.3 g/dL (3.5-5.0); ALBUMIN/GLOBULIN RATIO 1.1 (0.8-2.0); ALKALINE PHOSPHATASE 91 IU/L (40-150); ANION GAP 14.3 mmol/L (8-16); BLOOD UREA NITROGEN 14 mg/dL (7-26); BUN/CREATININE RATIO 18 (6-25); CALCIUM 8.6 mg/dL (8.4-10.2); CARBON DIOXIDE 21 mmol/L (22-29); CHLORIDE 108 mmol/L (98-107); EST GLOMERULAR FILTRATION RATE > 60 ML/MIN (60-); GLUCOSE 128 mg/dL (74-118); POTASSIUM 4.3 mmol/L (3.5-5.1); SODIUM 139 mmol/L (136-145)
[2019-12-23] MEDS: SODIUM CHLORIDE 0.9% 1000ML 1,000 ML IV SCH ×5 (09:35→22:30)
--- NOTE | 2019-12-23 13:55 | NUR ---
Patient resting in bed, Dr Rosibel Hatfield had rounds, patient denies any pain this time, No distress noted
--- NOTE | 2019-12-23 15:18 | Diagnostic Imaging Report ---
Exam: KUB - 2 views Indication: Renal calculus Comparison: CT abdomen and pelvis of 12/22/2019 Findings: 5 mm calcific density in the right lower abdomen just lateral to the L4 transverse process may correspond with the right ureteral calculus seen on prior CT of 12/22/2019. Smaller right and left renal calculi from the prior CT are beyond the resolution of this radiograph. No additional radiographically apparent urinary calculi. Nonobstructive bowel gas pattern. No free air. Status post cholecystectomy. No acute osseous injury. Surgical clips in the right pelvis. Impression: 5 mm calcific density in the right lower abdomen lateral to the L4 transverse process may correspond with right ureteral calculus seen on prior CT of 12/22/2019. No additional radiographically apparent renal calculi. Signed by: Gaudencio Vasquez MD on 12/23/2019 3:15 PM
[2019-12-23] MEDS: CEFTRIAXONE SOD 1 GM/NS 50 ML 50 ML IV SCH (21:40)
[2019-12-24] MEDS: ONDANSETRON HCL INJ 2MG/ML 2ML 2 MG/ML VIAL IV PRN ×3 (00:17→13:15)
[2019-12-24] MEDS: HYDROMORPHONE 1MG/1ML INJ IV PRN ×5 (00:17→22:39)
[2019-12-24 04:09] VITALS: BP 128/83
[2019-12-24] MEDS: SODIUM CHLORIDE 0.9% 1000ML 1,000 ML IV SCH ×4 (04:13→22:16)
[2019-12-24 05:52] LABS: BASOPHILS # (AUTO) 0.1 (0.0-0.1); BASOPHILS % 0.9 % (0.0-1.0); EOSINOPHILS # (AUTO) 0.2 (0.0-0.4); EOSINOPHILS % 3.5 % (0.0-6.0); HEMATOCRIT 33.5 % (34.2-44.1); HEMOGLOBIN 11.2 g/dL (12.0-16.0); LYMPHOCYTES # (AUTO) 1.9 (1.0-3.2); LYMPHOCYTES % 29.1 % (18.0-39.1); MEAN CORPUSCULAR HEMOGLOBIN 32.7 pg (28-32); MEAN CORPUSCULAR HGB CONC 33.4 g/dL (31-35); MONOCYTES # (AUTO) 0.5 (0.2-0.8); MONOCYTES % 8.1 % (4.4-11.3); NEUTROPHILS # (AUTO) 3.8 (2.1-6.9); NEUTROPHILS % 58.1 % (38.7-80.0); PLATELET COUNT 194 x10e3/uL (140-360); RED BLOOD COUNT 3.42 x10e6/uL (3.6-5.1); RED CELL DISTRIBUTION WIDTH 12.8 % (11.7-14.4)
[2019-12-24 06:03] LABS: ANION GAP 11.8 mmol/L (8-16); BLOOD UREA NITROGEN 12 mg/dL (7-26); BUN/CREATININE RATIO 16 (6-25); CARBON DIOXIDE 21 mmol/L (22-29); CHLORIDE 109 mmol/L (98-107); CREATININE, SERUM 0.75 mg/dL (0.57-1.11); EST GLOMERULAR FILTRATION RATE > 60 ML/MIN (60-); GLUCOSE 99 mg/dL (74-118); POTASSIUM 3.8 mmol/L (3.5-5.1); SODIUM 138 mmol/L (136-145)
--- NOTE | 2019-12-24 07:00 | NUR ---
bedside shift report received pt in stable condition denies pain at this time, updated on poc voiced understanding, ivf infusing to r ac 20g no ss of infiltration noted, no other co vocied call light in reach will continue to monitor
[2019-12-24 08:37] VITALS: BP 128/81
[2019-12-24 08:57] VITALS: BP 128/81
--- NOTE | 2019-12-24 09:00 | NUR ---
down to or left in stable condition
[2019-12-24] MEDS ORDERED: B&O 60MG R/S 60 MG SUPP PR ONE (09:50)
[2019-12-24] MEDS ORDERED: IOPAMIDOL 300MG/ML 50ML INFUS..BTL IV ONE (09:50)
[2019-12-24] MEDS ORDERED: B&O 60MG R/S 60 MG SUPP PR PRN (10:15)
[2019-12-24] MEDS ORDERED: PHENAZOPYRIDINE HCL 100 MG TAB PO PRN (10:15)
--- NOTE | 2019-12-24 11:22 | NUR ---
back to aaox3, pt in stable condition, ivf reconnect, will continue to monitor
[2019-12-24 12:23] VITALS: BP 120/81
[2019-12-24] MEDS: OXYBUTYNIN CHLORIDE 5 MG TAB PO SCH ×2 (15:00→22:08)
[2019-12-24 16:25] VITALS: BP 122/79
[2019-12-24] MEDS: PROMETHAZINE HCL (IM) 25 MG/ML VIAL IM PRN ×2 (18:00→22:39)
[2019-12-24 20:00] VITALS: BP 146/92
[2019-12-24] MEDS ORDERED: FAMOTIDINE 20 MG/2 ML VIAL IV ONE (20:02)
[2019-12-24] MEDS ORDERED: PROPOFOL IV EMULSION 10 MG/ML 20 ML VIAL ONE (20:02)
[2019-12-24] MEDS ORDERED: METOCLOPRAMIDE HCL 10 MG/2ML VIAL ONE (20:02)
[2019-12-24] MEDS ORDERED: SEVOFLURANE INHAL SOLN 250 ML PEN BTL ONE (20:02)
[2019-12-24] MEDS ORDERED: LIDOCAINE HCL 2% LOCAL INJ 5 ML SDV VIAL INJ ONE (20:02)
[2019-12-24] MEDS ORDERED: LIDOCAINE HCL 2% JELLY 5 ML TUBE ONE (20:02)
[2019-12-24] MEDS ORDERED: ONDANSETRON HCL INJ 2MG/ML 2ML 2 MG/ML VIAL ONE (20:02)
[2019-12-24] MEDS ORDERED: DEXAMETHASONE SOD PHOS INJ 4 MG/ML VIAL ONE (20:02)
[2019-12-24] MEDS ORDERED: MIDAZOLAM HCL 2 MG/2 ML VIAL ONE (21:43)
[2019-12-24] MEDS: CEFTRIAXONE SOD 1 GM/NS 50 ML 50 ML IV SCH (22:08)
--- NOTE | 2019-12-24 22:54 | Operative Report ---
DATE OF PROCEDURE: 12/24/2019 SURGEON: Jaya Gleason MD PREOPERATIVE DIAGNOSES: 1. Obstructing right ureterolithiasis. 2. Right hydronephrosis due to stone. 3. Urinary tract infection. 4. Microscopic hematuria. POSTOPERATIVE DIAGNOSES: 1. Obstructing right ureterolithiasis. 2. Right hydronephrosis due to stone. 3. Urinary tract infection. 4. Microscopic hematuria. 5. Minimal cystocele. 6. Minimal rectocele. OPERATIONS PERFORMED: 1. Cystourethroscopy with bilateral ureteral catheterization and retrograde ureteropyelography (separate procedure performed for the urinary tract infection and microscopic hematuria). 2. Interpretation of retrograde ureteropyelography. 3. Supervision of fluoroscopy, no radiologist present. 4. Right-sided extracorporeal shockwave lithotripsy (separate procedure performed for the obstructing ureterolithiasis, done in a staged fashion). 5. Cystourethroscopy with insertion of right indwelling ureteral stent (separate procedure performed to relieve the hydronephrosis). 6. Pelvic examination under anesthesia. ANESTHESIA: General. COMPLICATIONS: None. CLINICAL SUMMARY: Hilary Elder is a 44-year-old woman with a complex urological history. The patient has had previous nephrolithiasis that were previously managed. The patient also had a previous right ureteral reimplantation due to an injury at the time of Gynecological surgery. The patient had a history of urinary tract infection. She had severe pains and was instructed to go to the emergency room. She was evaluated and subsequently admitted. The patient has failed to pass her stone. Stones past failed to progress despite intravenous hydration and analgesia. Options were discussed. She elected to proceed with surgery as recommended. She is aware of the risks of bleeding, infection, injury to adjacent structures, need for additional procedures and elected to proceed. The patient's urine culture from the emergency room was polymicrobial, and consistent with examination. PROCEDURE IN DETAIL: Informed consent was verified. Hilary Elder was properly identified, taken to the operating room, placed on the lithotripsy table in supine position. Anesthesia was uneventfully begun. The patient's right ureterolithiasis was localized with biplanar fluoroscopy. A total of 3000 shocks were delivered with excellent fragmentation noted. The patient was carefully gently repositioned in dorsal lithotomy position with all pressure points were padded. Her genitalia were prepared and draped in usual sterile fashion. The cystoscope sheath with the obturator in place was atraumatically inserted into the patient's urethra and bladder was drained. Panendoscopy of the bladder revealed no suspicious mucosal lesions and no tumors. There was scarring noted from prior surgery. The patient's right reimplanted ureteral orifice was cephalad and slightly lateral to the mi'kmaq right ureteral orifice. Ureteral catheter was used to cannulate each ureter and retrograde ureteropyelography performed. With fluoroscopic guidance, the right-sided indwelling ureteral stent was then placed to coil the patient's kidney as well as the patient's bladder. The retaining suture was cut short. Interpretation of retrograde ureteropyelography contrast was instilled in retrograde fashion bilaterally. The left side was unremarkable. There were no tumors. There were no stones that were easily visible on today's study. Unobstructed drainage was observed in the left hand side. On the right-hand side, there was a stone and then corresponding filling defect following lithotripsy in the mid ureter. Proximal to that, there was severe hydroureteronephrosis with calyceal blunting. The stent was in good position, coiled the patient's kidney as well as the patient's bladder. Specimen obtained during this surgery included urine culture from the right side of hydronephrotic drip The patient's bladder was drained. Cystoscope was withdrawn. Pelvic examination under anesthesia revealed minimal cystocele and minimal rectocele. No abnormal palpable pelvic masses could be appreciated. There were no obvious mucosal lesions. The patient was then uneventfully reversed from anesthesia and taken to recovery room in stable condition. There were no complications to the procedure. She tolerated the procedure well. Estimated blood loss was minimal. We will plan on monitoring the patient during her hospitalization and then we will plan on returning the patient to the operating room in several weeks to remove her stent, perform ureteroscopy and hopefully render her stent free and stone free. Ongoing urological followup is a must. Jaya MD [place]/[facility] /[id number] cc: Eric Candelaria DO
[2019-12-25] VITALS (7 sets, daily range): BP systolic 126–129; BP diastolic 80–92
[2019-12-25] MEDS: ACETAMINOPHEN/CODEINE 300MG - 30MG TAB PO PRN ×2 (05:00→09:04)
[2019-12-25] MEDS: SODIUM CHLORIDE 0.9% 1000ML 1,000 ML IV SCH (06:30)
--- NOTE | 2019-12-25 07:13 | NUR ---
REPORT GIVEN TO DAYSHIFT NURSE. ALERT AND RESTING IN BED. NO SIGNS IV INFILTRATION. BED LOCKED AND IN LOW POSITION. CALL LIGHT WITHIN REACH.
[2019-12-25] MEDS: OXYBUTYNIN CHLORIDE 5 MG TAB PO SCH (09:05)
[2019-12-25] MEDS ORDERED: CEFTRIAXONE100 GM PO (10:55)
== END 2019-12-25 12:29 | disposition home or self-care (01) | DRG 661 ==
LOC: ER 21:20 → ERHOLD 22:28 → MED/SURG 23:37
PROC: 0T778ZZ Dilation of Left Ureter, Via Natural or Artificial Opening Endoscopic (ICD-10-PCS; 2019-12-24)
PROC: BT141ZZ Fluoroscopy of Kidneys, Ureters and Bladder using Low Osmolar Contrast (ICD-10-PCS; 2019-12-24)
PROC: 0T768DZ Dilation of Right Ureter with Intraluminal Device, Via Natural or Artificial Opening Endoscopic (ICD-10-PCS; principal; 2019-12-24 10:00)
PROC: 0TF68ZZ Fragmentation in Right Ureter, Via Natural or Artificial Opening Endoscopic (ICD-10-PCS; 2019-12-24 10:00)
DX: N13.2 Hydronephrosis with renal and ureteral calculous obstruction (principal); N39.0 Urinary tract infection, site not specified; N81.6 Rectocele; N81.10 Cystocele, unspecified; R31.9 Hematuria, unspecified; Z11.59 Encounter for screening for other viral diseases; D64.9 Anemia, unspecified
CPT/HCPCS: 36415; 50590; 74018; 74176; 80048; 80053; 81001; 85025; 87086; 99284; C1758; C1769; C2617; J0696; J1100; J1170; J2001; J2250; J2405; J2550; J2765; J7030; U0002

== ENCOUNTER → 2020-01-19 | Day surgery (SDC) | payer OTHER ==
--- NOTE | 2020-01-15 15:07 | Diagnostic Imaging Report ---
Exam: [id number] Indication: Renal calculus Comparison: Radiographs 12/23/2019 CT abdomen and pelvis of 12/22/2019 Findings: Right nephroureteral stent. Surgical clips in the right pelvis. The previously seen 5 mm calcific density in the right lower abdomen just lateral to the L4 transverse process is no longer seen. Smaller right and left renal calculi from the prior CT are beyond the resolution of this radiograph. No additional radiographically apparent urinary calculi. Nonobstructive bowel gas pattern. No free air. Impression: Previously seen 5 mm calcific density in the right lower abdomen lateral to the L4 transverse process is no longer seen. Right nephroureteral stent. No additional radiographically apparent renal calculi. Signed by: Dr. Kenny Reece M.D. on 01/15/2020 3:04 PM
[~2020-01-19] MED LIST changes: +ACETAMINOPHEN/CODEINE 300MG - 30MG TAB ONE; +B&O 60MG R/S 60 MG SUPP PR ONE; +CEFTRIAXONE SOD 1 GM/NS 50 ML 50 ML IV ONE; +CEFTRIAXONE100 GM PO; +DEXAMETHASONE SOD PHOS INJ 4 MG/ML VIAL ONE; +GENTAMICIN 80MG/NS 100 ML 200 ML IV ONE; +IOPAMIDOL 300MG/ML 50ML INFUS..BTL IV ONE; +LIDOCAINE HCL 2% LOCAL INJ 5 ML SDV VIAL INJ ONE; +MIDAZOLAM HCL 2 MG/2 ML VIAL ONE; +PROPOFOL IV EMULSION 10 MG/ML 20 ML VIAL ONE; +SEVOFLURANE INHAL SOLN 250 ML PEN BTL ONE
[2020-01-19 09:20] VITALS: BP 136/91
--- NOTE | 2020-02-06 07:10 | Operative Report ---
DATE OF PROCEDURE: 01/19/2020 SURGEON: Jaay Gleason MD PREOPERATIVE DIAGNOSES: 1. Nephrolithiasis. 2. Right indwelling ureteral stent. POSTOPERATIVE DIAGNOSES: 1. Right nephrolithiasis. 2. Right indwelling ureteral stent. 3. Grade 1 cystocele. 4. Grade 1 rectocele. OPERATION PERFORMED: 1. Cystourethroscopy with complicated removal of right indwelling ureteral stent (separate procedure performed with separate scope for the diagnosis of stent). 2. Right ureteroscopy with stone manipulation and extraction (separate procedure performed for the nephrolithiasis). 3. Radiological services with supervision and interpretation, no radiologist present. 4. Interpretation of retrograde ureteropyelography. 5. Supervision of fluoroscopy, no radiologist present. 6. Pelvic examination under anesthesia. ANESTHESIA: General. COMPLICATIONS: None. CLINICAL SUMMARY: Hilary Elder is a 44-year-old woman with a longstanding urological history. She is status post ureteral reimplantation. She has stones. She is brought to the operating room for the above procedures in the extent of the patient's previously. She is aware of the risks of bleeding, infection, injury to adjacent structures, need for additional procedures and elected to proceed. OPERATIVE PROCEDURE IN DETAIL: Informed consent was verified. Hilary Elder was properly identified and taken to the operating room, placed on the cystoscopy table in supine position. Anesthesia was uneventfully begun. The patient was then carefully gently repositioned in dorsal lithotomy position with all pressure points well padded. Her genitalia were prepared and draped in usual sterile fashion. The cystoscope sheath with obturator in place was atraumatically inserted in to the patient's urethra and bladder was drained. Panendoscopy revealed no suspicious of mucosal lesions, no tumors, no stones, and no diverticula. There was a stent emerging from the right ureteral orifice that was newly reconstructed. A guidewire was then placed alongside the stent and the stent was then grasped completely, removed and discarded. Flexible ureteroscope was then placed over the guidewire and guided to the level of the patient's kidney. Panendoscopy revealed no suspicious mucosal lesions. Shakeel's plaques were identified. There was one small stone. The small stone was grasped with Nitinol tipless basket and extracted atraumatically. It should be noted that as we exited from the kidney with the small stone that we identified, we examined the ureter and it was completely unremarkable without any strictures nor stones nor any suspicious lesions. INTERPRETATION OF RETROGRADE URETEROPYELOGRAPHY: Contrast was instilled in a retrograde fashion via the ureteroscope on the right-hand side, which shows some upper urinary tract fullness and calyceal blunting. Nevertheless, unobstructed drainage was observed fluoroscopically. The patient's bladder was drained. Cystoscope was withdrawn. Pelvic examination under anesthesia revealed a grade 1 cystocele, grade 1 rectocele. No abnormal palpable pelvic masses could be appreciated. There were no obvious mucosal lesions. The patient was then uneventfully reversed from anesthesia and taken to recovery room in stable condition. Explicit postop instructions were given. We will follow the patient up in the office. Jaya Gleason MD [place]/[facility] /[id number]
== END | disposition home or self-care (01) ==
LOC: OR 05:38
PROVIDERS: ATTEND Urology
DX: N20.0 Calculus of kidney (principal); Z46.6 Encounter for fitting and adjustment of urinary device; N28.89 Other specified disorders of kidney and ureter; I10 Essential (primary) hypertension; Z88.6 Allergy status to analgesic agent; Z88.2 Allergy status to sulfonamides; Z88.8 Allergy status to other drugs, medicaments and biological substances; Z01.810 Encounter for preprocedural cardiovascular examination; Z01.812 Encounter for preprocedural laboratory examination; Z01.818 Encounter for other preprocedural examination; Z11.59 Encounter for screening for other viral diseases
CPT/HCPCS: 52352; 74018; 74420; 87086; 87186; 88300; 93005; C1758; C1769; J0696; J1100; J1580; J2001; J2250; J2704; Q9967; U0002

== ENCOUNTER 2020-10-18 06:55 | Inpatient (IN) | payer OTHER ==
[~2020-10-18] VITALS: Ht 157.5 cm; Wt 82.6 kg
[~2020-10-18 06:55] MED LIST changes: -ACETAMINOPHEN/CODEINE 300MG - 30MG TAB ONE; -B&O 60MG R/S 60 MG SUPP PR ONE; -CEFTRIAXONE SOD 1 GM/NS 50 ML 50 ML IV ONE; -DEXAMETHASONE SOD PHOS INJ 4 MG/ML VIAL ONE; -GENTAMICIN 80MG/NS 100 ML 200 ML IV ONE; -IOPAMIDOL 300MG/ML 50ML INFUS..BTL IV ONE; -LIDOCAINE HCL 2% LOCAL INJ 5 ML SDV VIAL INJ ONE; -MIDAZOLAM HCL 2 MG/2 ML VIAL ONE; -PROPOFOL IV EMULSION 10 MG/ML 20 ML VIAL ONE; -SEVOFLURANE INHAL SOLN 250 ML PEN BTL ONE
[2020-10-18] MEDS ORDERED: ONDANSETRON HCL INJ 2MG/ML 2ML 2 MG/ML VIAL IV STA (07:26)
[2020-10-18 07:34] LABS: BASOPHILS # (AUTO) 0.1 (0.0-0.1); BASOPHILS % 0.8 % (0.0-1.0); EOSINOPHILS # (AUTO) 0.3 (0.0-0.4); EOSINOPHILS % 3.1 % (0.0-6.0); HEMATOCRIT 42.9 % (34.2-44.1); HEMOGLOBIN 14.2 g/dL (12.0-16.0); LYMPHOCYTES # (AUTO) 2.9 (1.0-3.2); LYMPHOCYTES % 32.3 % (18.0-39.1); MEAN CORPUSCULAR HEMOGLOBIN 30.8 pg (28-32); MEAN CORPUSCULAR HGB CONC 33.1 g/dL (31-35); MEAN CORPUSCULAR VOLUME 93.1 fL (81-99); MONOCYTES # (AUTO) 0.6 (0.2-0.8); NEUTROPHILS # (AUTO) 5.1 (2.1-6.9); NEUTROPHILS % 56.5 % (38.7-80.0); PLATELET COUNT 282 x10e3/uL (140-360); RED BLOOD COUNT 4.61 x10e6/uL (3.6-5.1); RED CELL DISTRIBUTION WIDTH 12.7 % (11.7-14.4)
[2020-10-18] MEDS ORDERED: VALSARTAN80 MG (07:40)
[2020-10-18] MEDS ORDERED: TYLENOL # 31 EA (07:40)
[2020-10-18 07:54] LABS: CLARITY,URINE HAZY (CLEAR); COLOR,URINE YELLOW (YELLOW); KETONES,URINE NEGATIVE (NEGATIVE); LEUKOCYTE ESTERASE ,URINE SMALL (NEGATIVE); NITRITE,URINE NEGATIVE (NEGATIVE); PROTEIN,URINE DIPSTICK NEGATIVE (NEGATIVE); URINE UROBILINOGEN 0.2 mg/dL (0.2 - 1)
[2020-10-18 07:55] LABS: ANION GAP 15.3 mmol/L (8-16); BLOOD UREA NITROGEN 21 mg/dL (7-26); BUN/CREATININE RATIO 24 (6-25); CARBON DIOXIDE 21 mmol/L (22-29); CHLORIDE 106 mmol/L (98-107); CREATININE, SERUM 0.89 mg/dL (0.57-1.11); EST GLOMERULAR FILTRATION RATE > 60 ML/MIN (60-); GLUCOSE 112 mg/dL (74-118); POTASSIUM 4.3 mmol/L (3.5-5.1); SODIUM 138 mmol/L (136-145)
[2020-10-18 08:06] LABS: BACTERIA,URINE MODERATE /HPF; EPITHELIAL CELLS,URINE MODERATE /LPF; RBC,URINE 0-5 /HPF (0-5)
[2020-10-18 08:07] LABS: TRANSITIONAL EPI CELLS,URINE FEW
[2020-10-18] MEDS ORDERED: KETOROLAC TROMETHAMINE 30 MG/ML VIAL IV PRN (08:15)
[2020-10-18] MEDS: FENTANYL CITRATE/PF 100MCG/2 ML INJ IV PRN ×2 (08:28→10:55)
[2020-10-18] MEDS ORDERED: SODIUM CHLORIDE 0.9% 1000ML 1,000 ML IV SCH (08:45)
[2020-10-18] MEDS: CEFTRIAXONE 1 GM in SODIUM CHLORIDE 0.9% 50ML 50 ML IV SCH (09:00)
[2020-10-18] MEDS ORDERED: MORPHINE SULFATE INJ 2 MG/ML SYR IV PRN (09:30)
[2020-10-18] MEDS: SODIUM CHLORIDE 0.9% 1000ML 1,000 ML IV SCH ×3 (09:30→20:25)
[2020-10-18] MEDS: PROMETHAZINE HCL (IM) 25 MG/ML VIAL IM PRN ×2 (10:23→17:31)
[2020-10-18 12:27] VITALS: BP 129/91
[2020-10-18] MEDS ORDERED: HYDROMORPHONE 20MG/ NS 100ML IV PRN (13:30)
[2020-10-18] MEDS: HYDROMORPHONE 2MG/ML 2 MG/ML ML IV PRN ×2 (13:42→17:42)
[2020-10-18 15:59] VITALS: BP 127/90
[2020-10-18] MEDS ORDERED: CITRATE OF MAGNESIA 300ML BOTTLE PO ONE (18:00)
[2020-10-18] MEDS ORDERED: BISACODYL 5 MG TAB EC PO ONE ×2 (20:00→21:40)
[2020-10-18 20:12] VITALS: BP 148/99
[2020-10-18] MEDS ORDERED: PROMETHAZINE 12.5MG/ NACL 0.9% 12.5 MG/50 ML BAG IV ONE (20:45)
[2020-10-18] MEDS ORDERED: PROMETHAZINE 25MG/ NS 50ML (IV) IV PRN (20:45)
[2020-10-18] MEDS ORDERED: VALSARTAN 80 MG TAB PO SCH (20:45)
[2020-10-18 21:00] VITALS: BP 148/99
[2020-10-19] VITALS (9 sets, daily range): BP systolic 122–160; BP diastolic 77–98
[2020-10-19] MEDS: SODIUM CHLORIDE 0.9% 1000ML 1,000 ML IV SCH ×2 (04:04→16:37)
[2020-10-19] MEDS ORDERED: BISACODYL 10 MG SUPP PR ONE (06:00)
[2020-10-19 07:04] LABS: BASOPHILS % 0.5 % (0.0-1.0); EOSINOPHILS # (AUTO) 0.1 (0.0-0.4); EOSINOPHILS % 1.5 % (0.0-6.0); HEMATOCRIT 40.8 % (34.2-44.1); HEMOGLOBIN 13.4 g/dL (12.0-16.0); LYMPHOCYTES # (AUTO) 1.7 (1.0-3.2); LYMPHOCYTES % 22.2 % (18.0-39.1); MEAN CORPUSCULAR HEMOGLOBIN 31.2 pg (28-32); MEAN CORPUSCULAR HGB CONC 32.8 g/dL (31-35); MEAN CORPUSCULAR VOLUME 95.1 fL (81-99); MONOCYTES # (AUTO) 0.6 (0.2-0.8); MONOCYTES % 7.5 % (4.4-11.3); NEUTROPHILS # (AUTO) 5.1 (2.1-6.9); PLATELET COUNT 222 x10e3/uL (140-360); RED BLOOD COUNT 4.29 x10e6/uL (3.6-5.1)
[2020-10-19 07:19] LABS: ANION GAP 13.9 mmol/L (8-16); BLOOD UREA NITROGEN 14 mg/dL (7-26); BUN/CREATININE RATIO 19 (6-25); CALCIUM 8.3 mg/dL (8.4-10.2); CARBON DIOXIDE 22 mmol/L (22-29); CHLORIDE 109 mmol/L (98-107); CREATININE, SERUM 0.75 mg/dL (0.57-1.11); EST GLOMERULAR FILTRATION RATE > 60 ML/MIN (60-); GLUCOSE 97 mg/dL (74-118); POTASSIUM 3.9 mmol/L (3.5-5.1); SODIUM 141 mmol/L (136-145)
[2020-10-19] MEDS: CEFTRIAXONE 1 GM in SODIUM CHLORIDE 0.9% 50ML 50 ML IV SCH (07:38)
[2020-10-19] MEDS: HYDROMORPHONE 2MG/ML 2 MG/ML ML IV PRN ×4 (07:39→21:06)
[2020-10-19] MEDS ORDERED: IOPAMIDOL 300MG/ML 100 ML INFUS..BTL IV ONE (07:43)
[2020-10-19] MEDS ORDERED: CEFTRIAXONE 1 GM VIAL ONE (07:44)
[2020-10-19] MEDS: PROMETHAZINE HCL (IM) 25 MG/ML VIAL IM PRN ×2 (12:25→21:06)
[2020-10-20] MEDS: HYDROMORPHONE 2MG/ML 2 MG/ML ML IV PRN ×3 (01:50→09:48)
[2020-10-20 04:00] VITALS: BP 133/93
[2020-10-20] MEDS: SODIUM CHLORIDE 0.9% 1000ML 1,000 ML IV SCH (05:20)
[2020-10-20 07:45] VITALS: BP 145/103
[2020-10-20 09:00] VITALS: BP 145/103
[2020-10-20] MEDS ORDERED: VALSARTAN 80 MG TAB PO SCH (09:00)
[2020-10-20] MEDS: PROMETHAZINE HCL (IM) 25 MG/ML VIAL IM PRN (09:48)
[2020-10-20] MEDS: CEFTRIAXONE 1 GM in SODIUM CHLORIDE 0.9% 50ML 50 ML IV SCH (09:52)
[2020-10-20 11:52] VITALS: BP 143/88
== END 2020-10-20 13:59 | disposition home or self-care (01) | DRG 690 ==
LOC: ER 07:37 → ERHOLD 09:29 → IMCU 12:25 → OBSVTOIN 12:50
DX: N39.0 Urinary tract infection, site not specified (principal); N20.0 Calculus of kidney; E66.9 Obesity, unspecified; Z68.33 Body mass index [BMI] 33.0-33.9, adult; R35.1 Nocturia; N81.10 Cystocele, unspecified; N81.6 Rectocele; N32.81 Overactive bladder; N28.1 Cyst of kidney, acquired; Z20.822 Contact with and (suspected) exposure to COVID-19
CPT/HCPCS: 36415; 74176; 74400; 80048; 81001; 83605; 84702; 85025; 87040; 87086; 96360; 96361; 96367; 99284; J0696; J2550; J3010; J7030; Q9967; U0002

== ENCOUNTER → 2020-11-16 | Day surgery (SDC) | payer OTHER ==
[2020-11-15 09:00] LABS: BASOPHILS # (AUTO) 0.1 (0.0-0.1); BASOPHILS % 0.5 % (0.0-1.0); EOSINOPHILS # (AUTO) 0.2 (0.0-0.4); EOSINOPHILS % 1.9 % (0.0-6.0); HEMATOCRIT 39.7 % (34.2-44.1); HEMOGLOBIN 13.2 g/dL (12.0-16.0); LYMPHOCYTES # (AUTO) 1.8 (1.0-3.2); LYMPHOCYTES % 13.8 % (18.0-39.1); MEAN CORPUSCULAR HEMOGLOBIN 31.4 pg (28-32); MEAN CORPUSCULAR HGB CONC 33.2 g/dL (31-35); MEAN CORPUSCULAR VOLUME 94.5 fL (81-99); MONOCYTES # (AUTO) 0.8 (0.2-0.8); NEUTROPHILS # (AUTO) 9.9 (2.1-6.9); NEUTROPHILS % 77.4 % (38.7-80.0); PLATELET COUNT 259 x10e3/uL (140-360); RED CELL DISTRIBUTION WIDTH 12.6 % (11.7-14.4)
[2020-11-15 09:23] LABS: ANION GAP 14.1 mmol/L (8-16); CALCIUM 9.2 mg/dL (8.4-10.2); CREATININE, SERUM 0.91 mg/dL (0.57-1.11); POTASSIUM 5.1 mmol/L (3.5-5.1)
[~2020-11-16] MED LIST changes: +B&O 60MG R/S 60 MG SUPP PR ONE; +DEXAMETHASONE SOD PHOS INJ 4 MG/ML VIAL ONE; +FAMOTIDINE 20 MG/2 ML VIAL IV ONE; +FENTANYL CITRATE/PF 100MCG/2 ML INJ ONE; +GENTAMICIN 80MG/NS 100 ML 200 ML IV ONE; +IOPAMIDOL 300MG/ML 50ML INFUS..BTL IV ONE; +LIDOCAINE HCL 2% LOCAL INJ 5 ML SDV VIAL INJ ONE; +MIDAZOLAM HCL 2 MG/2 ML VIAL ONE; +OXYBUTYNIN CHLOR5 MG PO; +POVIDONE IODINE 0.05% 0.05 % ML PO ONE; +PROPOFOL IV EMULSION 10 MG/ML 20 ML VIAL ONE; +SEVOFLURANE INHAL SOLN 250 ML PEN BTL ONE; +TYLENOL # 31 EA; +VALSARTAN80 MG PO
[2020-11-16 09:00] VITALS: BP 126/78
== END | disposition home or self-care (01) ==
LOC: OR 05:23
PROVIDERS: ATTEND Urology
DX: N20.0 Calculus of kidney (principal); N39.0 Urinary tract infection, site not specified; N81.10 Cystocele, unspecified; N81.6 Rectocele; N36.41 Hypermobility of urethra; Z98.890 Other specified postprocedural states; J45.909 Unspecified asthma, uncomplicated; I10 Essential (primary) hypertension; K21.9 Gastro-esophageal reflux disease without esophagitis; Z88.6 Allergy status to analgesic agent; Z88.2 Allergy status to sulfonamides; Z88.8 Allergy status to other drugs, medicaments and biological substances; Z01.810 Encounter for preprocedural cardiovascular examination; Z01.812 Encounter for preprocedural laboratory examination; Z01.818 Encounter for other preprocedural examination; Z20.822 Contact with and (suspected) exposure to COVID-19
CPT/HCPCS: 36415; 50590; 74018; 80048; 84550; 85025; 87086; 87186; 93005; C1758; J1100; J1580; J2001; J2704; Q9967; U0002; J2250; J3010

== ENCOUNTER 2022-02-15 21:06 | Emergency (ER) | payer OTHER ==
[~2022-02-15] VITALS: Ht 157.5 cm; Wt 82.6 kg
[~2022-02-15 21:06] MED LIST changes: -B&O 60MG R/S 60 MG SUPP PR ONE; -DEXAMETHASONE SOD PHOS INJ 4 MG/ML VIAL ONE; -FAMOTIDINE 20 MG/2 ML VIAL IV ONE; -FENTANYL CITRATE/PF 100MCG/2 ML INJ ONE; -GENTAMICIN 80MG/NS 100 ML 200 ML IV ONE; -IOPAMIDOL 300MG/ML 50ML INFUS..BTL IV ONE; -LIDOCAINE HCL 2% LOCAL INJ 5 ML SDV VIAL INJ ONE; -MIDAZOLAM HCL 2 MG/2 ML VIAL ONE; -POVIDONE IODINE 0.05% 0.05 % ML PO ONE; -PROPOFOL IV EMULSION 10 MG/ML 20 ML VIAL ONE; -SEVOFLURANE INHAL SOLN 250 ML PEN BTL ONE
[2022-02-15] MEDS ORDERED: SODIUM CHLORIDE 0.9% 1000ML 1,000 ML IV STA (21:11)
[2022-02-15] MEDS ORDERED: HYDROMORPHONE 1MG/1ML INJ IV STA (21:42)
[2022-02-15 21:56] LABS: BASOPHILS # (AUTO) 0.1 (0.0-0.1); BASOPHILS % 0.7 % (0.0-1.0); EOSINOPHILS # (AUTO) 0.3 (0.0-0.4); EOSINOPHILS % 2.6 % (0.0-6.0); HEMOGLOBIN 13.9 g/dL (12.0-16.0); LYMPHOCYTES # (AUTO) 2.5 (1.0-3.2); LYMPHOCYTES % 25.6 % (18.0-39.1); MEAN CORPUSCULAR HEMOGLOBIN 31.5 pg (28-32); MEAN CORPUSCULAR HGB CONC 33.1 g/dL (31-35); MEAN CORPUSCULAR VOLUME 95.2 fL (81-99); MONOCYTES # (AUTO) 0.7 (0.2-0.8); NEUTROPHILS # (AUTO) 6.1 (2.1-6.9); NEUTROPHILS % 63.8 % (38.7-80.0); PLATELET COUNT 277 x10e3/uL (140-360); RED BLOOD COUNT 4.41 x10e6/uL (3.6-5.1); RED CELL DISTRIBUTION WIDTH 11.8 % (11.7-14.4)
[2022-02-15] MEDS ORDERED: ONDANSETRON HCL INJ 2MG/ML 2ML 2 MG/ML VIAL ONE (22:10)
[2022-02-15 22:14] LABS: ALBUMIN/GLOBULIN RATIO 1.2 (0.8-2.0); ANION GAP 16.2 mmol/L (8-16); CREATININE, SERUM 0.83 mg/dL (0.57-1.11); POTASSIUM 4.2 mmol/L (3.5-5.1)
[2022-02-15] MEDS ORDERED: ONDANSETRON HCL INJ 2MG/ML 2ML 2 MG/ML VIAL IV STA (22:14)
[2022-02-15 22:54] LABS: CLARITY,URINE CLOUDY (CLEAR); COLOR,URINE YELLOW (YELLOW); KETONES,URINE NEGATIVE (NEGATIVE); LEUKOCYTE ESTERASE ,URINE SMALL (NEGATIVE); NITRITE,URINE NEGATIVE (NEGATIVE); PROTEIN,URINE DIPSTICK NEGATIVE (NEGATIVE); URINE UROBILINOGEN 0.2 mg/dL (0.2 - 1)
[2022-02-15 22:58] LABS: AMORPHOUS SEDIMENT,URINE FEW (FEW); BACTERIA,URINE FEW /HPF; EPITHELIAL CELLS,URINE MANY /LPF; RBC,URINE 0-5 /HPF (0-5)
[2022-02-15] MEDS ORDERED: ONDANSETRON ODT4 MG PO (23:14)
[2022-02-15] MEDS ORDERED: ACETAMINOPHEN-1 EAC4 PO (23:14)
[2022-02-15] MEDS ORDERED: CIPRO500 MG PO (23:14)
== END 2022-02-15 23:24 | disposition home or self-care (01) ==
LOC: ER 21:12
DX: R10.30 Lower abdominal pain, unspecified (principal); N13.2 Hydronephrosis with renal and ureteral calculous obstruction; R11.2 Nausea with vomiting, unspecified; M54.50 Low back pain, unspecified; R30.0 Dysuria; I10 Essential (primary) hypertension; J45.909 Unspecified asthma, uncomplicated
CPT/HCPCS: 36415; 74176; 80053; 81001; 81025; 83690; 85025; 87086; 99284; J1170; J2405; J7030

== ENCOUNTER 2023-06-07 15:49 | Inpatient (IN) | payer OTHER ==
[~2023-06-07] VITALS: Ht 157.5 cm; Wt 86.2 kg
[~2023-06-07 15:49] MED LIST changes: +ACETAMINOPHEN-1 EAC4 PO; +CEFUROXIME250 MG PO; +CIPRO500 MG PO; +ONDANSETRON ODT4 MG PO; +PYRIDIUM200 MG PO
[2023-06-07 16:25] LABS: BASOPHILS # (AUTO) 0.1 (0.0-0.1); BASOPHILS % 0.8 % (0.0-1.0); EOSINOPHILS # (AUTO) 0.3 (0.0-0.4); EOSINOPHILS % 4.2 % (0.0-6.0); HEMATOCRIT 45.9 % (34.2-44.1); HEMOGLOBIN 14.9 g/dL (12.0-16.0); LYMPHOCYTES # (AUTO) 2.5 (1.0-3.2); LYMPHOCYTES % 33.8 % (18.0-39.1); MEAN CORPUSCULAR HEMOGLOBIN 31.5 pg (28-32); MEAN CORPUSCULAR HGB CONC 32.5 g/dL (31-35); MONOCYTES # (AUTO) 0.7 (0.2-0.8); MONOCYTES % 9.7 % (4.4-11.3); NEUTROPHILS # (AUTO) 3.7 (2.1-6.9); NEUTROPHILS % 51.4 % (38.7-80.0); PLATELET COUNT 287 x10e3/uL (140-360); RED BLOOD COUNT 4.73 x10e6/uL (3.6-5.1); RED CELL DISTRIBUTION WIDTH 11.7 % (11.7-14.4)
[2023-06-07 16:35] LABS: BILIRUBIN,URINE NEGATIVE (NEGATIVE); CLARITY,URINE HAZY (CLEAR); COLOR,URINE YELLOW (YELLOW); GLUCOSE, URINE NEGATIVE (NEGATIVE); KETONES,URINE NEGATIVE (NEGATIVE); LEUKOCYTE ESTERASE ,URINE MODERATE (NEGATIVE); NITRITE,URINE POSITIVE (NEGATIVE); PH,URINE 6.5 (5 - 7); PROTEIN,URINE DIPSTICK NEGATIVE (NEGATIVE); URINE UROBILINOGEN 0.2 mg/dL (0.2 - 1)
[2023-06-07] MEDS: SODIUM CHLORIDE 0.9% 1000ML 1,000 ML IV SCH ×2 (16:40→20:15)
[2023-06-07] MEDS: HYDROCODONE/APAP 10MG-325MG TAB PO ONE (16:40)
[2023-06-07 16:42] LABS: ANION GAP 17.9 mmol/L (8-16); CALCIUM 9.4 mg/dL (8.4-10.2); CREATININE, SERUM 0.86 mg/dL (0.57-1.11); POTASSIUM 3.9 mmol/L (3.5-5.1)
[2023-06-07 16:47] LABS: BACTERIA,URINE MANY /HPF; EPITHELIAL CELLS,URINE MODERATE /LPF; RBC,URINE 0-5 /HPF (0-5); TRANSITIONAL EPI CELLS,URINE MODERATE
[2023-06-07] MEDS: ONDANSETRON HCL INJ 2MG/ML 2ML 2 MG/ML VIAL IV STA (19:21)
[2023-06-07] MEDS: HYDROMORPHONE 1MG/1ML INJ IV STA (19:21)
[2023-06-07] MEDS ORDERED: ONDANSETRON HCL INJ 2MG/ML 2ML 2 MG/ML VIAL IV PRN (20:00)
[2023-06-07 20:50] VITALS: BP 148/107; PULSE 89; RESP 19; TEMP 97.7; O2SAT 99
[2023-06-07 21:08] VITALS: BP 148/107; PULSE 89; RESP 19; TEMP 97.9
[2023-06-07] MEDS ORDERED: VALSARTAN160 MG PO (21:22)
[2023-06-07 21:30] VITALS: BP 148/107; PULSE 89; RESP 19; TEMP 97.9; O2SAT 100
[2023-06-07] MEDS: PROMETHAZINE 12.5MG/ NACL 0.9% 12.5 MG/50 ML BAG IV ONE (22:26)
[2023-06-07] MEDS: HYDROMORPHONE 1MG/1ML INJ IV PRN (22:37)
[2023-06-08] VITALS (8 sets, daily range): BP systolic 130–163; BP diastolic 87–99; PULSE 85–96; RESP 16–22; TEMP 97.9–98.6; O2SAT 96–99
[2023-06-08 06:45] LABS: BASOPHILS # (AUTO) 0.1 (0.0-0.1); BASOPHILS % 0.9 % (0.0-1.0); EOSINOPHILS # (AUTO) 0.1 (0.0-0.4); EOSINOPHILS % 2.4 % (0.0-6.0); HEMATOCRIT 37.9 % (34.2-44.1); HEMOGLOBIN 12.2 g/dL (12.0-16.0); LYMPHOCYTES # (AUTO) 1.8 (1.0-3.2); LYMPHOCYTES % 31.7 % (18.0-39.1); MEAN CORPUSCULAR HEMOGLOBIN 31.3 pg (28-32); MEAN CORPUSCULAR HGB CONC 32.2 g/dL (31-35); MEAN CORPUSCULAR VOLUME 97.2 fL (81-99); MONOCYTES # (AUTO) 0.5 (0.2-0.8); NEUTROPHILS # (AUTO) 3.3 (2.1-6.9); NEUTROPHILS % 56.8 % (38.7-80.0); PLATELET COUNT 246 x10e3/uL (140-360); RED CELL DISTRIBUTION WIDTH 11.7 % (11.7-14.4); WHITE BLOOD COUNT 5.75 x10e3/uL (4.8-10.8)
[2023-06-08 07:06] LABS: ALBUMIN 3.4 g/dL (3.5-5.0); ALBUMIN/GLOBULIN RATIO 1.2 (0.8-2.0); ANION GAP 13.1 mmol/L (8-16); BILIRUBIN,TOTAL 0.4 mg/dL (0.2-1.2); CALCIUM 8.6 mg/dL (8.4-10.2); CREATININE, SERUM 0.82 mg/dL (0.57-1.11); POTASSIUM 4.1 mmol/L (3.5-5.1); TOTAL PROTEIN 6.3 g/dL (6.5-8.1)
[2023-06-08] MEDS ORDERED: ACETAMINOPHEN 325 MG TAB PO PRN (09:45)
[2023-06-08] MEDS ORDERED: HYDRALAZINE HCL 20 MG/ML VIAL IV PRN (09:45)
[2023-06-08] MEDS: OXYBUTYNIN CHLORIDE 5 MG TAB PO SCH (10:49)
[2023-06-08] MEDS: VALSARTAN 160 MG TAB PO SCH (10:49)
[2023-06-08] MEDS: PROMETHAZINE 12.5MG/ NACL 0.9% 12.5 MG/50 ML BAG IV PRN (11:54)
[2023-06-09 04:33] VITALS: BP 136/92; PULSE 87; RESP 20; TEMP 98.4; O2SAT 97
[2023-06-09 06:55] LABS: BASOPHILS # (AUTO) 0.1 (0.0-0.1); EOSINOPHILS # (AUTO) 0.3 (0.0-0.4); EOSINOPHILS % 6.1 % (0.0-6.0); HEMATOCRIT 36.9 % (34.2-44.1); LYMPHOCYTES % 37.8 % (18.0-39.1); MEAN CORPUSCULAR HGB CONC 32.5 g/dL (31-35); MEAN CORPUSCULAR VOLUME 95.3 fL (81-99); MONOCYTES # (AUTO) 0.4 (0.2-0.8); MONOCYTES % 8.4 % (4.4-11.3); NEUTROPHILS # (AUTO) 2.4 (2.1-6.9); NEUTROPHILS % 46.5 % (38.7-80.0); PLATELET COUNT 225 x10e3/uL (140-360); RED BLOOD COUNT 3.87 x10e6/uL (3.6-5.1); RED CELL DISTRIBUTION WIDTH 11.8 % (11.7-14.4); WHITE BLOOD COUNT 5.21 x10e3/uL (4.8-10.8)
[2023-06-09 07:31] LABS: ALBUMIN 3.3 g/dL (3.5-5.0); ALBUMIN/GLOBULIN RATIO 1.1 (0.8-2.0); ANION GAP 14.1 mmol/L (8-16); BILIRUBIN,TOTAL 0.3 mg/dL (0.2-1.2); CALCIUM 8.5 mg/dL (8.4-10.2); CREATININE, SERUM 0.86 mg/dL (0.57-1.11); MAGNESIUM 1.8 MG/DL (1.3-2.1); POTASSIUM 4.1 mmol/L (3.5-5.1); TOTAL PROTEIN 6.3 g/dL (6.5-8.1)
[2023-06-09 08:12] VITALS: BP 136/92; PULSE 87; RESP 20; TEMP 98.4; O2SAT 97
[2023-06-09 09:28] VITALS: BP 157/108; PULSE 98; RESP 19; TEMP 97; O2SAT 98
[2023-06-09] MEDS ORDERED: CIPROFLOXACIN250 MG PO (11:36)
[2023-06-09 13:17] VITALS: BP 168/94; PULSE 85; RESP 19; TEMP 98.4; O2SAT 98
== END 2023-06-09 14:15 | disposition home or self-care (01) | DRG 690 ==
LOC: ER 15:58 → ERHOLD 19:58 → MED/SURG2 20:43
PROVIDERS: ADMIT Internal Medicine; ATTEND Internal Medicine
DX: N39.0 Urinary tract infection, site not specified (principal); B96.20 Unspecified Escherichia coli [E. coli] as the cause of diseases classified elsewhere; Z90.49 Acquired absence of other specified parts of digestive tract; M15.9 Polyosteoarthritis, unspecified; N32.81 Overactive bladder; G43.909 Migraine, unspecified, not intractable, without status migrainosus; I10 Essential (primary) hypertension; E66.09 Other obesity due to excess calories; Z68.34 Body mass index [BMI] 34.0-34.9, adult; Z97.8 Presence of other specified devices; Z79.899 Other long term (current) drug therapy; Z20.822 Contact with and (suspected) exposure to COVID-19
CPT/HCPCS: 36415; 74176; 80048; 80053; 81001; 81025; 83735; 85025; 87086; 87186; 99284; J1170; J2405; J2543; J2550; J7030; U0002

== ENCOUNTER → 2023-09-19 | Day surgery (SDC) | payer OTHER ==
[2023-09-17 16:26] LABS: BASOPHILS # (AUTO) 0.1 (0.0-0.1); BASOPHILS % 0.8 % (0.0-1.0); EOSINOPHILS # (AUTO) 0.2 (0.0-0.4); EOSINOPHILS % 3.2 % (0.0-6.0); HEMATOCRIT 39.1 % (34.2-44.1); HEMOGLOBIN 13.2 g/dL (12.0-16.0); LYMPHOCYTES # (AUTO) 1.8 (1.0-3.2); LYMPHOCYTES % 27.1 % (18.0-39.1); MEAN CORPUSCULAR HEMOGLOBIN 31.3 pg (28-32); MEAN CORPUSCULAR HGB CONC 33.8 g/dL (31-35); MEAN CORPUSCULAR VOLUME 92.7 fL (81-99); MONOCYTES # (AUTO) 0.4 (0.2-0.8); MONOCYTES % 6.5 % (4.4-11.3); NEUTROPHILS # (AUTO) 4.1 (2.1-6.9); NEUTROPHILS % 62.1 % (38.7-80.0); PLATELET COUNT 246 x10e3/uL (140-360); RED BLOOD COUNT 4.22 x10e6/uL (3.6-5.1); RED CELL DISTRIBUTION WIDTH 12.3 % (11.7-14.4); WHITE BLOOD COUNT 6.63 x10e3/uL (4.8-10.8)
[2023-09-17 16:43] LABS: ANION GAP 16.2 mmol/L (8-16); CALCIUM 10.1 mg/dL (8.4-10.2); CREATININE, SERUM 0.98 mg/dL (0.57-1.11); POTASSIUM 4.2 mmol/L (3.5-5.1); URIC ACID 6.1 mg/dL (2.6-8.0)
[2023-09-18 12:12] LABS: CALCIUM 9.4 mg/dL (8.7-10.2)
[~2023-09-19] MED LIST changes: +CIPROFLOXACIN250 MG PO; +DEXAMETHASONE SOD PHOS INJ 4 MG/ML SDV ONE; +EPHEDRINE SULFATE INJ 50 MG/ML VIAL ONE; +FENTANYL CITRATE/PF 100MCG/2 ML INJ ONE; +GLYCOPYRROLATE INJ 0.2 MG/ML VIAL ONE; +LABETALOL HCL 5 MG/ML 20ML VIAL ONE; +LIDOCAINE HCL 2% LOCAL INJ 5 ML SDV VIAL INJ ONE; +MIDAZOLAM HCL 2 MG/2 ML VIAL ONE; +ONDANSETRON HCL INJ 2MG/ML 2ML 2 MG/ML VIAL ONE; +PROPOFOL IV EMULSION 10 MG/ML 20 ML VIAL ONE; +SEVOFLURANE INHAL SOLN 250 ML PEN BTL ONE; +VALSARTAN160 MG PO
[2023-09-19] MEDS: GENTAMICIN 80MG/NS 100 ML 200 ML IV ONE (07:54)
[2023-09-19] MEDS: LACTATED RINGER'S 1,000 ML ONE (07:54)
[2023-09-19 12:20] VITALS: TEMP 97
[2023-09-19 13:15] VITALS: BP 136/88; PULSE 99; RESP 18; O2SAT 96
== END | disposition home or self-care (01) ==
LOC: OR 07:22
PROVIDERS: ATTEND Urology
DX: N20.0 Calculus of kidney (principal); N39.0 Urinary tract infection, site not specified; N81.10 Cystocele, unspecified; N81.6 Rectocele; N13.70 Vesicoureteral-reflux, unspecified; Z96.82 Presence of neurostimulator; I10 Essential (primary) hypertension; J45.909 Unspecified asthma, uncomplicated; K21.9 Gastro-esophageal reflux disease without esophagitis; G43.909 Migraine, unspecified, not intractable, without status migrainosus; E66.01 Morbid (severe) obesity due to excess calories; Z88.6 Allergy status to analgesic agent; Z88.2 Allergy status to sulfonamides; Z88.8 Allergy status to other drugs, medicaments and biological substances; Z01.810 Encounter for preprocedural cardiovascular examination; Z01.812 Encounter for preprocedural laboratory examination; Z01.818 Encounter for other preprocedural examination; Z79.899 Other long term (current) drug therapy
CPT/HCPCS: 36415; 50590; 74018; 80048; 83970; 84550; 85025; 87086; 87186; 93005; J1100; J1580; J2001; J2250; J2405; J2704; J3010; J3490; J7121

== ENCOUNTER → 2024-05-01 | Day surgery (SDC) | payer OTHER ==
[2024-04-28 13:18] LABS: BASOPHILS % 0.8 % (0.0-1.0); EOSINOPHILS # (AUTO) 0.2 (0.0-0.4); EOSINOPHILS % 3.3 % (0.0-6.0); HEMOGLOBIN 12.7 g/dL (12.0-16.0); LYMPHOCYTES # (AUTO) 1.5 (1.0-3.2); LYMPHOCYTES % 30.7 % (18.0-39.1); MEAN CORPUSCULAR HGB CONC 32.6 g/dL (31-35); MEAN CORPUSCULAR VOLUME 95.1 fL (81-99); MONOCYTES # (AUTO) 0.3 (0.2-0.8); MONOCYTES % 5.8 % (4.4-11.3); NEUTROPHILS # (AUTO) 2.8 (2.1-6.9); PLATELET COUNT 222 x10e3/uL (140-360); RED CELL DISTRIBUTION WIDTH 12.4 % (11.7-14.4); WHITE BLOOD COUNT 4.79 x10e3/uL (4.8-10.8)
[2024-04-28 13:56] LABS: ANION GAP 13.9 mmol/L (8-16); CALCIUM 9.7 mg/dL (8.4-10.2); CREATININE, SERUM 1.08 mg/dL (0.57-1.11); POTASSIUM 4.9 mmol/L (3.5-5.1); URIC ACID 6.2 mg/dL (2.6-8.0)
[~2024-05-01] MED LIST changes: +FAMOTIDINE 20 MG/2 ML VIAL IV ONE; -GLYCOPYRROLATE INJ 0.2 MG/ML VIAL ONE; +LABETALOL HCL 20 ML ONE; -LABETALOL HCL 5 MG/ML 20ML VIAL ONE; -MIDAZOLAM HCL 2 MG/2 ML VIAL ONE; +OMEPRAZOLE40 MG PO; -SEVOFLURANE INHAL SOLN 250 ML PEN BTL ONE; +ZEPBOUND7.5 MG/0.5
[2024-05-01] MEDS: LACTATED RINGER'S 1,000 ML ONE (06:24)
[2024-05-01] MEDS: GENTAMICIN 80MG/NS 100 ML 200 ML IV ONE (06:25)
[2024-05-01 08:33] VITALS: TEMP 99
[2024-05-01] MEDS: LABETALOL HCL 5 MG/ML 20ML VIAL IV ONE (09:30)
[2024-05-01 09:40] VITALS: BP 149/93; PULSE 87; RESP 18; O2SAT 98
== END | disposition home or self-care (01) ==
LOC: OR 07:20
PROVIDERS: ATTEND Urology
DX: N20.0 Calculus of kidney (principal); I10 Essential (primary) hypertension; K21.9 Gastro-esophageal reflux disease without esophagitis; N39.0 Urinary tract infection, site not specified; Z88.6 Allergy status to analgesic agent; Z88.2 Allergy status to sulfonamides; Z88.8 Allergy status to other drugs, medicaments and biological substances; Z01.810 Encounter for preprocedural cardiovascular examination; Z01.812 Encounter for preprocedural laboratory examination; Z01.818 Encounter for other preprocedural examination; Z79.899 Other long term (current) drug therapy
CPT/HCPCS: 36415; 50590; 74018; 80048; 84550; 85025; 93005; J1100; J1580; J2003; J2405; J2704; J3010; J3490; J7121